=== PATIENT | female | born 1950 | race Caucasian/White ===

== ENCOUNTER 2017-03-10 19:42 | Inpatient (IN) | payer MEDICARE ==
[~2017-03-10] VITALS: Ht 162.5 cm; Wt 97.7 kg
--- NOTE | ~2017-03-10 | PR ---
[place], [place] PROGRESS NOTE [id number] UNIT #: [id number] ROOM: 412 DOCTOR: LUIZA REEVES MD BIRTHDATE: [birth year] DOS: 03/14/2017 SUBJECTIVE: The patient continues to do better. OBJECTIVE: VITAL SIGNS: Blood pressure of 150/52, heart rate 50 beats per minute, breathing 28 times per minute, temperature is 98 degrees Fahrenheit. GENERAL APPEARANCE: The patient is alert and oriented x 3, in no visible distress. Obesity and generalized weakness. HEENT AND NECK: Exam within normal limits. CARDIOVASCULAR SYSTEM: Heart rate is regular in rate and rhythm. S1 and S2 normally audible. LUNGS: Clear to auscultation. ABDOMEN: Soft, nontender. No obvious organomegaly. Bowel sounds are present. EXTREMITIES: Without significant cyanosis or edema. IMPRESSION: 1. The patient with left foot infection and diabetic foot ulcer as well as foreign body found on the MRI, is being taken for surgery for foreign body removal by the foot doctors tomorrow. Case was discussed with Dr. Asif. 2. Acute systolic type congestive heart failure, resolved with diuresis. The patient was followed by the swedish masseuse, Dr. Garcia. 3. Type 2 diabetes mellitus. Blood sugars monitored and treated. 4. Chronic constipation, treated with MiraLax. 5. Mixed hyperlipidemia. The patient is on atorvastatin. 6. The patient with acute over chronic kidney disease and diabetic nephropathy. The patient's BUN and creatinine have improved to 52 and 1.97. LUIZA REEVES MD CM:PNTRANS [id number] LUIZA REEVES MD 03/15/17 0431 interface
--- NOTE | ~2017-03-10 | CON ---
[place], [place] REPORT OF CONSULTATION [id number] UNIT #: [id number] ROOM: 412 DOCTOR: GIOVANNY MASON DPM BIRTHDATE: [birth year] DOS: 03/13/2017 PODIATRY CONSULT SUBJECTIVE: This 67-year-old white female was seen as consulted for evaluation of a red and swollen area on the bottom of her left foot. The patient is diabetic and she states about a week ago, she was walking barefoot in her carpet at dining room and she felt a pain on the bottom of the foot. She has poor vision, so she did not really see anything on the floor, she did feel around to see if there is anything sharp, but she really did not find anything. She had no bleeding from her foot and as far as she knows, there was no open wound at this time. Over the past week, it has been getting slowly but progressively painful and more swollen and red. She was admitted a few days ago for CHF, but also because of the foot, she was started on IV Zosyn yesterday and she states her foot is feeling better, but she is still having pain. PAST MEDICAL PROBLEMS: Includes history of cardiac issues status post bypass, congestive heart failure, coronary artery disease, history of chest pain, chronic renal failure stage 3, hypertension, normocytic anemia, history of shortness of breath, type 2 diabetes with hyperglycemia. ALLERGIES: The patient has no known drug allergies. CURRENT MEDICATIONS: Include vitamin D, Zosyn, Coreg, Levemir, Lipitor, Tylenol, Imdur, Apresoline, Lasix, Celexa, Glucotrol, and baby aspirin. OBJECTIVE: Upon lower extremity physical examination, pedal pulses are barely palpable at DP and PT. Skin temperature is business continuity analyst the foot. CFT is 2 seconds to all digits. Mild dependent edema is seen. Sensation appears minimally decreased, but essentially intact. The plantar surface of the left forefoot near the first metatarsal head has a small wound present, which measures about 0.4 cm in diameter. There is some localized fluctuance of about 1-2 cm around this with some erythema as well. There is tenderness noted to palpation. Radiographs were negative for a foreign body in the soft tissues. ASSESSMENT: Type 2 diabetes with possible puncture wound and possible retained foreign body of left foot and abscess left foot. PLAN: Consult is performed. I prepped the left foot area with Betadine. Using an 11 blade, I incised the area by about 1 cm. I did express about a 0.25 mL of purulence, but no foreign body. There was a small tract noted but it did not go into subcutaneous tissue at this time. Again, no foreign body was found. Cultures were done of the area. I will order an MRI to evaluate for any remaining abscess or retained foreign body. I will order arterial vascular studies to evaluate for underlying PAD because of longstanding diabetes and history of coronary artery disease. I discussed with her that if there is a foreign body or any remaining abscess, she may need the area incised surgically and flushed out in the OR. We will see what the testing shows and I will follow her up tomorrow. Just a dry dressing at this time to the area. [place], [place] REPORT OF CONSULTATION NAME: JANELLE NI UNIT #: [id number] ROOM: 412 DOCTOR: GIOVANNY MASON DPM BIRTHDATE: [birth year] Thank you for the opportunity to take part in care of this patient. GIOVANNY MASON DPM CM:CONSTR:REPORT OF CONSULTATION 8 03/13/17 194 interface
--- NOTE | ~2017-03-10 | PR ---
[place], [place] PROGRESS NOTE NAME: JANELLE NI [facility] #: [id number] UNIT #: [id number] ROOM: 412 DOCTOR: LUIZA REEVES MD BIRTHDATE: [birth year] DOS: 03/12/2017 SUBJECTIVE: The patient complaining of having sustained a foot injury to the left foot, she does not know how, but now is causing pain. OBJECTIVE: VITAL SIGNS: Blood pressure 165/49, heart rate of 56 beats per minute, breathing 18 times per minute, temperature of 98.4 degrees Fahrenheit. GENERAL APPEARANCE: The patient is alert and oriented x 3, in no visible distress. HEENT AND NECK: Exam within normal limits. CARDIOVASCULAR SYSTEM: Heart rate is regular in rate and rhythm. S1 and S2 normally audible. LUNGS: Clear to auscultation. ABDOMEN: Soft, nontender. No obvious organomegaly. Bowel sounds are present. EXTREMITIES: Left foot showing redness and swelling at the base of the great toe and the ball of the foot. IMPRESSION: 1. For the patient's cellulitis and infection of the left foot, I am getting a consult with the foot doctors and starting her on intravenous Zosyn. 2. Type 2 diabetes mellitus with blood sugars reasonably controlled, ranging between 120-160 range. 3. Coronary artery disease of the [place] vessels without chest pains. 4. Chronic atrial fibrillation with controlled heart rates. 5. Systolic-type congestive heart failure, chronic, compensated. 6. Chronic constipation, treated with MiraLax. 7. Mixed hyperlipidemia, treated with atorvastatin. 8. Obesity and generalized weakness. Physical therapy had been consulted. 9. Acute over chronic kidney disease. BUN and creatinine are 35 and 1.9. 10. Hyperkalemia from acute kidney failure, resolved with treatment. Potassium level normal at 4.6 today. LUIZA REEVES MD CM:PNTRANS [phone] LUIZA REEVES MD 03/13/17 1445 interface
--- NOTE | ~2017-03-10 | O ---
[place], [place] OPERATIVE NOTE NAME: JANELLE NI [facility] #: [id number] UNIT #: [id number] ROOM: 412 DOCTOR: TARAS ROLAND DPM BIRTHDATE: [birth year] DOS: 03/15/2017 PREOPERATIVE DIAGNOSIS: Foreign body, plantar first left MPJ with abscess. POSTOPERATIVE DIAGNOSIS: Foreign body, plantar first left MPJ with abscess. PROCEDURE: Incision and drainage of abscess plantar first left MPJ with removal of foreign body 2.5 cm in length segment of wood. SURGEON: Taras Roland DPM HOME HELP AIDE: None. ANESTHESIA: LMAC. BLOOD LOSS: Approximately 2 mL. PACKING: Half-inch plain packing. OPERATION IN DETAIL: The patient was brought to the operating room and placed in operating table in supine position. Anesthesia was administered per Anesthesia Department. Local block was performed of 10 mL of 0.5% Marcaine plain. The left foot was prepped and draped in usual aseptic manner. Attention was directed to plantar first left MPJ, where an abscess site was noted. There was localized erythema and purulent drainage under the skin noted. Incision was made with a 15 blade to and through subcutaneous tissue level. There was purulent drainage noted with an abscess, which tracked distally. The incision was lengthened and ended up approximately 5 cm in length in a curvilinear fashion, extending along the length of the abscess. Probing of the abscess revealed a fragment of wood, which was removed in toto. It measured approximately 2.5 cm in length corresponding with the MRI report. Culture was taken of the drainage. Additionally, at this time, pulse irrigation with sterile saline was utilized for irrigation. Dressing applied included half-inch plain packing, wet-to-dry dressing with 4x4s, Kerlix, ABD, and Adrian bandage. A tourniquet was applied preoperatively to the left ankle, it was inflated 240 mmHg during the procedure, it was on for a total duration of 10 minutes. Upon release of the tourniquet, capillary refill time was less than 1 second to all digits of the left foot. The patient tolerated the procedure and anesthesia well and left the OR with vital signs stable and neurovascular status intact. The patient will be sent back to the nursing unit, resume previous orders. We will write for surgical shoe and a walker with PT training to allow only partial weightbearing in the surgical shoe. Dressing will be reinforced as needed. Antibiotics per Infectious Disease and the patient will be seen tomorrow for packing and dressing change. [place], [place] OPERATIVE NOTE NAME: JANELLE NI [facility] UNIT #: [id number] ROOM: [facility] DOCTOR: TARAS ROLAND DPM BIRTHDATE: [birth year] TARAS ROLAND DPM CM:OPRECORD:OPERATIVE NOTE [id number] TARAS ROLAND DPM 03/15/172021 interface
--- NOTE | ~2017-03-10 | PR ---
[place], [place] PROGRESS NOTE NAME: JANELLE NI [facility] #: [id number] UNIT #: [id number] ROOM: 412 DOCTOR: MARLON PERRYGIOVANNY BIRTHDATE: [birth year] DOS: 03/14/2017 SUBJECTIVE: This patient is seen for followup of a small abscess on the plantar left foot. I saw her yesterday and did a bedside incision and drainage and I was suspicious of foreign body. She had her MRI done this morning and she is having her arterial vascular exam done this afternoon. She states the foot is feeling better since she has been on antibiotics, but is still a little swollen and red. OBJECTIVE: Neurovascular status is unchanged, plantar left foot near the first metatarsal head has a small incision where I incised it yesterday. There is some localized edema and erythema about 1-2 cm around this with some minimal erythema past that area. There is still tenderness noted to palpation. Minimal expressible drainage is seen. I inspected the area and again at bedside and I cannot see a foreign body. Her MRI was positive for a 2 cm foreign body that was plantar to the first metatarsal head. There was no bone involvement, no joint involvement. She did have a 1 cm fluid collection around the foreign body. ASSESSMENT: Diabetes with foreign body and a small abscess, left foot. PLAN: Evaluation and management. I changed the dressing. I discussed with the patient she has a foreign body on the plantar left foot that needs to be removed. We will schedule her for removal of foreign body tomorrow with Dr. Branch. He is in [place] tomorrow. I did explain to her that he will be doing the procedure. I discussed preoperative perioperative and postoperative course as well as possible complications include, but not limited to pain, swelling, infection, possibility of not finding the foreign body, possibility of need for further procedures and further surgeries and possibility of worsening infection. She will have this procedure done tomorrow here at the hospital under LMAC anesthesia. She is asked questions and all questions were answered. We will do the consent. We will make her n.p.o. tonight after midnight and she will have the procedure done tomorrow and hopefully go home within a day or so after the procedure. I will discuss this with Dr. Castle as well. [place], [place] PROGRESS NOTE NAME: JANELLE NI UNIT #: [id number] ROOM: [facility] DOCTOR: GIOVANNY MASON DPM BIRTHDATE: [birth year] GIOVANNY MASON DPM CM:M[place]ISON [phone] GIOVANNY MASON DPM 03/15/174 interface
--- NOTE | ~2017-03-10 | PR ---
[place], [place] PROGRESS NOTE NAME: JANELLE NI [facility] #: [id number] UNIT #: [id number] ROOM: 412 DOCTOR: NNEKA MCNEILL,SILVIO BIRTHDATE: [birth year] DOS: CARDIOLOGY PROGRESS NOTE SUBJECTIVE: The patient was seen at her bedside today for followup of her ischemic cardiomyopathy and acute hyperkalemia. She had recently been placed on spironolactone for a heart failure. Unfortunately, she did go into worsening renal failure and hyperkalemia as a result and an injury to her left foot prompted her admission. We did adjust her cardiac medications and she now feels much better, but she states that her foot is still painful and warm and swollen. PHYSICAL EXAMINATION: VITAL SIGNS: Today, her pulse is 97 and regular, blood pressure is 165/50. She is afebrile. She weighs 97 kilograms with a body mass index of 36.5. HEENT: Normocephalic, atraumatic. NECK: Supple. She has no jugular distention. CHEST: Clear. HEART: Has a regular rhythm with an S4 gallop. I did not hear an S3. ABDOMEN: Benign. EXTREMITIES: Her left ankle and foot are swollen and the first MTP joint area is very swollen and warm. It is tender to touch. From a cardiac standpoint, she has improved. We can adjust her blood pressure medications further as an outpatient if she is otherwise cleared to be discharged. Unfortunately, her foot does look like it may have an infection. I have discussed this with Dr. Castle who will obtain other consultants to assist in the management of this finding. I thank Dr. Castle for asking our advice regarding her care. SILVIO EARLY MD CM:PNTRANS 1601 0 SILVIO EARLY MD 03/13/17820 interface
--- NOTE | ~2017-03-10 | DS ---
[place], [place] DISCHARGE SUMMARY NAME: JANELLE NI [facility] #: [id number] UNIT #: [id number] ROOM: 412 DOCTOR: LUIZA REEVES MD BIRTHDATE: [birth year] DOS: 03/15/2017 DISCHARGE DIAGNOSES: 1. Foreign body, a toothpick, removed from the patient's left foot. 2. Cellulitis involving left foot, improving with treatment. 3. Peripheral arterial disease on venous Dopplers needs. Further workup by Vascular Surgery. 4. Acute systolic type congestive heart failure, treated. 5. Type 2 diabetes mellitus. 6. Chronic constipation, controlled with MiraLax. 7. Mixed hyperlipidemia, being treated with atorvastatin. 8. The patient's chronic kidney disease stage 3A and diabetic nephropathy. HOSPITAL COURSE: The patient presented to the Emergency Department with 1 week complaints of increasing shortness of breath, and she was diagnosed as having acute systolic type congestive heart failure. The patient was diuresed with IV Lasix in her, and she is clinically improved and being discharged to home. The patient with cellulitis from her left foot by Dr. Asif. The patient also was seen by Dr. Godinez, the Infectious Disease specialist, and we are following her antibiotic recommendations, which she wants to continue for next 2 weeks as an outpatient. The patient's wound cultures grew Staphylococcus aureus. Acute systolic type congestive heart failure. The patient diuresed with IV Lasix and was seen by her corrosion control engineer, Dr. Gacria and her treatment adjusted. Acute hyperkalemia, apparently related to congestive heart failure and chronic kidney disease, resolved with hydration. Coronary artery disease of [place] vessels without chest pains. Type 2 diabetes mellitus with reasonably controlled blood sugars. The patient was found to have significant peripheral arterial disease on arterial Dopplers of lower extremities, and she will need further evaluation by Vascular Surgery as an outpatient. The patient's left foot foreign body, apparently a wood splinter or a toothpick was removed from her foot, and she grew Staphylococcus aureus on wound cultures. Outpatient antibiotic therapy is being recommended and ordered by Dr. Charles Godinez. Laboratory data: Wound culture results as mentioned above. Ultrasound of the lower extremity arteries showed occluded right posterior tibial artery. Type 2 diabetes mellitus. Blood sugars were monitored and treated. Chronic constipation, which is controlled with laxatives. [place], [place] DISCHARGE SUMMARY NAME: JANELLE NI UNIT #: [id number] ROOM: 412 DOCTOR: LEANDRO MCNEILL,LUIZA Euceda BIRTHDATE: [birth year] Diabetic nephropathy with chronic kidney disease with some elevation of BUN and creatinine, which was treated with hydration with normal saline. LABORATORY DATA: BUN and creatinine 52 and 1.97. EGFR 25, [place] GFR 30. DISCHARGE MANAGEMENT: The patient was started on Keflex [address] Charles Godinez. Aspirin 81 mg a day, glipizide 10 mg a day, citalopram 20 mg daily, furosemide 40 mg a day, Glucovance q.a.m. 17 grams, furosemide was 40 mg daily, citalopram was 20 mg a day, glipizide was 10 mg daily, Imdur 60 mg a day, MiraLax 17 grams a day, Tylenol p.r.n., atorvastatin 20 mg a day, Levemir insulin, Coreg 12.5 mg b.i.d., hydralazine 100 mg t.i.d., and ergocalciferol weekly 50,000 units. LUIZA REEVES MD CM:DISCHARG [phone] LUIZA REEVES MD 03/15/178 interface
--- NOTE | ~2017-03-10 | WRIGHTHP ---
[place], [place] PATIENT HISTORY AND PHYSICAL EXAM NAME: JANELLE NI [facility] #: [id number] UNIT #: [id number] ROOM: 412 DOCTOR: LUIZA REEVES MD BIRTHDATE: [birth year] DOS: HISTORY OF PRESENT ILLNESS: 1. The patient is a 67-year-old female with a past medical history of chronic systolic type congestive heart failure with 35% left ventricular ejection fraction. 2. Coronary artery disease of the [place] vessels with history of myocardial infarction, 3-vessel coronary artery bypass grafts in the past. 3. History of type 2 diabetes mellitus. 4. Benign essential hypertension. 5. Chronic atrial fibrillation. 6. Diabetic nephropathy with chronic kidney disease stage 3A and diabetic retinopathy. The patient presented to the Emergency Department with 1 week complains of progressive shortness of breath. The patient was evaluated, no chest pain, no dizziness or fainting episodes. The patient says she had been on Aldactone for about a week, which is new for her. The patient has a mild dry cough. REVIEW OF SYSTEMS: LUNGS: Increasing shortness of breath and mild cough. GASTROINTESTINAL: No nausea, vomiting, diarrhea or constipation. She had just one episode of diarrhea yesterday. CARDIOVASCULAR SYSTEM: No chest pains or palpitations. FAMILY HISTORY: Noncontributory. SOCIAL HISTORY: Denies smoking cigarettes, alcohol and drug abuse. HOME MEDICATIONS: Vitamin D, Lipitor, MiraLax, Imdur, furosemide, citalopram, glipizide, Coreg, aspirin, hydralazine. ALLERGIES: No known drug allergies. PHYSICAL EXAMINATION: GENERAL: Alert and oriented x 3, moderately obese and no visible distress. Generalized weakness. HEENT AND NECK: Extraocular movements are intact. Sclerae are anicteric. Oral mucosa is moist and clean. No obvious facial weakness. Neck is supple without any lymphadenopathy. No thyromegaly. No JVD. No carotid arterial bruits. LUNGS: Clear to auscultation. No wheezing. No rhonchi. CARDIOVASCULAR SYSTEM: Heart rate is regular in rate and rhythm. S1 and S2 normally audible. No significant murmur or any other abnormal cardiac sounds. ABDOMEN: Soft, nontender. No obvious organomegaly. Bowel sounds are present. No obvious herniation. EXTREMITIES: Without significant cyanosis or edema. Warm to touch. CENTRAL NERVOUS SYSTEM: Alert and oriented x 3. Cranial nerves II-XII are intact. Speech is normal. The patient is able to move all extremities. Normal muscle strength. Deep tendon reflexes are equal on both sides. Plantars were downgoing. [place], [place] PATIENT HISTORY AND PHYSICAL EXAM [facility]: [id number] #: [id number] ROOM: 412 DOCTOR: LUIZA REEVES MD BIRTHDATE: [birth year] IMPRESSION: 1. The patient presenting with acute systolic type congestive heart failure, being treated with diuresis with IV Lasix and her pharmaceutical representative, Dr. Garcia has been consulted. 2. Acute hyperkalemia secondary to congestive heart failure is being closely monitored and followed and hyperkalemia has improved with treatment. 3. Acute over chronic kidney failure related to congestive heart failure with elevation of BUN and creatinine and kidney functions to be monitored closely. 4. Coronary artery disease of the [place] vessel, status post coronary artery bypass grafts. The patient was treated with aspirin and Imdur. 5. Type 2 diabetes mellitus with blood sugars to be monitored and treated and the patient kept on a no concentrated sweet diet. 6. Obesity and generalized disability. The patient to work with physical therapy. 7. Mixed hyperlipidemia treated with atorvastatin. 8. Chronic constipation treated with MiraLax. LUIZA REEVES MD CM:HISPHYS:PATIENT HISTORY AND PHYSICAL EXAMINATION 1006 1050 LUIZA REEVES MD 03/11/17 1050 interface
--- NOTE | ~2017-03-10 | PR ---
[place], [place] [facility]GR[id number] #: [id number] ROOM: 412 DOCTOR: SILVIO EARLY MD BIRTHDATE: [birth year] DOS: 03/13/2017 CARDIOLOGY PROGRESS NOTE SUBJECTIVE: The patient was seen today 03/13/2017 at her bedside. She is a 67-year-old woman, who has a history of ischemic cardiomyopathy with chronic congestive heart failure who presented to the hospital with acute hyperkalemia most likely brought on by recent initiation of spironolactone therapy. Spironolactone was stopped and her renal failure has improved. Potassium levels have also improved. Her fluid status is stable and her heart failure is now compensated. During this hospitalization, she did note that she had injured her foot and had swelling and pain in her heel. This is being treated as a separate problem by Dr. Castle and the nurse consultant. The patient tells me that her foot was debrided yesterday and further testing with an MRI, etc. are pending. She does, however, feel lot less pain and is clinically improved. PHYSICAL EXAMINATION: VITAL SIGNS: Today, her pulse is 52 and regular, blood pressure 146/60. She is afebrile. She weighs 97 kilograms with a body mass index of 36.5. NECK: Supple. She has no jugular distention. Carotids are full. LUNGS: Respirations are unlabored. Her chest is clear to auscultation and percussion. HEART: Has a regular rhythm with an S4 gallop, but no S3. EXTREMITIES: Showed no edema on the right. Her left ankle and foot were very swollen and the first MTP joint area was swollen and warm yesterday. Today, it is bandaged after debridement. IMPRESSION: 1. Ischemic cardiomyopathy. The patient appears to be well compensated on her current medications. 2. Foot infection. This is being managed by Dr. Castle and the nurse consultant. We will continue to follow the patient intermittently. We thank Dr. Castle for asking our advice regarding her care. [place], [place] PROGRESS NOTE NAME: JANELLE NI UNIT #: [id number] ROOM: 412 DOCTOR: SILVIO EARLY MD BIRTHDATE: [birth year] SILVIO EARLY MD CM:PNJASPER [phone] SILVIO EARLY MD 03/14/17 0245 interface
--- NOTE | ~2017-03-10 | PR ---
[place], [place] PROGRESS NOTE NAME: JANELLE NI [facility] #: [id number] UNIT #: [id number] ROOM: 412 DOCTOR: LEANDRO MCNEILL,LUIZA Euceda BIRTHDATE: [birth year] DOS: 03/13/2017 SUBJECTIVE: The patient is feeling much better, less pain in her left foot. OBJECTIVE: VITAL SIGNS: Blood pressure 146/60, heart rate of 52 beats per minute, breathing 16 times per minute, temperature 98.7 degrees Fahrenheit. IMPRESSION: The patient with left foot cellulitis and small abscess at the base of the big toe, status post drainage and being treated with antibiotics. An MRI of the foot is pending for tomorrow. Case was discussed with Dr. Asif, the supervisor case loading who wants the patient to be further evaluated with the MRI and to look for foreign body prior to discharging to home on oral antibiotics. 1. Acute systolic type congestive heart failure, resolved with diuresis with IV Lasix. Court Manager, Dr. Garcia followed the patient. 2. Type 2 diabetes mellitus. Blood sugars are being monitored and treated. 3. Mixed hyperlipidemia, treated with atorvastatin. 4. Chronic constipation, controlled with MiraLax. 5. Acute over chronic kidney disease with diabetic nephropathy. I will repeat serum electrolytes, BUN and creatinine tomorrow. LUIZA REEVES MD CM:PNTRANS 1258 [id number] LUIZA REEVES MD 03/14/17 0315 interface
--- NOTE | ~2017-03-10 | EKG ---
[place], [place] ELECTROCARDIOGRAM REPORT NAME: JANELLE NI UNIT #: [id number] ROOM: 412 DOCTOR: SILVIO EARLY MD BIRTHDATE: [birth year] DOS: 03/10/2017 TIME: 2034. FINDINGS: Sinus bradycardia at rate of 55 with nonspecific intraventricular conduction defect. QRS duration is [address] and T wave changes. Abnormal electrocardiogram. SILVIO EARLY MD CM:EKGRPT:ELECTROCARDIOGRAM REPORT [id number] SILVIO EARLY MD
[~2017-03-10 19:42] MED LIST: ASPIR 8181 MG PO; ASPIRIN EC325 MG PO; BACTRIM 400 MG-1 TAB PO; BACTRIM DS 8001 TA1 PO; CARVEDILOL6.25 MG PO; CEFTIN500 M1 PO; CELEXA20 MG PO; COREG12.5 M1 PO; COUMADIN4 M1 PO; COUMADIN5 M2 PO; DO NOT PROFILE T1 EA DEN; DOXYCYCLINE100 MG PO; EC NAPROSYN500 MG PO; GLUCOTROL10 MG PO; HUMULIN 70 U/ML10 ML; HUMULIN 70/30 710 M1 SC; HUMULIN R U-100 U/ML IJ; HYDRALAZINE HYD50 MG PO; HYDROCODONE BIT1 T11 PO; IMDUR SA30 MG PO; IMDUR SA60 M1 PO; LANTUS100 U/ML SC; LASIX40 MG PO; LIPITOR20 MG PO; LISINOPRIL; LOPRESSOR25 MG PO; METOPROLOL25 MG PO; NORVASC10 MG PO; PRADAXA150 MG PO; PRINIVIL10 MG PO; SENNA LAX8.6 M1 PO; SEPTRA DS 800 M1 TAB PO; SIMVASTATIN20 MG PO; VICODIN 500 MG-1 TAB PO; VITAMIN B12500 MCG PO; VITAMIN D50000 I3 PO
[2017-03-10 19:59] VITALS: BP 130/75
[2017-03-10] MEDS ORDERED: MIRALAX POWDER255 G1 PO (20:00)
[2017-03-10] MEDS ORDERED: ALDACTONE25 M1 PO (20:02)
[2017-03-10 20:26] LABS: BASO % 0.3 % (0.0-1.0); EOS # 0.2 10*3/uL (0.0-0.4); EOS % 2.3 % (1.0-4.0); HEMATOCRIT 30.3 % (37.0-47.0); HEMOGLOBIN 9.7 g/dl (12.0-16.0); LYMPH # 1.2 10*3/uL (1.3-4.4); LYMPH % 16.9 % (27.0-41.0); MEAN CELL VOLUME 89.9 fl (81.0-99.0); MEAN CORPUSCULAR HGB 28.8 pg (27.0-31.0); MEAN PLATELET VOLUME 10.5 fl (9.6-12.3); MONO # 0.7 10*3/uL (0.1-1.0); MONO % 9.3 % (3.0-9.0); NEUT # 5.2 10*3/uL (2.3-7.9); NEUT % 70.9 % (47.0-73.0); PLATELET COUNT AUTOMATED 179 10*3/uL (130-400); RED BLOOD COUNT 3.37 10*6/uL (4.10-5.10); RED CELL DISTRI WIDTH 13.6 % (0-14.5); WHITE BLOOD COUNT 7.3 10*3/uL (4.8-10.8)
[2017-03-10 20:43] LABS: ALBUMIN 3.3 gm/dl (3.1-4.5); BILIRUBIN, TOTAL 0.5 mg/dl (0.2-1.0); POTASSIUM 5.8 mmol/L (3.5-5.1); TOTAL PROTEIN 7.7 gm/dL (6.4-8.2)
[2017-03-10 20:44] LABS: TROPONIN I 0.025 ng/ml (<0.045)
[2017-03-10 21:03] VITALS: BP 161/62
[2017-03-10 21:33] VITALS: BP 174/63
[2017-03-10 22:07] VITALS: BP 191/77
[2017-03-10 23:00] VITALS: BP 159/70
[2017-03-11 06:18] LABS: POTASSIUM 4.6 mmol/L (3.5-5.1)
[2017-03-11 08:00] VITALS: BP 182/73
[2017-03-11 12:00] VITALS: BP 166/58
[2017-03-11 16:00] VITALS: BP 146/40
[2017-03-11 20:00] VITALS: BP 152/60
[2017-03-12] VITALS: BP 168/58
[2017-03-12 08:00] VITALS: BP 164/52
[2017-03-12 12:00] VITALS: BP 165/49
[2017-03-12 16:00] VITALS: BP 186/65
[2017-03-12 20:40] VITALS: BP 169/52
[2017-03-12 23:46] VITALS: BP 132/54
[2017-03-13 08:00] VITALS: BP 146/60
[2017-03-13 12:00] VITALS: BP 136/62
[2017-03-13 16:00] VITALS: BP 151/53
[2017-03-13 20:00] VITALS: BP 160/57
[2017-03-13 23:54] VITALS: BP 145/59
[2017-03-14 06:42] LABS: POTASSIUM 4.9 mmol/L (3.5-5.1)
[2017-03-14 08:00] VITALS: BP 150/52
[2017-03-14 12:00] VITALS: BP 157/56
[2017-03-14 16:00] VITALS: BP 146/55
[2017-03-14 20:00] VITALS: BP 156/59; BP 165/55
[2017-03-15] VITALS: BP 135/57
[2017-03-15 08:00] VITALS: BP 153/51
[2017-03-15 12:00] VITALS: BP 179/61
[2017-03-15 12:12] VITALS: BP 154/60
[2017-03-15 12:27] VITALS: BP 172/68
[2017-03-15 15:53] VITALS: BP 144/41
[2017-03-15] MEDS ORDERED: KEFLEX500 M1 PO (17:05)
== END 2017-03-15 18:34 | disposition home or self-care (01) | DRG 579 ==
LOC: ED 19:42 → EDHOLD 21:45 → 4E 21:45
PROVIDERS: Internal Medicine; Nurse Practitioner Family
PROC: 0J9R0ZZ Drainage of Left Foot Subcutaneous Tissue and Fascia, Open Approach (ICD-10-PCS; principal; 2017-03-15)
PROC: 0JCR0ZZ Extirpation of Matter from Left Foot Subcutaneous Tissue and Fascia, Open Approach (ICD-10-PCS; principal; 2017-03-15)
DX: L03.116 Cellulitis of left lower limb (principal); I50.23 Acute on chronic systolic (congestive) heart failure; N17.9 Acute kidney failure, unspecified; I13.0 Hypertensive heart and chronic kidney disease with heart failure and stage 1 through stage 4 chronic kidney disease, or unspecified chronic kidney disease; L02.612 Cutaneous abscess of left foot; S90.852A Superficial foreign body, left foot, initial encounter; E11.621 Type 2 diabetes mellitus with foot ulcer; L97.529 Non-pressure chronic ulcer of other part of left foot with unspecified severity; E87.5 Hyperkalemia; B95.61 Methicillin susceptible Staphylococcus aureus infection as the cause of diseases classified elsewhere; I25.10 Atherosclerotic heart disease of native coronary artery without angina pectoris; I48.2 Chronic atrial fibrillation; E11.22 Type 2 diabetes mellitus with diabetic chronic kidney disease; N18.3 Chronic kidney disease, stage 3 (moderate); E11.319 Type 2 diabetes mellitus with unspecified diabetic retinopathy without macular edema; I25.5 Ischemic cardiomyopathy; E11.51 Type 2 diabetes mellitus with diabetic peripheral angiopathy without gangrene; E78.2 Mixed hyperlipidemia; K59.09 Other constipation; E66.9 Obesity, unspecified; Z95.1 Presence of aortocoronary bypass graft; I25.2 Old myocardial infarction; Z68.36 Body mass index [BMI] 36.0-36.9, adult; Z82.49 Family history of ischemic heart disease and other diseases of the circulatory system; Z80.8 Family history of malignant neoplasm of other organs or systems; Z83.3 Family history of diabetes mellitus

== ENCOUNTER → 2017-07-15 | Outpatient (CLI) | payer MEDICARE ==
[~2017-07-15] MED LIST changes: +ALDACTONE25 M1 PO; +KEFLEX500 M1 PO; +MIRALAX POWDER255 G1 PO
[2017-07-15 12:17] LABS: BASO % 0.3 % (0.0-1.0); EOS # 0.2 10*3/uL (0.0-0.4); EOS % 2.4 % (1.0-4.0); HEMATOCRIT 30.2 % (37.0-47.0); HEMOGLOBIN 9.8 g/dl (12.0-16.0); LYMPH # 1.3 10*3/uL (1.3-4.4); LYMPH % 21.1 % (27.0-41.0); MEAN CORPUSCULAR HGB 28.6 pg (27.0-31.0); MEAN CORPUSCULAR HGB CONC 32.5 g/dl (33.0-37.0); MEAN PLATELET VOLUME 10.6 fl (9.6-12.3); MONO # 0.6 10*3/uL (0.1-1.0); MONO % 9.1 % (3.0-9.0); NEUT # 4.2 10*3/uL (2.3-7.9); NEUT % 66.8 % (47.0-73.0); PLATELET COUNT AUTOMATED 183 10*3/uL (130-400); RED BLOOD COUNT 3.43 10*6/uL (4.10-5.10); RED CELL DISTRI WIDTH 13.7 % (0-14.5); WHITE BLOOD COUNT 6.3 10*3/uL (4.8-10.8)
[2017-07-15 12:23] LABS: URINE CREATININE RANDOM 57.7 mg/dL
[2017-07-15 12:45] LABS: ALBUMIN 3.2 gm/dl (3.1-4.5); CREATININE 1.67 mg/dL (0.55-1.02); MAGNESIUM 2.1 mg/dL (1.5-2.1)
[2017-07-15 12:47] LABS: BILIRUBIN NEGATIVE (NEGATIVE); BLOOD 1+ (NEGATIVE); CLARITY CLOUDY (CLEAR); COLOR YELLOW (YELLOW); GLUCOSE NEGATIVE (NEGATIVE); KETONE NEGATIVE (NEGATIVE); LEUKO ESTERASE 3+ (NEGATIVE); NITRITE NEGATIVE (NEGATIVE); SPECIFIC GRAVITY 1.005 (1.005-1.030); UROBILINOGEN 0.2 E.U./dl (0.2-1.0)
[2017-07-15 12:48] LABS: WBC TNTC wbc/hpf (0-5)
[2017-07-15 13:59] LABS: FERRITIN 36.4 ng/mL (10.0-291.0); PTH INTACT 262.7 pg/mL (14.0-72.0); VITAMIN D, 25-HYDROXY 36.7 ng/mL (30-100)
== END | disposition home or self-care (01) ==
LOC: LAB 11:41
PROVIDERS: Internal Medicine Nephrology
DX: N18.4 Chronic kidney disease, stage 4 (severe) (principal); N25.81 Secondary hyperparathyroidism of renal origin; D63.1 Anemia in chronic kidney disease; R82.79 Other abnormal findings on microbiological examination of urine

== ENCOUNTER 2017-09-24 21:20 | Inpatient (IN) | payer MEDICARE ==
[~2017-09-24] VITALS: Ht 162.5 cm; Wt 95.3 kg
--- NOTE | ~2017-09-24 | PR ---
[place], [place] PROGRESS NOTE NAME: [facility] #: [id number] UNIT #: [id number] ROOM: 506 DOCTOR: ULIZA REEVES MD BIRTHDATE: [birth year] DOS: 09/27/2017 The patient's breathing continues to improve. Blood pressure 150/54, heart rate of 52 beats per minute, breathing 20 times per minute, temperature 98.2 degrees Fahrenheit. Type 2 diabetes mellitus. Blood sugars are being monitored and treated. Stage 4 diabetic nephropathy with elevation of BUN and creatinine, improved with diuresis and treatment for congestive heart failure. Acute systolic type congestive heart failure, improved with diuresis. The patient was followed by Cardiology. Coronary artery disease of the [place] vessels with bypass grafts in 2001 without chest pains. Mixed hyperlipidemia, treated and controlled. Benign essential hypertension with controlled blood pressures with treatment. LUIZA REEVES MD CM:MADISON 51 [phone] LUIZA REEVES MD 09/27/172127 interface
--- NOTE | ~2017-09-24 | PR ---
[place], [place] PROGRESS NOTE NAME: JANELLE NI [facility] #: [id number] UNIT #: [id number] ROOM: 506 DOCTOR: LUIZA REEVES MD BIRTHDATE: [birth year] DOS: 09/26/2017 SUBJECTIVE: The patient with acute congestive heart failure, systolic type, with improving shortness of breath. OBJECTIVE: VITAL SIGNS: Blood pressure 165/57, heart rate 51 beats per minute, breathing 18 times per minute, temperature 98.1 degrees Fahrenheit. GENERAL APPEARANCE: The patient is alert and oriented x 3, in no visible distress. HEENT AND NECK: Exam within normal limits. CARDIOVASCULAR SYSTEM: Heart rate is regular in rate and rhythm. S1 and S2 normally audible. LUNGS: Clear to auscultation. ABDOMEN: Soft, nontender. No obvious organomegaly. Bowel sounds are present. EXTREMITIES: Without significant cyanosis or edema. IMPRESSION: 1. Acute systolic type congestive heart failure, improving with diuresis. 2. Acute over chronic kidney disease. BUN and creatinine improved with diuresis. The patient has underlying stage III chronic kidney disease. 3. Hyperkalemia, resolved with diuresis. 4. Urinary tract infection, urine growing heavy gram-negative bacilli, to be treated with Rocephin. 5. The patient overall starting to feel much better with present treatment, which will be continued. LUIZA REEVES MD CM:PNTRANS 13 37 LUIZA REEVES MD 09/26/172237 interface
--- NOTE | ~2017-09-24 | DS ---
[place], [place] DISCHARGE SUMMARY NAME: JANELLE NI [facility] #: [id number] UNIT #: [id number] ROOM: 506 DOCTOR: LUIZA REEVES MD BIRTHDATE: [birth year] DOS: 09/28/2017 DISCHARGE DIAGNOSES: 1. Urinary tract infection with Proteus mirabilis. 2. Chronic kidney disease stage 3a. 3. Mixed hyperlipidemia. 4. Benign essential hypertension. 5. Coronary artery disease of [place] vessels, with bypass grafts in 2001. 6. Acute systolic type congestive heart failure, improved with diuresis. 7. Type 2 diabetes mellitus. HOSPITAL COURSE: The patient was admitted with increased shortness of breath and CHF and vascular congestion seen on the chest x-ray at time of admission, resolved with treatment with diuresis with IV Bumex, with left ejection fraction of only 35%. The patient's repeat chest x-ray shows clearing of the congestive heart failure and her oral Bumex will be continued. Mixed hyperlipidemia, followed and treated. Coronary artery disease of [place] vessels, with bypass grafts in 2001, without any chest pains. No signs of cardiac ischemia. The patient was evaluated by Cardiology. Chronic kidney disease stage 3a, with improvement in BUN and creatinine with diuresis. LABORATORY DATA: BUN and creatinine 15 and 1.5 prior to discharging. The patient's urine cultures grew Proteus mirabilis sensitive to most antibiotics. Lactic acid level was normal. Acute over chronic kidney failure with BUN and creatinine of 45 and 2.14 at admission has improved. Apparently acute kidney failure related to congestive heart failure. Blood cultures were normal. DISCHARGE MANAGEMENT: Imdur 60 mg a day, aspirin 81 mg a day, Coreg 12.5 mg b.i.d., Bumex 2 mg daily, hydralazine 100 mg every 8 hours, Levemir insulin 30 units daily. [place], [place] DISCHARGE SUMMARY NAME: JANELLE NI [facility] #: [id number] UNIT #: [id number] ROOM: 506 DOCTOR: LUIZA REEVES MD BIRTHDATE: [birth year] LUIZA REEVES MD CM:DISCHARG 1055 1230 LUIZA REEVES MD 09/28/17 1921 interface
--- NOTE | ~2017-09-24 | WRIGHTHP ---
[place], [place] PATIENT HISTORY AND PHYSICAL EXAM NAME: JANELLE NI [facility] #: [id number] UNIT #: [id number] ROOM: 506 DOCTOR: LUIZA REEVES MD BIRTHDATE: [birth year] DOS: 09/24/2017 HISTORY OF PRESENT ILLNESS: 1. The patient is a 67-year-old female with a past medical history of peripheral arterial disease. 2. Chronic systolic type CHF with 35% left ventricular ejection fraction. 3. Type 2 diabetes mellitus. 4. Chronic constipation. 5. Mixed hyperlipidemia. 6. Diabetic nephropathy with chronic kidney disease stage 3a. The patient presented to the emergency department with increasing shortness of breath for a few days and she was found to have acute over chronic congestive heart failure in the emergency department. The patient's chest x-ray showed pulmonary venous congestion and mild interstitial edema. Cardiology consult was obtained and the patient is starting to feel better after I started her on IV Bumex. No chest pain, no dizziness or fainting episode. No other GI or urinary symptoms. REVIEW OF SYSTEMS: LUNGS: Increasing shortness of breath, no wheezing. GASTROINTESTINAL: No nausea, vomiting, diarrhea or constipation. CARDIOVASCULAR SYSTEM: No chest pains or palpitations. FAMILY HISTORY: Noncontributory. SOCIAL HISTORY: Denies smoking cigarettes, alcohol and drug abuse. HOME MEDICATIONS: Imdur, aspirin, Coreg, Bumex, hydralazine. ALLERGIES: No known drug allergies. PAST MEDICAL HISTORY: She has history of coronary artery disease and coronary artery bypass grafts, three-vessel. PHYSICAL EXAMINATION: GENERAL: The patient is alert and oriented times 3, in no visible distress, generally weak. GENERAL APPEARANCE: The patient is alert and oriented x 3, in no visible distress. VITAL SIGNS: Blood pressure 149/48, heart rate 50 beats per minute, respiratory rate 18 per minute, temperature 98.0 degrees Fahrenheit. HEENT AND NECK: Extraocular movements are intact. Sclerae are anicteric. Oral mucosa is moist and clean. No obvious facial weakness. Neck is supple without any lymphadenopathy. No thyromegaly. No JVD. No carotid arterial bruits. LUNGS: Clear to auscultation. No wheezing. No rhonchi. CARDIOVASCULAR SYSTEM: Heart rate is regular in rate and rhythm. S1 and S2 normally audible. No significant murmur or any other abnormal cardiac sounds. ABDOMEN: Soft, nontender. No obvious organomegaly. Bowel sounds are present. No obvious herniation. [place], [place] PATIENT HISTORY AND PHYSICAL EXAM [facility] [id number] #: [id number] ROOM: 506 DOCTOR: LEANDRO MCNEILL,LUIZA Eucead BIRTHDATE: [birth year] EXTREMITIES: Without significant cyanosis or edema. Warm to touch. CENTRAL NERVOUS SYSTEM: Alert and oriented x 3. Cranial nerves II-XII are intact. Speech is normal. The patient is able to move all extremities. Normal muscle strength. Deep tendon reflexes are equal on both sides. Plantars were downgoing. LABORATORY DATA: BUN and creatinine 45 and 2. Normal serum electrolytes. Chest x-ray results is also as mentioned above. IMPRESSION: The patient with acute systolic type congestive heart failure. I will repeat echocardiogram and patient being diuresed with IV Bumex. Her hands parter, Dr. Godoy, is also going to follow her. Stage 4 diabetic nephropathy. BUN and creatinine to be monitored while the patient is being diuresed. Benign essential hypertension. I will continue treatment. Monitor blood pressures and treat accordingly. Mixed hyperlipidemia, to be followed and treated. Coronary artery disease of the [place] vessels with bypass grafts in 2001 without chest pains. LUIZA REEVES MD CM:HISPHYS:PATIENT HISTORY AND PHYSICAL EXAMINATION 1429 1548 LUIZA REEVES MD 09/27/17 1033 interface
--- NOTE | ~2017-09-24 | PR ---
[place], [place] PROGRESS NOTE [id number] #: [id number] ROOM: 506 DOCTOR: NATHEN DOSHI MD BIRTHDATE: [birth year] DOS: SUBJECTIVE: The patient has continued to do quite well. Denies any specific cardiac complaint. Again, she is completely flat in bed without any distress. Improved shortness of breath. No chest pain, no chest pressure, no heaviness, no tightness. OBJECTIVE: VITAL SIGNS: Blood pressure 150/54, heart rate 52, respiratory rate of 16, temperature 98.2. NECK: Good upstroke. No bruit. HEART: S1, S2 with no rub. LUNGS: Decreased air movement, but clear to auscultation. ABDOMEN: Obese, soft, nontender, present bowel sounds. EXTREMITIES: Lower extremities, mild edema. LABORATORY DATA: White count 7.2, hemoglobin 9.5, potassium 4.2, creatinine 1.6. GFR is 39, up from 29% before yesterday. ASSESSMENT AND PLAN: 1. Coronary artery disease, status post bypass surgery back in 2001 in [place]. The patient appears to be stable. There is no complaint of chest pain or angina like symptoms. 2. History of severe cardiomyopathy, ejection fraction documented on echocardiogram in August 2016. The patient is diuresing well with improved creatinine. 3. Hypertension, slightly poorly controlled. For that I will increase Imdur to 60 mg once a day. 4. Increase activity. 5. prepare to discharge home. NATHEN DOSHI MD CM:PNTRANS 04 20 NATHEN DOSHI MD 09/27/171921 interface
--- NOTE | ~2017-09-24 | PR ---
[place], [place] PROGRESS NOTE NAME: JANELLE NI [facility] #: [id number] UNIT #: [id number] ROOM: 506 DOCTOR: NATHEN DOSHI MD BIRTHDATE: [birth year] DOS: 09/26/2017 SUBJECTIVE: The patient is completely flat in bed, does not appear in distress. Denies any ongoing cardiac complaint. No chest pain, no chest pressure. She is reporting some cough, but nonproductive. No symptomatic palpitation. OBJECTIVE: VITAL SIGNS: Blood pressure 150/50, heart rate 53, respiration rate of 18, temperature 98.6. NECK: Good upstroke, no bruit. HEART: S1, S2 with no rub. LUNGS: Clear to auscultation. Slight decrease in air movement, no mina wheezing or rales. ABDOMEN: Morbidly obese, soft, nontender, present bowel sound. EXTREMITIES: Lower extremities, mild edema with faint distal pulses. LABORATORY DATA: White count 7.2, hemoglobin 9.5. Potassium 4.2, creatinine ____, BUN 1.79. ASSESSMENT AND PLAN: History of coronary artery disease, status post bypass surgery back in 2001 in [place] in a patient who has well documented severe cardiomyopathy on echocardiogram on 09/22/2016. The patient reported significant improvement in her shortness of breath. She appears to be completely flat in bed, does not appear in any distress. There is improving creatinine. Plan is to continue with current management. The patient can be discharged home from cardiology point of view with followup in outpatient with Dr. Godoy within ____ weeks. Low salt diet was emphasized. Congestive heart failure clinic if available. Consider sleep study as an outpatient. NATHEN DOSHI MD CM:PNTRANS 1010 1155 NATHEN DOSHI MD 09/28/17 1913 interface
[2017-09-24 21:30] VITALS: BP 157/52
[2017-09-24 22:07] LABS: BASO % 0.3 % (0.0-1.0); EOS # 0.2 10*3/uL (0.0-0.4); EOS % 2.2 % (1.0-4.0); HEMATOCRIT 29.6 % (37.0-47.0); HEMOGLOBIN 9.5 g/dl (12.0-16.0); LYMPH # 1.4 10*3/uL (1.3-4.4); LYMPH % 20.1 % (27.0-41.0); MEAN CELL VOLUME 88.4 fl (81.0-99.0); MEAN CORPUSCULAR HGB 28.4 pg (27.0-31.0); MEAN CORPUSCULAR HGB CONC 32.1 g/dl (33.0-37.0); MEAN PLATELET VOLUME 10.9 fl (9.6-12.3); MONO # 0.8 10*3/uL (0.1-1.0); MONO % 11.2 % (3.0-9.0); NEUT # 4.7 10*3/uL (2.3-7.9); NEUT % 66.1 % (47.0-73.0); PLATELET COUNT AUTOMATED 169 10*3/uL (130-400); RED BLOOD COUNT 3.35 10*6/uL (4.10-5.10); RED CELL DISTRI WIDTH 14.6 % (0-14.5); WHITE BLOOD COUNT 7.2 10*3/uL (4.8-10.8)
[2017-09-24 22:24] LABS: ALBUMIN 3.2 gm/dl (3.1-4.5); CREATININE 2.14 mg/dL (0.55-1.02); POTASSIUM 4.1 mmol/L (3.5-5.1); TOTAL PROTEIN 7.6 gm/dL (6.4-8.2)
[2017-09-24 22:25] LABS: TROPONIN I 0.015 ng/ml (<0.045)
[2017-09-24 22:31] VITALS: BP 180/73
[2017-09-24 22:39] LABS: ACT PARTIAL THROMBO TIME 23.4 SECONDS (20.8-31.5); INTERNATIONAL NORM RATIO 1.1 (2.0-3.5)
[2017-09-24 23:01] LABS: BILIRUBIN NEGATIVE (NEGATIVE); CLARITY TURBID (CLEAR); COLOR YELLOW (YELLOW); GLUCOSE NEGATIVE (NEGATIVE)
[2017-09-24 23:02] LABS: BLOOD TRACE-LYSED (NEGATIVE); KETONE NEGATIVE (NEGATIVE); LEUKO ESTERASE 3+ (NEGATIVE); NITRITE NEGATIVE (NEGATIVE); UROBILINOGEN 0.3 E.U./dl (0.2-1.0)
[2017-09-24 23:06] LABS: WBC TNTC wbc/hpf (0-5)
--- NOTE | 2017-09-24 23:18 | NUR ---
REPORT FROM RICHARD BECKFORD AT THIS TIME
[2017-09-24 23:27] VITALS: BP 170/59
--- NOTE | 2017-09-24 23:33 | NUR ---
A 67, admitted to 5E, under the services of Dr. LEANDRO MCNEILL,LUIZA Euceda with a diagnosis of CHF. Chief complaint is SHORTNESS OF BREATH. Patient arrived via stretcher from ER. Monitor applied. Initial assessment completed. Vital signs taken and recorded. DR. LEANDRO MCNEILL,LUIZA Euceda notified of admission to the unit. Orders received. See assessment for past medical history, medications and allergies. Patient and/or family oriented to unit. [facility] visitation policy reviewed. Clothing/patient valuable form completed. DON IQBAL
[2017-09-24] MEDS ORDERED: HYDRALAZINE HC100 MG PO (23:50)
[2017-09-24] MEDS ORDERED: BUMETANIDE2 MG PO (23:52)
[2017-09-24] MEDS ORDERED: FEROSUL325 M1 PO (23:53)
[2017-09-24] MEDS ORDERED: TYLENOL325 M2 PO (23:53)
[2017-09-24] MEDS ORDERED: VITAMIN D50000 UNIT PO (23:56)
--- NOTE | 2017-09-24 23:56 | NUR ---
PATIENT MED REC COMPLETED WITH PATIENT ALERT AND ORIENTED TO PERSON PLACE AND TIME
[2017-09-25] VITALS: BP 164/62
--- NOTE | 2017-09-25 00:10 | NUR ---
ORDERS FROM DR REEVES AT THIS TIME
[2017-09-25 04:00] VITALS: BP 127/36
--- NOTE | 2017-09-25 06:03 | NUR ---
DR EARLY'S ANSWERING SERVICE AWARE OF CONSULT
[2017-09-25 06:53] LABS: CREATININE 2.03 mg/dL (0.55-1.02); POTASSIUM 3.6 mmol/L (3.5-5.1)
[2017-09-25 08:00] VITALS: BP 138/58; BP 146/62
--- NOTE | 2017-09-25 08:00 | NUR ---
RESTING AT SIDE OF BED, EATING & TOLERATING BREAKFAST. PT DENIES C/O CHEST PAIN OR S.O.B. AT PRESENT TIME. EASY RESPIRATIONS WITH SKIN W/D. SEE SHIFT ASSESSMENT.
--- NOTE | 2017-09-25 10:25 | NUR ---
AM COREG HELD DUE TO BRADYCARDIA. HR 51 PER CM
[2017-09-25 12:00] VITALS: BP 149/48
--- NOTE | 2017-09-25 12:49 | NUR ---
DR DELAROSA IN TO SEE PT. INFORMED OF PERSISTANT BRADYCARDIA.
--- NOTE | 2017-09-25 14:09 | NUR ---
DR REEVES IN TO SEE PT.
[2017-09-25 16:00] VITALS: BP 146/48
--- NOTE | 2017-09-25 16:34 | NUR ---
DR REEVES MADE AWARE THAT ANTIHYPERTENSIVES WERE HELD TODAY & INFORMED OF BP RESULTS WELL HR. NO NEW ORDERS. STATES "WE WILL WATCH HER"
[2017-09-25 20:00] VITALS: BP 153/53
--- NOTE | 2017-09-25 20:44 | NUR ---
BG CHECK 216
[2017-09-26] VITALS: BP 134/37
[2017-09-26 06:00] VITALS: BP 150/50
--- NOTE | 2017-09-26 06:55 | NUR ---
PATIENT SITTING ON SIDE OF BED WITH NO NEEDS MADE. BED IN LOWEST POSITION, CALL LIGHT IN REACH
[2017-09-26 07:13] LABS: CREATININE 1.79 mg/dL (0.55-1.02); POTASSIUM 4.2 mmol/L (3.5-5.1)
[2017-09-26 08:00] VITALS: BP 108/60
--- NOTE | 2017-09-26 08:00 | NUR ---
LAB RESULTS AND ORDERS REVIEWED. PT IN BED RESTING, NO S AND S OF ACTUTE DISTRESS NOTED AT THIS TIME. CALL LIGHT IN REACH.
--- NOTE | 2017-09-26 09:33 | NUR ---
Solution Maker in to talk to patient. Patient states lives at HOME with HER SON. There are 0 steps in the home. Physician: DR MANCILLA Pharmacy: [facility] Home health services: NONE Patient's level of ADLs: INDEPENDENT Patient has working utilities: YES DME: [facility] DOES NOT QUALIFY FOR O2 ANYMORE PER PT Follow-up physician's appointment after d/c: PREFERS TO MAKE HER OWN APPT Does patient want to access PORTAL?: Discharge plan HOME. RUTHY VINCENT
[2017-09-26 12:00] VITALS: BP 140/58; BP 172/70
[2017-09-26 16:00] VITALS: BP 165/57
--- NOTE | 2017-09-26 19:56 | NUR ---
PATIENT RESTING IN BED WITH NO NEEDS MADE. WATCHING TV. DENIES ANY PAIN. STATES NON PRODUCTIVE COUGH AND FEELS LIKE SHE IS CATCHING A COLD. BED IN LOWEST POSITION, CALL LIGHT IN REACH
[2017-09-26 20:00] VITALS: BP 173/67
--- NOTE | 2017-09-26 20:23 | NUR ---
CALLED DR EARLY'S ANSWERING SERVICE REGARDING PATIENT'S BLOOD PRESSURE AND HEART RATE. WAITING CALL BACK
--- NOTE | 2017-09-26 20:26 | NUR ---
SPOKE WITH DR RENDON FROM CARDIOLOGY REGARDING PATIENT'S BP BEING 173/67 AND HR BEING 50. STATES TO HOLD COREG TONIGHT, BUT GIVE 50MG HYDRALAZINE INSTEAD OF THE 100.
[2017-09-27] VITALS: BP 105/55; BP 141/41
[2017-09-27 06:32] VITALS: BP 120/58
[2017-09-27 07:20] LABS: CREATININE 1.6 mg/dL (0.55-1.02)
[2017-09-27 08:00] VITALS: BP 138/59
[2017-09-27 12:00] VITALS: BP 154/64
[2017-09-27 16:00] VITALS: BP 150/54
[2017-09-27 20:00] VITALS: BP 144/52
[2017-09-28] VITALS: BP 145/52
[2017-09-28 07:02] LABS: CREATININE 1.53 mg/dL (0.55-1.02); POTASSIUM 4.1 mmol/L (3.5-5.1)
[2017-09-28 08:00] VITALS: BP 150/58
[2017-09-28] MEDS ORDERED: AUGMENTIN 875-875 MG PO (10:55)
--- NOTE | 2017-09-28 11:43 | NUR ---
PT DISCHARGED AND PICKED UP BY HER FRIEND CHAO. WHEELED OFF FLOOR VIA WHEELCHAIR. HEPLOCK AND PRACTICE ADMINISTRATOR DISCONTINUED.
== END 2017-09-28 11:38 | disposition home or self-care (01) | DRG 291 ==
LOC: ED 21:20 → EDHOLD 22:53 → 5E 22:53
PROVIDERS: Nurse Practitioner Family; ADMIT Internal Medicine
DX: I13.0 Hypertensive heart and chronic kidney disease with heart failure and stage 1 through stage 4 chronic kidney disease, or unspecified chronic kidney disease (principal); I50.43 Acute on chronic combined systolic (congestive) and diastolic (congestive) heart failure; N17.9 Acute kidney failure, unspecified; E11.22 Type 2 diabetes mellitus with diabetic chronic kidney disease; E11.51 Type 2 diabetes mellitus with diabetic peripheral angiopathy without gangrene; N39.0 Urinary tract infection, site not specified; N18.4 Chronic kidney disease, stage 4 (severe); K59.00 Constipation, unspecified; I42.9 Cardiomyopathy, unspecified; E87.5 Hyperkalemia; B96.4 Proteus (mirabilis) (morganii) as the cause of diseases classified elsewhere; E78.2 Mixed hyperlipidemia; I25.10 Atherosclerotic heart disease of native coronary artery without angina pectoris; E78.5 Hyperlipidemia, unspecified; Z79.82 Long term (current) use of aspirin; Z79.899 Other long term (current) drug therapy; Z79.84 Long term (current) use of oral hypoglycemic drugs; Z79.4 Long term (current) use of insulin; Z95.1 Presence of aortocoronary bypass graft; Z82.49 Family history of ischemic heart disease and other diseases of the circulatory system; Z83.3 Family history of diabetes mellitus; Z80.9 Family history of malignant neoplasm, unspecified; I25.2 Old myocardial infarction

== ENCOUNTER 2017-10-18 17:18 | Emergency (ER) | payer MEDICARE ==
[~2017-10-18] VITALS: Ht 162.5 cm; Wt 96.2 kg
[~2017-10-18 17:18] MED LIST changes: +AUGMENTIN 875-875 MG PO; +BUMETANIDE2 MG PO; +FEROSUL325 M1 PO; +HYDRALAZINE HC100 MG PO; +TYLENOL325 M2 PO; +VITAMIN D50000 UNIT PO
[2017-10-18 18:14] LABS: BASO % 0.3 % (0.0-1.0); EOS # 0.2 10*3/uL (0.0-0.4); EOS % 2.5 % (1.0-4.0); HEMATOCRIT 32.7 % (37.0-47.0); HEMOGLOBIN 10.6 g/dl (12.0-16.0); LYMPH # 1.4 10*3/uL (1.3-4.4); MEAN CELL VOLUME 87.2 fl (81.0-99.0); MEAN CORPUSCULAR HGB 28.3 pg (27.0-31.0); MEAN CORPUSCULAR HGB CONC 32.4 g/dl (33.0-37.0); MEAN PLATELET VOLUME 10.2 fl (9.6-12.3); MONO # 0.7 10*3/uL (0.1-1.0); MONO % 9.9 % (3.0-9.0); NEUT # 4.4 10*3/uL (2.3-7.9); NEUT % 66.2 % (47.0-73.0); PLATELET COUNT AUTOMATED 180 10*3/uL (130-400); RED BLOOD COUNT 3.75 10*6/uL (4.10-5.10); RED CELL DISTRI WIDTH 14.5 % (0-14.5); WHITE BLOOD COUNT 6.7 10*3/uL (4.8-10.8)
[2017-10-18 18:30] LABS: ALBUMIN 3.7 gm/dl (3.1-4.5); CREATININE 1.81 mg/dL (0.55-1.02); POTASSIUM 4.8 mmol/L (3.5-5.1); TOTAL PROTEIN 7.8 gm/dL (6.4-8.2)
[2017-10-18 18:50] LABS: BILIRUBIN NEGATIVE (NEGATIVE); BLOOD TRACE-INTACT (NEGATIVE); CLARITY SL CLOUDY (CLEAR); COLOR YELLOW (YELLOW); GLUCOSE NEGATIVE (NEGATIVE); KETONE NEGATIVE (NEGATIVE); LEUKO ESTERASE 3+ (NEGATIVE); NITRITE NEGATIVE (NEGATIVE); PH 7.5 (5.0-9.0); UROBILINOGEN 0.2 E.U./dl (0.2-1.0)
[2017-10-18 18:55] LABS: BACTERIA 1+; WBC 51-100 wbc/hpf (0-5)
[2017-10-18] MEDS ORDERED: ZITHROMAX250 MG PO (19:04)
[2017-10-18] MEDS ORDERED: PREDNISONE10 MG PO (19:04)
== END 2017-10-18 19:10 | disposition home or self-care (01) ==
LOC: ED 17:18
PROVIDERS: Nurse Practitioner
DX: J40 Bronchitis, not specified as acute or chronic (principal); Z95.1 Presence of aortocoronary bypass graft; Z79.4 Long term (current) use of insulin; Z79.82 Long term (current) use of aspirin; Z79.899 Other long term (current) drug therapy

== ENCOUNTER 2017-11-01 08:05 | Inpatient (IN) | payer MEDICARE ==
[~2017-11-01] VITALS: Ht 163 cm; Wt 92.2 kg
--- NOTE | ~2017-11-01 | PR ---
[place], [place] PROGRESS NOTE NAME: JANELLE IN [facility] #: [id number] UNIT #: [id number] ROOM: 526 DOCTOR: SILVIO EARLY MD BIRTHDATE: [birth year] DOS: 11/02/2017 SUBJECTIVE: The patient was seen at her bedside today 11/02/2017 for followup of her atherosclerotic heart disease, ischemic cardiomyopathy and mildly elevated troponin level. She was hospitalized on 11/01/2017 with worsening cough and dyspnea. She has a history of coronary artery disease and is status post bypass in 2001. She had a non-ST elevation [place] in January 2016 and was treated with percutaneous intervention at the [facility]. Her ejection fraction is impaired and has been as low as 35%; however, an echocardiogram done 09/26/2017 showed that her ejection fraction was about 40%. We were asked to see her because her troponin was mildly elevated at 0.137. repeat was 0.105 and then 0.139. She has not had any chest pain through this. Subsequently, her blood cultures have become positive for gram-negative bacilli, which have not yet been identified. She is being managed by the infectious disease service for this. Today, she states that she still feels "terrible," but she is feeling somewhat better from previous days. She denied any shaking chills and is starting to eat. PHYSICAL EXAMINATION: VITAL SIGNS: Today, her pulse is 69 and regular, blood pressure is 139/47. She is afebrile. She weighs 89.1 kilograms with a body mass index of 33.5. HEENT: Normocephalic and atraumatic. Extraocular muscles are intact. Sclerae are clear. Pupils are round and react to light. The oral mucosa is moist. NECK: Supple. She has no jugular distention. Carotids are full and I heard no bruits. She had no neck or supraclavicular masses. LUNGS: Respirations are unlabored. She has decreased breath sounds at the bases, but no wheezes or rales. HEART: Has a regular rhythm with a fourth heart sound, but no third heart sound. The PMI is not displaced. ABDOMEN: Soft and normally active. EXTREMITIES: Showed no edema. IMPRESSION: 1. Atherosclerotic heart disease, status post bypass. 2. Type 2 diabetes mellitus. 3. Hypertension. 4. History of non-ST elevation myocardial infarction. 5. Chronic renal insufficiency. 6. Three-vessel bypass around 2001. 7. Hospitalization on this occasion with gram-negative bacteremia. PLAN: We will continue to observe her fluid balance, but right now she does seem to be euvolemic. Her infections are being treated by the infectious disease service and her primary physicians. We will follow her intermittently. I thank Dr. Castle for asking our advice regarding her care. [place], [place] PROGRESS NOTE NAME: NIJANELLE ZEE Matti UNIT #: [id number] ROOM: 526 DOCTOR: SILVIO EARLY MD BIRTHDATE: [birth year] SILVIO EARLY MD CM:PNTRANS 1750 9 SILVIO EARLY MD 11/03/17129 interface
--- NOTE | ~2017-11-01 | PR ---
[place], [place] PROGRESS NOTE NAME: JANELLE NI UNIT #: [id number] ROOM: 526 DOCTOR: LUIZA REEVES MD BIRTHDATE: [birth year] DOS: 11/03/2017 SUBJECTIVE: The patient is starting to breathe better. OBJECTIVE: GENERAL APPEARANCE: Generalized weakness and some decreased breath sounds all over. VITAL SIGNS: Blood pressure 150/53, heart rate 52 beats and breathing 16 times a minute, temperature 98 degrees Fahrenheit. HEENT AND NECK: Exam within normal limits. CARDIOVASCULAR SYSTEM: Heart rate is regular in rate and rhythm. S1 and S2 normally audible. LUNGS: Clear to auscultation. ABDOMEN: Soft, nontender. No obvious organomegaly. Bowel sounds are present. EXTREMITIES: Without significant cyanosis or edema. IMPRESSION: 1. The patient with elevated troponin levels being followed by Cardiology. 2. Left lower lobe pneumonia and atelectasis, being treated with antibiotics and incentive spirometry followed by copy room technician, Dr. Odom. 3. Positive blood cultures growing gram-negative bacilli only in 1 bottle with improved leukocytosis with present treatment. We will wait for final culture results. Blood culture results are growing gram-negative bacilli and will be evaluated by Infectious Disease specialist. 4. Generalized weakness and adult failure to thrive. The patient is getting physical therapy. 5. Chronic kidney disease stage 3A with apparently acute over chronic kidney disease apparently related to present infection and thickness, improving with hydration. 6. Major depression, recurrent, mild, being treated with citalopram and controlled. 7. Chronic constipation, treated and controlled with MiraLax. 8. Chronic systolic type congestive heart failure. The patient remains on Bumex. 9. Benign essential hypertension with controlled blood pressures with treatment. 10. Mixed hyperlipidemia, being treated with Lipitor. [place], [place] PROGRESS NOTE NAME: JANELLE NI UNIT #: [id number] ROOM: 526 DOCTOR: LUIZA REEVES MD BIRTHDATE: [birth year] LUIZA REEVES MD CM:PNTRANS 1714 0010 LUIZA REEVES MD 11/04/17 0010 interface
--- NOTE | ~2017-11-01 | PR ---
[place], [place] PROGRESS NOTE NAME: JANELLE NI UNIT #: [id number] ROOM: 526 DOCTOR: PATRICIA MCNEILL,SEVEN Walton BIRTHDATE: [birth year] DOS: 11/06/2017 ADDENDUM I agree with the above plans as described. We will follow the patient up clinically and adjust accordingly. SEVEN GOMEZ MD CM:PNTRANS 0727 0859 SEVEN GOMEZ MD 11/07/17 1426 interface
--- NOTE | ~2017-11-01 | PR ---
[place], [place] PROGRESS NOTE [id number] #: [id number] ROOM: 526 DOCTOR: VITALY HUFF MD,NYLA BIRTHDATE: [birth year] DOS: 11/05/2017 SUBJECTIVE: She has been still noted with coughing, although the frequent intensity has been ____. OBJECTIVE: VITAL SIGNS: The temperature patient was noted as normal, respiratory rate 18, heart rate 62, blood pressure 151/58 this morning. The pulse oxygen saturation of the patient recorded on room air 95% saturation. HEENT: No acute change. NECK: Supple. CARDIOVASCULAR: S1, S2 is audible. LUNGS: The patient was noted without any wheezing or crackles at the present time. ABDOMEN: Soft, nontender. LABORATORY DATA: Urinalysis of the patient that was done yesterday was noted with 3+ leukocyte esterase. The culture was pending. The blood culture from the 3rd of this month showed no bacterial growths. IMPRESSION: 1. Bacteremia with Proteus mirabilis. 2. Urinary tract infection with acute superimposed bronchitis that had been gradually improving. PLAN OF TREATMENT: No changes in the plan of management at this time. Continue the patient's current other therapy, plan of care as previously. Usual care, other supportive plan of management and care. NYLA HAIDER MD CM:PNTRANS 1407 4 NYLA HUFF MD 11/06/17 011 interface
--- NOTE | ~2017-11-01 | WRIGHTHP ---
[place], [place] PATIENT HISTORY AND PHYSICAL EXAM NAME: JANELLE NI [facility] #: [id number] UNIT #: [id number] ROOM: 526 DOCTOR: LUIZA REEVES MD BIRTHDATE: [birth year] DOS: 11/01/2017 HISTORY OF PRESENT ILLNESS: The patient is a 67-year-old female with a past medical history of: 1. Chronic kidney disease stage 3a. 2. Mixed hyperlipidemia. 3. Benign essential hypertension. 4. Coronary artery disease of [place] vessels with bypass grafts in 2001. 5. Chronic, systolic type congestive heart failure. 6. Type 2 diabetes mellitus. 7. Moderate obesity. The patient presented to the Emergency Department with increasing shortness of breath, progressively getting worse for about 2 weeks along with cough and chest congestion. The patient was found to have left lower lobe pneumonia and atelectasis on the chest x-ray in the Emergency Department and she was recommended for admission and further management. After admission, the patient still has some cough and chest congestion. No chest pain, no dizziness or fainting episodes. REVIEW OF SYSTEMS: LUNGS: Increasing shortness of breath and cough. GASTROINTESTINAL: No nausea, vomiting, diarrhea, constipation. CARDIOVASCULAR: No chest pains or palpitations. FAMILY HISTORY: Noncontributory. HOME MEDICATIONS: MiraLax, citalopram, Bumex, aspirin, glipizide, hydralazine, Coreg, Lipitor, iron. ALLERGIES: No known drug allergies. PHYSICAL EXAMINATION: GENERAL: Alert and oriented x 3. Generalized weakness. HEENT AND NECK: Extraocular movements are intact. Sclerae are anicteric. Oral mucosa is moist and clean. No obvious facial weakness. Neck is supple without any lymphadenopathy. No thyromegaly. No JVD. No carotid arterial bruits. LUNGS: No wheezing. No rhonchi. Somewhat decreased breath sounds on lung auscultation. CARDIOVASCULAR SYSTEM: Heart rate is regular in rate and rhythm. S1 and S2 normally audible. No significant murmur or any other abnormal cardiac sounds. ABDOMEN: Soft, nontender. No obvious organomegaly. Bowel sounds are present. No obvious herniation. Moderate obesity. EXTREMITIES: Without significant cyanosis or edema. Warm to touch. CENTRAL NERVOUS SYSTEM: Alert and oriented x 3. Cranial nerves II-XII are intact. Speech is normal. The patient is able to move all extremities. Normal muscle strength. Deep tendon reflexes are equal on both sides. Plantars were downgoing. LABORATORY DATA: BUN and creatinine are 65 and 2.5. Otherwise, normal electrolytes. Blood sugar is 223. Blood cultures are starting to grow [place], [place] PATIENT HISTORY AND PHYSICAL EXAM NAME: JANELLE NI UNIT #: [id number] ROOM: 526 DOCTOR: LUIZA REEVES MD BIRTHDATE: [birth year] gram-negative bacilli. White cell count elevated to 17,000, improved to 11.7 thousand with treatment and cardiac enzymes elevated to 0.13. IMPRESSION: 1. The patient's elevation of troponin level for which Cardiology have been consulted for management. 2. The patient's left lower lobe pneumonia and atelectasis to be treated with antibiotics, incentive spirometry and I am getting a pulmonary consult. The patient on DuoNebs and oxygen as needed. 3. Positive blood cultures growing gram-negative bacilli from blood cultures to be followed by Infectious Disease specialists. 4. Diabetes mellitus. Blood sugars were monitored and treated ranging between 89 to 219. 5. Generalized weakness. The patient worked with physical therapy. 6. Chronic kidney disease stage 3a. Apparently, there is some worsening of patient's creatinine and renal function, so I will reduce her dose of Bumex. 7. Major depression, recurrent, mild, treated and controlled with citalopram, which has been continued. 8. Chronic constipation, treated with MiraLax. 9. Chronic systolic type congestive heart failure, treated and controlled with Bumex, dose has been decreased. The patient is also on hydralazine. 10. Benign essential hypertension with controlled blood pressures with treatment. 11. Mixed hyperlipidemia. The patient is on Lipitor, being treated. LUIZA REEVES MD CM:HISPHYS:PATIENT HISTORY AND PHYSICAL EXAMINATION [id number] LUIZA REEVES MD 11/02/17 1231 interface
--- NOTE | ~2017-11-01 | PR ---
[place], [place] PROGRESS NOTE NAME: JANELLE NI UNIT #: [id number] ROOM: 526 DOCTOR: PATRICIA MCNEILL,SEVEN Walton BIRTHDATE: [birth year] DOS: 11/05/2017 ADDENDUM After reviewing the chart, labs I agree with the above plans. We will continue to follow the patient and adjust accordingly. Thank you for allowing me to see the patient. SEVEN GOMEZ MD CM:PNTRANS [id number] SEVEN GOMEZ MD 11/07/17 0736 interface
--- NOTE | ~2017-11-01 | PR ---
[place], [place] PROGRESS NOTE NAME: JANELLE NI [facility] #: [id number] UNIT #: [id number] ROOM: 526 DOCTOR: ISAURA MATAJANUARY BIRTHDATE: [birth year] DOS: 11/05/2017 SUBJECTIVE: The patient is being followed for likely complicated UTI. She received antibiotics prior to her urine culture finally being obtained on the . Her admitting blood cultures grew Proteus. She has a history of recurrent UTIs, likely due to a prolapsed bladder. No history of renal calculi. Her antibiotics were narrowed to Cipro yesterday per Dr. Diehl. The patient is alert and oriented, feeling much better. Denies any fevers or chills. No nausea, vomiting or diarrhea. She did have some nausea yesterday that improved. No rash or itch. No cough or shortness of breath. No back pain. She did have back pain on admission that has since resolved. OBJECTIVE: VITAL SIGNS: Temp 97.8, pulse 50, respirations 20, BP 150/50 and blood cultures as above. LABORATORY DATA: No other new labs today. CURRENT MEDICATIONS: Include Tums, Cipro, Bumex, Mucinex, MiraLax, Celexa, Rocaltrol, aspirin, Glucotrol, Levemir, Apresoline, Coreg, Lipitor, Feosol and Tylenol. PHYSICAL EXAMINATION: Alert and oriented 67-year-old female, in no acute distress. HEAD, EYES, EARS, NOSE AND THROAT: Normocephalic, no thrush. LUNGS: Clear to auscultation bilaterally. Respirations even and unlabored. HEART: Regular rhythm. No murmur appreciated. ABDOMEN: Soft, nontender. EXTREMITIES: Trace edema bilateral lower extremities. She has no CVA tenderness. SKIN: Warm, dry and pale. Free of rashes. ASSESSMENT AND PLAN: Likely complicated urinary tract infection with Proteus bacteremia. He is currently on Cipro. I discussed the case with Dr. Castle. She could be discharged from an Infectious Diseases standpoint with Cipro for a total of 14 days from antibiotic inception. JANUARY ADOLFO DELAROSA [place], [place] PROGRESS NOTE NAME: JANELLE NI [facility] UNIT #: [id number] ROOM: 526 DOCTOR: ISAURA MATA,JANUARY BIRTHDATE: [birth year] SEVEN GOMEZ MD CM:MADISON [id number] FEBRUARY ISAURA MATA 11/05/17 2151 interface
--- NOTE | ~2017-11-01 | DS ---
[place], [place] DISCHARGE SUMMARY NAME: JANELLE NI UNIT #: [id number] ROOM: 526 DOCTOR: LUIZA REEVES MD BIRTHDATE: [birth year] DOS: 11/06/2017 DISCHARGE DIAGNOSES: 1. Probable urinary tract infection with Proteus mirabilis and bacteremia, treated appropriately with antibiotics. 2. Type 2 diabetes mellitus. 3. Adult failure to thrive. 4. Chronic kidney disease stage 3A with acute over chronic kidney failure, improved with hydration. 5. Major depression, recurrent, mild. 6. Benign essential hypertension. 7. Chronic systolic type congestive heart failure, compensated. 8. Mixed hyperlipidemia. 9. Mildly elevated troponin I levels evaluated by Cardiology and recommended conservative treatment. 10. Coronary artery disease of [place] vessel with bypass grafts in 2001. HOSPITAL COURSE: The patient was admitted when she presented with increased shortness of breath and she was found to have left lower lobe atelectasis and pneumonia. The patient was treated with antibiotics and was seen by Dr. Odom and cleared for discharge after achieving maximal benefit from this admission. The patient was treated with DuoNebs, oxygen, antibiotics and she is breathing normally now. Positive blood cultures for Proteus mirabilis bacteremia, apparently probably related to urinary tract infection, treated appropriately, also evaluated by Infectious Disease specialist who followed her. Type 2 diabetes mellitus with well controlled blood sugars. Obesity, adult failure to thrive and generalized weakness. The patient worked with physical therapy and is ambulating well. Chronic kidney disease stage 3 with acute over chronic kidney failure. I reduced her dose of Bumex and kidneys have recovered with improvement of her creatinine to 1.8 as compared to 2.43 at admission. Benign essential hypertension with controlled blood pressure. Mixed hyperlipidemia, controlled with Lipitor. Mildly elevated troponin I levels evaluated by Cardiology and recommended conservative treatment. Adult generalized failure to thrive. The patient worked with physical therapy and she is ambulating well. LABORATORY DATA: As mentioned above. DISCHARGE MANAGEMENT: Bumex 1 mg daily, dose reduced; MiraLax 17 grams daily; [place], [place] DISCHARGE SUMMARY NAME: JANELLE NI UNIT #: [id number] ROOM: 526 DOCTOR: LUIZA REEVES MD BIRTHDATE: [birth year] citalopram 20 mg daily; calcitriol 0.25 mcg daily; aspirin 81 mg a day; glipizide 10 mg daily; Levemir insulin 45 units daily; hydralazine 100 mg every 8 hours; Coreg 6.25 mg every 12 hours; Lipitor 20 mg a day; ferrous sulfate 325 mg b.i.d.; ciprofloxacin 500 mg b.i.d. for 5 more days. LUIZA REEVES MD CM:JERMAY [phone] LUIZA REEVES MD 11/06/172208 interface
--- NOTE | ~2017-11-01 | PR ---
[place], [place] PROGRESS NOTE NAME: JANELLE NI UNIT #: [id number] ROOM: 526 DOCTOR: NYLA PLEITEZ MD BIRTHDATE: [birth year] DOS: 11/04/2017 SUBJECTIVE: She has reported reduction of the shortness of breath and other symptoms. The cough has been noted at times with sputum expectoration. Denies symptoms of chest pain or abdominal pain. The blood culture has been done and was noted positive, blood culture taken on 11/01/2017, as Proteus mirabilis isolation. It was noted as pansensitive organism. OBJECTIVE: VITAL SIGNS: Vital signs, which has been recorded for the patient, shows a normal temperature of 99.4 degree Fahrenheit, respiration 17-18, heart rate 51-52, blood pressure 152/46-139/41. Pulse oxygen saturation on room air 97% saturation. HEENT: No acute change. NECK: Supple. CARDIOVASCULAR: S1, S2 audible. LUNGS: Without any wheeze or crackles. ABDOMEN: Soft, nontender, moderate obesity, bowel sounds present. LABORATORY DATA: CBC: Mild anemia, normal WBC count and platelet count. BMP of the patient: BUN 55, creatinine 1.84. Remaining electrolytes were normal. IMPRESSION: The patient noted with reduced symptoms of shortness of breath. The patient with cough and acute bronchitis and acute gram-negative bacilli bacteremia with possible from urinary tract infection as the previous urine culture was noted positive on 10/18/2017 for Proteus mirabilis as well. Similar organism which was noted in current blood cultures would be the source. PLAN OF TREATMENT: Continue symptomatic management of cough and bronchitis as well. Monitor kidney function of the patient closely as well. Consider obtaining a CT scan of the abdomen and pelvis for this patient to exclude any GI focus for this patient or the urogenital focus for this patient for the bacteremia. [place], [place] PROGRESS NOTE NAME: JANELLE NI UNIT #: [id number] ROOM: 526 DOCTOR: NYLA PLEITEZ MD BIRTHDATE: [birth year] NYLA HAIDER MD CM:PNTRANS [phone] NYLA HUFF MD 11/05/17 0236 interface
--- NOTE | ~2017-11-01 | CON ---
[place], [place] REPORT OF CONSULTATION NAME: JANELLE NI [facility] #: [id number] UNIT #: [id number] ROOM: 526 DOCTOR: NYLA PLEITEZ MD BIRTHDATE: [birth year] DOS: 11/03/2017 CONSULTATION REQUESTED BY: Dr. Castle. REASON FOR CONSULTATION: Assess the patient for acute pneumonia. HISTORY OF PRESENT ILLNESS: This is a 67-year-old white female patient who has been admitted under the care of Dr. Castle on 11/01/2017. The patient reported having symptoms of progressive increased shortness of breath, which has been ongoing for about a month or so. She was also noted with excessive chest congestion and coughing without any sputum expectoration. The patient denies symptoms of wheezing or chest pain. The cough is described to be nonproductive, moderate in severity. Denies symptoms of hemoptysis or chest tightness. The patient has been currently admitted to the hospital for possibility of acute pneumonia management. She stated no change in respiratory symptoms since hospitalization on 11/01/2017. The cough remains nonproductive, moderate shortness of breath occurs with exertion. REVIEW OF SYSTEMS: CONSTITUTIONAL: Fatigue and tiredness noted. Absence of fever or chills. Denies abnormal weight loss history. EYES: Denies burning, redness, dryness or redness. EAR, NOSE, AND THROAT: Denies sore throat, hoarseness, otalgia, postnasal drainage or epistaxis. CARDIOVASCULAR: Denies angina pain, palpitation, edema or pain of lower extremity. GASTROINTESTINAL: Denies dysphagia, nausea, vomiting, diarrhea, abdominal pain, hematemesis, melena, or hematochezia. GENITOURINARY: No dysuria, suprapubic pain, or hematuria. MUSCULOSKELETAL: No acute joint pain, redness, or tenderness. SKIN: Denies lesions, rashes or bruising. CENTRAL NERVOUS SYSTEM: Denies dizziness, headache, diplopia, syncopal episodes, or tingling sensations. Remaining systems were reviewed with the patient, they were noted all negative. PAST MEDICAL HISTORY: Known with history of: 1. Coronary artery disease. 2. Benign essential hypertension. 3. Mixed hyperlipidemia. 4. Chronic kidney disease stage 3 was reported. 5. History of congestive heart failure with systolic dysfunction. 6. Type 2 diabetes mellitus. 7. Moderate obesity reported as well. SOCIAL HISTORY: The patient stated that she lives at home, , nonsmoker lifetime. They were no history of occupation related to pulmonary exposure. Denies history of alcohol use or any illicit drug use. She has 3 children. FAMILY MEDICAL HISTORY: Noncontributory to her illness. [place], [place] REPORT OF CONSULTATION NAME: JANELLE NI UNIT #: [id number] ROOM: 526 DOCTOR: NYLA PLEITEZ MD BIRTHDATE: [birth year] HOME MEDICATIONS: Noted use of MiraLax, citalopram, Bumex, glipizide, hydralazine, Coreg, Lipitor, and iron. DRUG ALLERGIES: Reported as no known drug allergies. PHYSICAL EXAMINATION: GENERAL: A 67-year-old female who is currently noted awake and alert without any acute distress at the present time of assessment. The patient's height recorded by the nursing staff on admission was 5 feet 4 inches, weight of 196 pounds, BMI of 33.5. VITAL SIGNS: Temperature 100.4 degree Fahrenheit noted for the patient on admission, noted afebrile, respiratory rate 18-19, heart rate 52-69, and blood pressure 139/47-168/60. Her pulse oxygen saturation on room air was 95-97% saturation recorded at rest. HEENT: Moderate obesity. Head was atraumatic. Eye nonicterus. Oral mucosa was dry. NECK: Supple. CARDIOVASCULAR: S1, S2 is audible. LUNGS: The patient was noted with moderate reduction of breath sounds bilaterally. There was no wheezing or crackles heard. ABDOMEN: Soft. Moderate obesity. Bowel sounds are present. EXTREMITIES: Noted without edema, clubbing or cyanosis. CENTRAL NERVOUS SYSTEM: The patient was noted without any focal neurologic deficit. Cranial nerves 2-12 intact. No focal deficit. SKIN: No lesions or rashes. MUSCULOSKELETAL: Does not show any acute deformities. LABORATORY DATA: CBC of the patient on 11/01/2017, WBC count 16.9, remaining CBC was normal. Differential 85% neutrophils. CMP for the patient on 11/01/2017, BUN 63, creatinine 2.43, glucose 365. Sodium 130. Troponin minimally elevated at 0.137. Lactic acid 1.2 on admission on 11/01/2017. The troponin second 0.105, minimally still elevated. The third set was 0.135 troponin noted on 11/02/2017. CBC on 11/02/2017 WBC count 11.7, hemoglobin 11.8, hematocrit 35.0, normal platelet count. BMP of patient of 11/02/2017, BUN 65, creatinine 2.51, glucose 223, sodium 131. Blood cultures for the patient noted gram-negative bacilli for this patient on 11/01/2017 in the one set which was taken in the Emergency Room. CBC this morning; WBC count 10.9, hemoglobin 11.6, hematocrit 34.9, platelet count 157,000. The BMP of the patient; BUN 62, creatinine 2.30, glucose 116. Sodium 135, potassium 3.4. The second set of blood culture taken on 11/01/2017, the patient was noted without any bacterial growth. Two additional culture of the blood was taken for this patient that was so far not reported. The urine culture previously for the patient on 10/18/2017 was noted with isolation of Proteus mirabilis. The review of the radiology data for this patient was personally performed for this admission. The chest x-ray shows increased pulmonary venous congestion marking noted without any gross area of pulmonary infiltration. CT scan of the chest for the patient was done without contrast yesterday that was personally reviewed shows small linear atelectasis in the left lingula. The remaining lung was noted clear of any abnormal pulmonary infiltration or any evidence of pleural fluid. The [place], [place] REPORT OF CONSULTATION NAME: JANELLE NI UNIT #: [id number] ROOM: 526 DOCTOR: VITALY HUFF MD,NYLA BIRTHDATE: [birth year] lymphadenopathy certainly cannot be clearly delineated for this patient because of lack of IV contrast. However, no gross visible lymphadenopathy was visible. IMPRESSION: 1. The patient who has been currently admitted to the hospital noted with symptoms of ongoing shortness of breath as well as cough with suspected diagnosis of acute bronchitis. Linear atelectasis noted in the left lingula with questionable pneumonia. 2. Source of the gram-negative bacilli bacteremia was unclear, may be related to urinary tract could be very likely, as the previous culture was noted abnormal at that time in 09/2017 assessment. 3. The patient with acute kidney injury with chronic kidney disease mostly related to current infection would be considered as well. The patient does not have any passive tobacco user nor respiratory problems as well. She does have a past history of congestive heart failure, systolic dysfunction, but does not show any active congestive heart failure at the present time. PLAN OF MANAGEMENT: Symptomatic management of current respiratory symptom will be continued. Continue antibiotic coverage for gram-negative infection. Monitor all the culture results. The patient is currently receiving the IV Zosyn. The patient adjusted to kidney functions as well. I have ordered the urine culture to be repeated as well to assess the source of infection. If the urine culture is noted negative, recommend the patient GI and the Urogenital assessment with CT scan of the abdomen and pelvis as well to rule out any abscess or other abnormality explaining the gram-negative bacteremia. Other supportive therapy, plan of management and care. Additional treatment changes will be made for the patient based on the progression of the illness. Thanks for allowing me to participate in the care of this patient. NYLA HAIDER MD CM:CONSTR:REPORT OF CONSULTATION 1521 11/03/17 1505 interface
--- NOTE | ~2017-11-01 | PR ---
[place], [place] PROGRESS NOTE NAME: JANELLE NI UNIT #: [id number] ROOM: 526 DOCTOR: ISAURA MATA BIRTHDATE: [birth year] DOS: SUBJECTIVE: The patient is a 67-year-old female being followed for Proteus bacteremia, likely due to a complicated UTI. Her urine culture was not done at the time of her admission, it was not done for 2 days. Therefore, the urine culture was negative. Her repeat blood cultures are negative. She is alert and oriented, feeling much better. Denies any fevers, chills, nausea, vomiting or diarrhea. No rash or itch. No cough or shortness of breath. No fevers or shaking chills. LABORATORY DATA: No labs done today. CURRENT MEDICATIONS: Include Tums, Cipro, Bumex, Mucinex, MiraLax, Celexa, Rocaltrol, aspirin, Glucotrol, Levemir, Apresoline, Coreg, Lipitor, Feosol, and Tylenol. PHYSICAL EXAMINATION: VITAL SIGNS: Show temperature 98.1, pulse 75, respirations 18, BP 145/50. GENERAL: She is alert and oriented 67-year-old female in no acute distress. HEENT: Normocephalic, no thrush. LUNGS: Clear to auscultation bilaterally. Respirations even and unlabored. HEART: Regular rhythm. No murmur appreciated. ABDOMEN: Soft, nontender. EXTREMITIES: No edema. SKIN: Warm, dry, free of rashes. ASSESSMENT: Proteus bacteremia, likely due to complicated urinary tract infection. She does get recurrent urinary tract infections due to prolapsed bladder. PLAN: At this time, she should continue the Cipro, she can be discharged with a total of 14 days of antibiotics. Case discussed with Dr. Seven Gomez. JANUARY ADOLFO DELAROSA [place], [place] PROGRESS NOTE NAME: JANELLE NI UNIT #: [id number] ROOM: 526 DOCTOR: ISAURA MATAJANUARY BIRTHDATE: [birth year] SEVEN GOMEZ MD CM:MADISON [phone] ISAURA MD SENIOR RESEARCH SCIENTIST 11/06/171833 interface
--- NOTE | ~2017-11-01 | PR ---
[place], [place] PROGRESS NOTE [id number] UN[facility] #: [id number] ROOM: 526 DOCTOR: VITALY HUFF MD,NYLA BIRTHDATE: [birth year] DOS: 11/06/2017 SUBJECTIVE: She has been noted with significant improvement. The cough, which has been noted minimal at this time. There were no sputum expectoration. Denies chest pain. No general weakness. OBJECTIVE: VITAL SIGNS: For the patient which are recorded, shows normal temperature, respiratory rate 16, heart rate 50, blood pressure 146/80. Pulse oxygen saturation recorded on room air 96% to 97% saturation. HEENT: No acute change. NECK: Supple. CARDIOVASCULAR: S1, S2 audible. LUNGS: Clear to auscultation bilaterally. ABDOMEN: Soft, nontender. EXTREMITIES: Without any acute edema. IMPRESSION: The patient who has been currently noted with findings of acute bronchitis. The patient has the urinary tract infection, resolving. Follow up urine culture that was done. The patient this admission initially no bacterial growth and resolution of bacteremia with Proteus. Plan of management from the pulmonary standpoint, the patient certainly could be discharged if noted medically stable for other medical illnesses. NYLA HAIDER MD CM:PNTRANS 1814 NYLA HUFF MD 11/07/172 interface
--- NOTE | ~2017-11-01 | PR ---
[place], [place] PROGRESS NOTE [id number] UNIT #: [id number] ROOM: 526 DOCTOR: LUIZA REEVES MD BIRTHDATE: [birth year] DOS: 11/05/2017 SUBJECTIVE: The patient continues to breathe better. OBJECTIVE: GENERAL APPEARANCE: The patient is alert and oriented x 3, in no visible distress except for generalized weakness. VITAL SIGNS: Blood pressure 150/50, heart rate of 50 beats per minute, breathing 20 times a minute, temperature 98 degrees Fahrenheit. HEENT AND NECK: Exam within normal limits. CARDIOVASCULAR SYSTEM: Heart rate is regular in rate and rhythm. S1 and S2 normally audible. LUNGS: Clear to auscultation. ABDOMEN: Soft, nontender. No obvious organomegaly. Bowel sounds are present. Moderate obesity. EXTREMITIES: Without significant cyanosis or edema. IMPRESSION: 1. Type 2 diabetes mellitus. Blood sugars being monitored and treated. 2. One positive and three negative blood cultures. One positive for Proteus mirabilis, apparently bacteremia. 3. Adult generalized failure to thrive. The patient worked with physical therapy. 4. Chronic kidney disease stage 3A with acute over chronic kidney failure, treated with hydration with intravenous fluids. 5. Major depression, recurrent, mild, treated with citalopram, controlled. 6. Chronic systolic type congestive heart failure, compensated. 7. Benign essential hypertension. Blood pressure being monitored and controlled. 8. Mixed hyperlipidemia, treated with Lipitor. 9. Mildly elevated troponin I levels. Recommended conservative treatment by Cardiology. LUIZA REEVES MD CM:PNTRANS [phone] LUIZA REEVES MD 11/06/17 0358 interface
--- NOTE | ~2017-11-01 | PR ---
[place], [place] PROGRESS NOTE NAME: JANELLE NI UNIT #: [id number] ROOM: 526 DOCTOR: LUIZA REEVES MD BIRTHDATE: [birth year] DOS: 11/04/2017 SUBJECTIVE: Patient overall improving, but right now feeling a little sick because her blood sugar was found to be low. OBJECTIVE: VITAL SIGNS: Blood pressure 139/41, heart rate of 52 beats, breathing 17 times per minute, temperature of 98 degrees Fahrenheit. GENERAL APPEARANCE: The patient is alert and oriented x 3, in no visible distress. Moderate obesity. HEENT AND NECK: Exam within normal limits. CARDIOVASCULAR SYSTEM: Heart rate is regular in rate and rhythm. S1 and S2 normally audible. LUNGS: Somewhat decreased breath sounds. ABDOMEN: Soft, nontender. No obvious organomegaly. Bowel sounds are present. EXTREMITIES: Without significant cyanosis or edema. IMPRESSION: 1. Type 2 diabetes mellitus with some hypoglycemia, one episode, blood sugars to be monitored and treated accordingly. Patient says she has been eating less at the hospital. Otherwise, blood sugars are going as high as 280. She is a brittle diabetic. 2. Mildly elevated troponin I levels, evaluated by Dr. Garcia, the metallurgical or materials technician, only medical management was recommended. 3. Mixed hyperlipidemia, already being treated with Lipitor. 4. Benign essential hypertension. Blood pressure is being monitored and treated and controlled. 5. Chronic systolic type congestive heart failure, compensated. 6. Major depression, recurrent, mild, being treated with citalopram. 7. Chronic kidney disease stage 3A with acute over chronic kidney failure, improved with hydration. 8. Adult failure to thrive, generalized weakness and failure to thrive. Patient working with Physical Therapy. 9. Positive blood cultures with Proteus mirabilis sensitive to all antibiotics. Patient being treated and also followed by Infectious Disease specialist. Patient was considered to have bacteremia by Infectious Disease specialist and is being treated with IV Zosyn. [place], [place] PROGRESS NOTE NAME: JANELLE NI UNIT #: [id number] ROOM: 526 DOCTOR: LUIZA REEVES MD BIRTHDATE: [birth year] LUIZA REEVES MD CM:MADISON [id number] LUIZA REEVES MD 11/05/17 0029 interface
[~2017-11-01 08:05] MED LIST changes: +LANTUS SOL100 UNIT/1 SC; -LANTUS100 U/ML SC; +PREDNISONE10 MG PO; +ZITHROMAX250 MG PO
[2017-11-01 08:06] VITALS: BP 141/69
[2017-11-01 08:28] LABS: BASO % 0.1 % (0.0-1.0); EOS % 0.2 % (1.0-4.0); HEMOGLOBIN 13.1 g/dl (12.0-16.0); LYMPH # 1.1 10*3/uL (1.3-4.4); LYMPH % 6.4 % (27.0-41.0); MEAN CELL VOLUME 84.6 fl (81.0-99.0); MEAN CORPUSCULAR HGB 28.4 pg (27.0-31.0); MEAN CORPUSCULAR HGB CONC 33.6 g/dl (33.0-37.0); MEAN PLATELET VOLUME 11.6 fl (9.6-12.3); MONO # 1.2 10*3/uL (0.1-1.0); NEUT # 14.5 10*3/uL (2.3-7.9); NEUT % 85.8 % (47.0-73.0); PLATELET COUNT AUTOMATED 205 10*3/uL (130-400); RED BLOOD COUNT 4.61 10*6/uL (4.10-5.10); WHITE BLOOD COUNT 16.9 10*3/uL (4.8-10.8)
[2017-11-01 08:45] LABS: ALBUMIN 3.2 gm/dl (3.1-4.5); CREATININE 2.43 mg/dL (0.55-1.02); POTASSIUM 3.8 mmol/L (3.5-5.1); TOTAL PROTEIN 7.4 gm/dL (6.4-8.2)
[2017-11-01 08:58] LABS: TROPONIN I 0.137 ng/ml (<0.045)
[2017-11-01 11:40] VITALS: BP 149/58
[2017-11-01] MEDS ORDERED: COREG6.25 MG PO (12:38)
[2017-11-01] MEDS ORDERED: Rocaltrol0.25 MCG PO (12:38)
[2017-11-01 16:00] VITALS: BP 113/42
[2017-11-01 20:00] VITALS: BP 100/55
[2017-11-02] VITALS: BP 110/50
[2017-11-02 04:00] VITALS: BP 96/50
[2017-11-02 06:42] LABS: BASO % 0.1 % (0.0-1.0); EOS # 0.1 10*3/uL (0.0-0.4); EOS % 0.5 % (1.0-4.0); HEMOGLOBIN 11.8 g/dl (12.0-16.0); LYMPH % 8.4 % (27.0-41.0); MEAN CELL VOLUME 85.4 fl (81.0-99.0); MEAN CORPUSCULAR HGB 28.8 pg (27.0-31.0); MEAN CORPUSCULAR HGB CONC 33.7 g/dl (33.0-37.0); MEAN PLATELET VOLUME 11.7 fl (9.6-12.3); MONO # 0.8 10*3/uL (0.1-1.0); MONO % 6.9 % (3.0-9.0); NEUT # 9.8 10*3/uL (2.3-7.9); NEUT % 83.7 % (47.0-73.0); PLATELET COUNT AUTOMATED 164 10*3/uL (130-400); RED CELL DISTRI WIDTH 14.2 % (0-14.5); WHITE BLOOD COUNT 11.7 10*3/uL (4.8-10.8)
[2017-11-02 07:08] LABS: CREATININE 2.51 mg/dL (0.55-1.02)
[2017-11-02 08:00] VITALS: BP 139/47
[2017-11-02 16:00] VITALS: BP 160/78
[2017-11-02 20:00] VITALS: BP 119/60
[2017-11-03] VITALS: BP 134/59
[2017-11-03 06:35] LABS: BASO % 0.1 % (0.0-1.0); EOS # 0.3 10*3/uL (0.0-0.4); EOS % 2.7 % (1.0-4.0); HEMATOCRIT 34.9 % (37.0-47.0); HEMOGLOBIN 11.6 g/dl (12.0-16.0); LYMPH # 1.1 10*3/uL (1.3-4.4); LYMPH % 9.8 % (27.0-41.0); MEAN CELL VOLUME 86.2 fl (81.0-99.0); MEAN CORPUSCULAR HGB 28.6 pg (27.0-31.0); MEAN CORPUSCULAR HGB CONC 33.2 g/dl (33.0-37.0); MEAN PLATELET VOLUME 11.6 fl (9.6-12.3); MONO % 9.4 % (3.0-9.0); NEUT # 8.4 10*3/uL (2.3-7.9); NEUT % 77.5 % (47.0-73.0); PLATELET COUNT AUTOMATED 157 10*3/uL (130-400); RED BLOOD COUNT 4.05 10*6/uL (4.10-5.10); RED CELL DISTRI WIDTH 14.2 % (0-14.5); WHITE BLOOD COUNT 10.9 10*3/uL (4.8-10.8)
[2017-11-03 07:06] LABS: CREATININE 2.3 mg/dL (0.55-1.02); POTASSIUM 3.4 mmol/L (3.5-5.1)
[2017-11-03 08:00] VITALS: BP 168/60
[2017-11-03 12:00] VITALS: BP 150/53
[2017-11-03 16:00] VITALS: BP 150/54
[2017-11-03 20:00] VITALS: BP 152/50
[2017-11-04] VITALS: BP 143/78
[2017-11-04 06:49] LABS: BASO % 0.1 % (0.0-1.0); EOS # 0.3 10*3/uL (0.0-0.4); EOS % 3.3 % (1.0-4.0); HEMATOCRIT 31.3 % (37.0-47.0); HEMOGLOBIN 10.6 g/dl (12.0-16.0); LYMPH # 1.5 10*3/uL (1.3-4.4); LYMPH % 18.3 % (27.0-41.0); MEAN CELL VOLUME 86.2 fl (81.0-99.0); MEAN CORPUSCULAR HGB 29.2 pg (27.0-31.0); MEAN CORPUSCULAR HGB CONC 33.9 g/dl (33.0-37.0); MEAN PLATELET VOLUME 11.4 fl (9.6-12.3); MONO # 0.9 10*3/uL (0.1-1.0); MONO % 11.4 % (3.0-9.0); NEUT # 5.4 10*3/uL (2.3-7.9); NEUT % 66.4 % (47.0-73.0); PLATELET COUNT AUTOMATED 173 10*3/uL (130-400); RED BLOOD COUNT 3.63 10*6/uL (4.10-5.10); RED CELL DISTRI WIDTH 14.3 % (0-14.5); WHITE BLOOD COUNT 8.1 10*3/uL (4.8-10.8)
[2017-11-04 06:57] LABS: CREATININE 1.84 mg/dL (0.55-1.02)
[2017-11-04 08:00] VITALS: BP 139/41
[2017-11-04 12:00] VITALS: BP 152/46
[2017-11-04 20:00] VITALS: BP 158/51
[2017-11-04 21:40] LABS: BILIRUBIN NEGATIVE (NEGATIVE); BLOOD TRACE-LYSED (NEGATIVE); CLARITY SL CLOUDY (CLEAR); COLOR YELLOW (YELLOW); GLUCOSE 2+ (NEGATIVE); KETONE NEGATIVE (NEGATIVE); LEUKO ESTERASE 3+ (NEGATIVE); NITRITE NEGATIVE (NEGATIVE); SPECIFIC GRAVITY <= 1.005 (1.005-1.030); UROBILINOGEN 0.2 E.U./dl (0.2-1.0)
[2017-11-04 21:57] LABS: BACTERIA TRACE
[2017-11-04 21:58] LABS: WBC 51-100 wbc/hpf (0-5)
[2017-11-05] VITALS: BP 152/61
[2017-11-05 08:00] VITALS: BP 151/58
[2017-11-05 16:00] VITALS: BP 150/50
[2017-11-05 20:00] VITALS: BP 130/56
[2017-11-06] VITALS: BP 137/49
[2017-11-06 05:43] VITALS: BP 120/62
[2017-11-06 08:00] VITALS: BP 146/48
[2017-11-06 16:00] VITALS: BP 145/50
[2017-11-06] MEDS ORDERED: CIPRO500 MG PO (17:13)
[2017-11-06] MEDS ORDERED: BUMETANIDE1 MG PO (17:15)
== END 2017-11-06 17:45 | disposition home or self-care (01) | DRG 871 ==
LOC: ED 08:05 → EDHOLD 11:01 → 5E 11:01
PROVIDERS: Emergency Medicine; Internal Medicine; Student in an Organized Health Care Education/Training Program
DX: A41.9 Sepsis, unspecified organism (principal); J18.1 Lobar pneumonia, unspecified organism; N17.9 Acute kidney failure, unspecified; E11.22 Type 2 diabetes mellitus with diabetic chronic kidney disease; I50.22 Chronic systolic (congestive) heart failure; N18.3 Chronic kidney disease, stage 3 (moderate); N39.0 Urinary tract infection, site not specified; F33.0 Major depressive disorder, recurrent, mild; J98.11 Atelectasis; E86.0 Dehydration; E11.65 Type 2 diabetes mellitus with hyperglycemia; I25.10 Atherosclerotic heart disease of native coronary artery without angina pectoris; B96.4 Proteus (mirabilis) (morganii) as the cause of diseases classified elsewhere; R62.7 Adult failure to thrive; E78.2 Mixed hyperlipidemia; E66.9 Obesity, unspecified; D72.829 Elevated white blood cell count, unspecified; K59.09 Other constipation; J20.9 Acute bronchitis, unspecified; Z79.899 Other long term (current) drug therapy; Z95.1 Presence of aortocoronary bypass graft; Z82.49 Family history of ischemic heart disease and other diseases of the circulatory system; Z80.8 Family history of malignant neoplasm of other organs or systems; Z83.3 Family history of diabetes mellitus; I25.2 Old myocardial infarction; Z79.4 Long term (current) use of insulin; Z68.33 Body mass index [BMI] 33.0-33.9, adult

== ENCOUNTER 2018-01-19 13:34 | Inpatient (IN) | payer MEDICARE ==
[~2018-01-19] VITALS: Ht 162.5 cm; Wt 99.9 kg
--- NOTE | ~2018-01-19 | DS ---
[place], [place] DISCHARGE SUMMARY NAME: JANELLE NI [facility] #: [id number] UNIT #: [id number] ROOM: 505 DOCTOR: LUIZA REEVES MD BIRTHDATE: [birth year] DOS: 01/22/2018 DISCHARGE DIAGNOSES: 1. The patient with dehydration. 2. Chronic diabetic nephropathy and stage 3b kidney failure. 3. Benign essential hypertension. 4. Coronary artery disease of the [place] vessels. 5. Obesity. 6. Major depression, recurrent, mild. 7. Benign essential hypertension. 8. Chronic systolic type congestive heart failure, compensated. 9. Mixed hyperlipidemia. 10. Coronary artery disease of the [place] vessels and coronary artery bypass grafts in 2001. 11. Type 2 diabetes mellitus. HOSPITAL COURSE: The patient presented with increasing shortness of breath and ankle swelling with leg edema and she was found to be in acute over chronic kidney failure. The patient's creatinine was elevated to 2.6 and she was started on hydration with normal saline and the creatinine has improved to 1.8. The patient has chronic stage 3b kidney disease and diabetic nephropathy. The patient is breathing much better. She is also feeling much better and her ankle swelling has resolved. The patient will be discharged to home to follow up with her PCP, Dr. Maximo Leal and her Bumex has stopped, which was apparently contributing to her worsening of kidney failure and dehydration. Type 2 diabetes mellitus, with reasonably controlled blood sugars. The patient remains on glipizide and insulin. Benign essential hypertension, treated with hydralazine, Coreg. Blood pressures are controlled. Mixed hyperlipidemia. The patient on Lipitor, which was continued. Chronic constipation, treated with MiraLax. Major depression, recurrent, mild, treated with citalopram, controlled. LABORATORY DATA: BUN and creatinine of 48 and 1.8 prior to discharge, blood sugar 151. Normal serum electrolytes. Hemoglobin 8.8, white cell count of 5600, normal platelets. DISCHARGE MANAGEMENT: Bumex was stopped, Lipitor 20 mg a day, Coreg 6.25 mg b.i.d., hydralazine 100 mg every 8 hours, Levemir insulin 45 units subcutaneous daily, glipizide 10 mg daily, aspirin 81 mg a day, calcitriol 0.25 mcg daily, citalopram 20 mg a day, MiraLax 17 grams daily. FOLLOWUP: With Dr. Maximo Leal within a week. [place], [place] DISCHARGE SUMMARY NAME: JANELLE NI UNIT #: [id number] ROOM: 505 DOCTOR: LUIZA REEVES MD BIRTHDATE: [birth year] LUIZA REEVES MD CM:DISCHARG [phone] LUIZA REEVES MD 01/22/182028 interface
--- NOTE | ~2018-01-19 | WRIGHTHP ---
[place], [place] PATIENT HISTORY AND PHYSICAL EXAM NAME: JANELLE NI [facility] #: [id number] UNIT #: [id number] ROOM: 505 DOCTOR: LUIZA REEVES MD BIRTHDATE: [birth year] DOS: 01/19/2018 HISTORY OF PRESENT ILLNESS: The patient is a 67-year-old female with a past medical history of: 1. Type 2 diabetes mellitus. 2. Adult failure to thrive. 3. Diabetic nephropathy and chronic kidney disease stage 3a. 4. Major depression, recurrent, mild. 5. Benign essential hypertension. 6. Chronic systolic type congestive heart failure. 7. Mixed hyperlipidemia. 8. Coronary artery disease of the [place] vessels and bypass grafts in 2001. The patient presented to [facility] with increasing complaints of shortness of breath and ankle and leg edema for last few days. The patient was found to be in acute congestive heart failure in the Emergency Department with some minimal left pleural effusion. The patient was also found to have worsening of kidney failure and she was recommended for admission and further management. REVIEW OF SYSTEMS: LUNGS: Increased shortness of breath. GASTROINTESTINAL: No nausea, vomiting, diarrhea or constipation. CARDIOVASCULAR: No chest pains or palpitations. FAMILY HISTORY: Noncontributory. HOME MEDICATIONS: The patient takes MiraLax, glipizide, citalopram, aspirin, Bumex, hydralazine, Coreg, Cipro at home. ALLERGIES: No known drug allergies. PHYSICAL EXAMINATION: GENERAL: Alert and oriented x 3, in no visible distress, except for some obesity. VITAL SIGNS: Blood pressure 168/64, heart rate 57 beats per minute, breathing normally, afebrile. HEENT AND NECK: Extraocular movements are intact. Sclerae are anicteric. Oral mucosa is moist and clean. No obvious facial weakness. Neck is supple without any lymphadenopathy. No thyromegaly. No JVD. No carotid arterial bruits. LUNGS: Decreased breath sounds, especially at the bases on both sides. CARDIOVASCULAR SYSTEM: Heart rate is regular in rate and rhythm. S1 and S2 normally audible. No significant murmur or any other abnormal cardiac sounds. ABDOMEN: Soft, nontender. No obvious organomegaly. Bowel sounds are present. No obvious herniation. EXTREMITIES: Without significant cyanosis or edema. Warm to touch. CENTRAL NERVOUS SYSTEM: Alert and oriented x 3. Cranial nerves II-XII are intact. Speech is normal. The patient is able to move all extremities. Normal muscle strength. Deep tendon reflexes are equal on both sides. Plantars were downgoing. [place], [place] PATIENT HISTORY AND PHYSICAL EXAM NAME: JANELLE NI UNIT #: [id number] ROOM: [facility] DOCTOR: LUIZA REEVES MD BIRTHDATE: [birth year] LABORATORY DATA: Hemoglobin 9.1, normal platelets. No leukocytosis. Urine cultures grew heavy Streptococcus agalactiae from the with no leucocytosis. IMPRESSION: 1. The patient presenting with suspected acute congestive heart failure, systolic type. The patient started on diuresis. The patient clinically also looks dehydrated. I will stop her diuresis and start on slow hydration. 2. Acute over chronic kidney failure with diabetic nephropathy stage 3. I will follow serum electrolytes daily. 3. Type 2 diabetes mellitus. Monitor blood sugars and treat accordingly, continue her home medications. 4. Coronary artery disease of the [place] vessels with bypass grafts in 2001, without chest pains. 5. Major depression, recurrent, mild. I will continue all her treatments. 6. Generalized weakness and adult failure to thrive. The patient is to be kept on physical therapy. 7. Acute over chronic kidney failure. The patient is to be hydrated with normal saline and serum electrolytes and BUN and creatinine to be monitored. 8. Adult failure to thrive. The patient will be kept on physical therapy. LUIZA REEVES MD CM:HISPHYS:PATIENT HISTORY AND PHYSICAL EXAMINATION 42 [phone] LUIZA REEVES MD 01/19/181927 interface
--- NOTE | ~2018-01-19 | PR ---
[place], [place] PROGRESS NOTE [id number] UNIT #: [id number] ROOM: 505 DOCTOR: LUIZA REEVES MD BIRTHDATE: [birth year] DOS: 01/20/2018 SUBJECTIVE: The patient is doing better than yesterday. She is starting to ambulate and breathe better. OBJECTIVE: VITAL SIGNS: Blood pressure 147/54 heart rate of 64 beats per minute, afebrile, breathing normally. GENERAL APPEARANCE: The patient is alert and oriented x 3, in no visible distress, except for obesity. HEENT AND NECK: Exam within normal limits. CARDIOVASCULAR SYSTEM: Heart rate is regular in rate and rhythm. S1 and S2 normally audible. LUNGS: Clear to auscultation. ABDOMEN: Soft, nontender. No obvious organomegaly. Bowel sounds are present. EXTREMITIES: Without significant cyanosis or edema. 1. Acute over chronic kidney failure, improving with hydration with normal saline. BUN and creatinine have improved to 53 and 1.9 as compared to 50 and 2.6 at admission. 2. Type 2 diabetes mellitus. Blood sugars are being monitored and treated. 3. Advance adult failure to thrive. The patient is working with Physical Therapy. 4. Diabetic nephropathy and chronic kidney disease stage 3a. 5. Benign essential hypertension, with controlled blood pressures with treatment. 6. Coronary artery disease of the [place] vessels, without chest pains. LUIZA REEVES MD CM:PNTRANS 99 [phone] LUIZA REEVES MD 01/21/182032 interface
--- NOTE | ~2018-01-19 | PR ---
[place], [place] PROGRESS NOTE NAME: JANELLE NI UNIT #: [id number] ROOM: 505 DOCTOR: LUIZA REEVES MD BIRTHDATE: [birth year] DOS: 01/20/2018 4. Please do yesterday. I could not log from yesterday. The patient was seen yesterday was 01/20/2018 and this is again Janelle 12/02/2017 11/01/2017 01/04/2018 12/03/2017 01/20/2018. The patient is doing better than yesterday. She is starting to ambulate and breathing better. VITAL SIGNS: Blood pressure 141/47/54 heart rate of 84 beats per minute, afebrile, breathing normally. IMPRESSION: Acute over chronic kidney failure, LUIZA REEVES MD CM:PNTRANS 99 [phone] LUIZA REEVES MD 01/21/182028 interface
[~2018-01-19 13:34] MED LIST changes: +BUMETANIDE1 MG PO; +CIPRO500 MG PO; +COREG6.25 MG PO; +Rocaltrol0.25 MCG PO
[2018-01-19 13:44] VITALS: BP 142/54
[2018-01-19 14:07] LABS: BASO % 0.5 % (0.0-1.0); EOS # 0.1 10*3/uL (0.0-0.4); EOS % 1.9 % (1.0-4.0); HEMATOCRIT 28.3 % (37.0-47.0); HEMOGLOBIN 9.1 g/dl (12.0-16.0); LYMPH % 15.2 % (27.0-41.0); MEAN CELL VOLUME 91.6 fl (81.0-99.0); MEAN CORPUSCULAR HGB 29.4 pg (27.0-31.0); MEAN CORPUSCULAR HGB CONC 32.2 g/dl (33.0-37.0); MONO # 0.6 10*3/uL (0.1-1.0); MONO % 8.7 % (3.0-9.0); NEUT # 4.7 10*3/uL (2.3-7.9); NEUT % 73.2 % (47.0-73.0); PLATELET COUNT AUTOMATED 166 10*3/uL (130-400); RED BLOOD COUNT 3.09 10*6/uL (4.10-5.10); RED CELL DISTRI WIDTH 14.3 % (0-14.5); WHITE BLOOD COUNT 6.5 10*3/uL (4.8-10.8)
[2018-01-19 14:18] LABS: ACT PARTIAL THROMBO TIME 23.7 SECONDS (20.8-31.5); INTERNATIONAL NORM RATIO 1.1 (2.0-3.5)
[2018-01-19 14:26] LABS: ALBUMIN 3.4 gm/dl (3.1-4.5); CREATININE 2.61 mg/dL (0.55-1.02); POTASSIUM 5.4 mmol/L (3.5-5.1); TOTAL PROTEIN 7.3 gm/dL (6.4-8.2)
[2018-01-19 14:27] LABS: TROPONIN I 0.015 ng/ml (<0.045)
[2018-01-19 14:44] VITALS: BP 142/76
[2018-01-19 14:55] VITALS: BP 160/70
[2018-01-19 16:00] VITALS: BP 168/64
[2018-01-19 20:00] VITALS: BP 118/64
[2018-01-19 21:13] VITALS: BP 125/35; BP 140/68
[2018-01-20 01:27] VITALS: BP 100/50; BP 118/58
[2018-01-20 04:00] VITALS: BP 142/64
[2018-01-20 06:19] LABS: BASO % 0.4 % (0.0-1.0); EOS # 0.1 10*3/uL (0.0-0.4); EOS % 2.3 % (1.0-4.0); HEMATOCRIT 27.2 % (37.0-47.0); HEMOGLOBIN 8.8 g/dl (12.0-16.0); LYMPH % 17.3 % (27.0-41.0); MEAN CELL VOLUME 91.3 fl (81.0-99.0); MEAN CORPUSCULAR HGB 29.5 pg (27.0-31.0); MEAN CORPUSCULAR HGB CONC 32.4 g/dl (33.0-37.0); MEAN PLATELET VOLUME 10.8 fl (9.6-12.3); MONO # 0.5 10*3/uL (0.1-1.0); MONO % 8.6 % (3.0-9.0); PLATELET COUNT AUTOMATED 155 10*3/uL (130-400); RED BLOOD COUNT 2.98 10*6/uL (4.10-5.10); RED CELL DISTRI WIDTH 14.3 % (0-14.5); WHITE BLOOD COUNT 5.6 10*3/uL (4.8-10.8)
[2018-01-20 06:49] LABS: CREATININE 2.13 mg/dL (0.55-1.02); POTASSIUM 4.7 mmol/L (3.5-5.1)
[2018-01-20 08:00] VITALS: BP 136/87
[2018-01-20 16:00] VITALS: BP 134/76
[2018-01-20 20:00] VITALS: BP 134/43
[2018-01-21] VITALS: BP 158/66
[2018-01-21 07:11] LABS: CREATININE 1.97 mg/dL (0.55-1.02)
[2018-01-21 08:00] VITALS: BP 154/62
[2018-01-21 12:00] VITALS: BP 158/68
[2018-01-21 16:00] VITALS: BP 147/54
[2018-01-21 20:00] VITALS: BP 136/59
[2018-01-22] VITALS: BP 160/64
[2018-01-22 05:31] VITALS: BP 140/60
[2018-01-22 07:04] LABS: CREATININE 1.8 mg/dL (0.55-1.02); POTASSIUM 4.6 mmol/L (3.5-5.1)
[2018-01-22 08:00] VITALS: BP 150/59
[2018-01-22 12:00] VITALS: BP 168/60
[2018-01-22 16:04] VITALS: BP 161/57
== END 2018-01-22 18:20 | disposition home or self-care (01) | DRG 682 ==
LOC: ED 13:34 → 5E 14:42 → EDHOLD 14:42 → 5E 14:50
PROVIDERS: Internal Medicine; Student in an Organized Health Care Education/Training Program
DX: N17.9 Acute kidney failure, unspecified (principal); I50.23 Acute on chronic systolic (congestive) heart failure; E11.22 Type 2 diabetes mellitus with diabetic chronic kidney disease; F33.0 Major depressive disorder, recurrent, mild; I13.0 Hypertensive heart and chronic kidney disease with heart failure and stage 1 through stage 4 chronic kidney disease, or unspecified chronic kidney disease; I25.810 Atherosclerosis of coronary artery bypass graft(s) without angina pectoris; E86.0 Dehydration; N18.3 Chronic kidney disease, stage 3 (moderate); R62.7 Adult failure to thrive; E78.2 Mixed hyperlipidemia; E66.9 Obesity, unspecified; K59.09 Other constipation; Z68.37 Body mass index [BMI] 37.0-37.9, adult; Z95.1 Presence of aortocoronary bypass graft; Z87.820 Personal history of traumatic brain injury; I25.2 Old myocardial infarction; Z82.49 Family history of ischemic heart disease and other diseases of the circulatory system; Z80.8 Family history of malignant neoplasm of other organs or systems; Z83.3 Family history of diabetes mellitus; Z79.899 Other long term (current) drug therapy; Z79.4 Long term (current) use of insulin

== ENCOUNTER 2018-01-26 16:27 | Inpatient (IN) | payer MEDICARE ==
[~2018-01-26] VITALS: Ht 162.5 cm; Wt 99.4 kg
--- NOTE | ~2018-01-26 | DS ---
[place], [place] DISCHARGE SUMMARY NAME: JANELLE NI [facility] #: [id number] UNIT #: [id number] ROOM: 507 DOCTOR: VIOLETA PERRY MD BIRTHDATE: [birth year] DOS: HOSPITAL COURSE: The patient is 67-year-old, not known to me, comes in with complaints of difficulty breathing. Please refer to H and P dictated by Dr. Castle for further details. She was admitted with acute diastolic CHF. After admission, she was seen by Dr. Garcia, torsemide was started, Isordil was also added. The patient feels much better. Her shortness of breath and fluid overload has resolved. The patient has been slightly on the hypoglycemic side and the glipizide has been discontinued. The patient this morning is stable and improved. The plan is therefore to discharge her to home, follow up with Dr. Leal. DISCHARGE DIAGNOSES: 1. Acute systolic congestive heart failure. 2. Chronic renal insufficiency stage 4. 3. Coronary artery disease. 4. Benign hypertension. 5. Ischemic cardiomyopathy. 6. Major depression, mild, recurrent. 7. Type 2 diabetes mellitus, insulin-dependent. DISCHARGE MEDICATIONS: Will be torsemide 20 daily, Isordil 10 t.i.d., citalopram 20 daily, Lantus 30 units at bedtime, atorvastatin 20 daily, aspirin 81 daily, polyethylene glycol 17 grams daily, hydralazine 100 q. 8 hours, iron 325 twice a day, Tylenol 650 q. 8 hours, Coreg 6.25 b.i.d., Rocaltrol 0.25 mcg daily, vitamin D 50,000 units once a week. VIOLETA PERRY MD CM:DISCHARG [id number] VIOLETA PERRY MD 01/29/18 1027 interface
--- NOTE | ~2018-01-26 | PR ---
[place], [place] PROGRESS NOTE NAME: JANELLE NI UNIT #: [id number] ROOM: 507 DOCTOR: JAZIEL MCNEILL,DANIEL BIRTHDATE: [birth year] DOS: 01/28/2018 REASON FOR VISIT: The patient with congestive heart failure, coronary artery disease. HISTORY OF PRESENT ILLNESS: The patient is feeling better. Denies any chest pain or shortness of breath. She is ambulating without much difficulty. No PND. No orthopnea. No fever and chills. No nausea, vomiting, diarrhea. REVIEW OF SYSTEMS: Review of the 10 systems negative except as mentioned above. RHYTHM STRIPS: The patient was in sinus rhythm on the monitor. PHYSICAL EXAMINATION: VITAL SIGNS: Blood pressure 120/58, pulse 57, respiratory rate was 16, weight 99.3 kilos with BMI 33.6. GENERAL: Alert, comfortable, in no acute distress. The patient is sitting on the bedside. HEENT: Pupils round and equal. No jaundice. Tongue was moist and pharynx was clear. NECK: Supple. No distended neck veins. No carotid bruit. CHEST: Symmetrical, nontender. LUNGS: Few scattered rhonchi, diminished at bases. HEART: Regular rhythm. No S3. No palpable thrills. Grade 1/6 systolic murmur. ABDOMEN: Obese, nontender. Bowel sounds normal. EXTREMITIES: Showed 1-2+ edema on the left leg and trace edema on right leg. RECTAL: Deferred. GENITOURINARY: Deferred. SKIN: Warm and dry. No cyanosis. No clubbing. NEUROLOGIC: Deferred. MEDICATIONS: Reviewed. ALLERGIES: Reviewed. IMPRESSION: 1. Acute on chronic systolic heart failure, ejection fraction 40% by echo. 2. Coronary artery disease, status post bypass 5 to 6 years ago, cardiac catheterization in 2016, medical therapy recommended. 3. Chronic kidney disease. 4. Anemia. 5. Hypertension. 6. Morbid obesity. 7. Sinus bradycardia, asymptomatic. RECOMMENDATIONS: 1. Continue current medications. 2. Continue her beta blockers, hydralazine and nitrates. 3. No OMER inhibitor, ARB, Entresto due to chronic kidney disease. [place], [place] PROGRESS NOTE NAME: JANELLE NI UNIT #: [id number] ROOM: 507 DOCTOR: JAZIEL MCNEILL,DANIEL BIRTHDATE: [birth year] 4. Possible discharge in the next 24 hours. 5. The patient will be referred to Dr. Simmons, advanced heart failure clinic. 6. Continue to monitor heart rates, blood pressures and renal function as well as hemoglobin. 7. Risk factor modification discussed. 8. There is no family at bedside at the time of examination. DANIEL SHERIFF MD CM:PNTRANS [phone] DANIEL SHERIFF MD 01/28/18 1841 interface
--- NOTE | ~2018-01-26 | PR ---
[place], [place] PROGRESS NOTE NAME: JANELLE NI [facility] #: [id number] UNIT #: [id number] ROOM: 507 DOCTOR: VIOLETA PERRY MD BIRTHDATE: [birth year] DOS: 01/29/2018 SUBJECTIVE: The patient is feeling good and is not having any complaints today. OBJECTIVE: VITAL SIGNS: Blood pressure is 139/40, pulse of 50, respirations 18, temperature 97.8. LUNGS: Clear. HEART: Regular. ABDOMEN: Obese. EXTREMITIES: Without any edema. LABORATORY DATA: BMP: Glucose 194, BUN 45, creatinine 1.78, sodium 139, potassium 4.5. ASSESSMENT AND PLAN: 1. The patient who presents with acute congestive heart failure, systolic, on diuretics, diuresed and doing well. 2. Ischemic cardiomyopathy, on hydralazine and nitrates. 3. Chronic renal failure, stable, stage IV. 4. Type 2 diabetes mellitus, insulin-dependent. The patient is stable. The plan is to discharge her to home today. VIOLETA PERRY MD CM:PNTRANS [phone] VIOLETA PERRY MD 01/29/18 1326 interface
--- NOTE | ~2018-01-26 | WRIGHTHP ---
[place], [place] PATIENT HISTORY AND PHYSICAL EXAM NAME: JANELLE NI [facility] #: [id number] UNIT #: [id number] ROOM: 507 DOCTOR: LUIZA REEVES MD BIRTHDATE: [birth year] DOS: 01/26/2018 HISTORY OF PRESENT ILLNESS: The patient is a 67-year-old female with a past medical history of: 1. 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 2. Coronary artery disease of the [place] vessels. 3. Chronic diabetic nephropathy, stage 3B, chronic kidney failure. 4. Benign essential hypertension. 5. Obesity. 6. Major depression, recurrent, mild. 7. Coronary artery disease of [place] vessels and coronary artery bypass grafts in 2001. 8. Type 2 diabetes mellitus. The patient recently discharged from [facility] on , 4 days earlier after treatment for acute over chronic kidney failure and dehydration. The patient's kidney function, breathing and ankle edema had improved with treatment. After going home, the patient started getting increasingly short of breath and came to the emergency department and she was again suspected to have acute over chronic congestive heart failure. An echocardiogram has been ordered and the patient's left ventricular ejection fraction appears to be around 40% with anterior wall dyskinesia compatible with previous OR. The patient was admitted after one dose of Bumex in the emergency department. I have obtained cardiology consult to follow her to decide on her treatment because extra fluids means better kidney function and less fluid and more diuresis with this patient means congestive heart failure. REVIEW OF SYSTEMS: LUNGS: Increased shortness of breath. GASTROINTESTINAL: No nausea, vomiting, diarrhea or constipation. CARDIOVASCULAR: No chest pains or palpitations. FAMILY HISTORY: Noncontributory. HOME MEDICATIONS: DuoNeb, Coreg, hydralazine, glipizide, citalopram. ALLERGIES: No known drug allergies. PHYSICAL EXAMINATION: GENERAL: Alert, oriented times 3. VITAL SIGNS: Blood pressure 147/52, heart rate of 52 beats, breathing 21 times per minute, temperature 98.1 degrees Fahrenheit. HEENT AND NECK: Extraocular movements are intact. Sclerae are anicteric. Oral mucosa is moist and clean. No obvious facial weakness. Neck is supple without any lymphadenopathy. No thyromegaly. No JVD. No carotid arterial bruits. LUNGS: Crackles at the bases of the lungs, which are chronic. CARDIOVASCULAR SYSTEM: Heart rate is regular in rate and rhythm. S1 and S2 normally audible. No significant murmur or any other abnormal cardiac sounds. ABDOMEN: Soft, nontender. No obvious organomegaly. Bowel sounds are present. No obvious herniation. Obesity. [place], [place] PATIENT HISTORY AND PHYSICAL EXAM NAME: JANELLE NI [facility] #: [id number] UNIT #: [id number] ROOM: 507 DOCTOR: LUIZA REEVES MD BIRTHDATE: [birth year] EXTREMITIES: Without significant cyanosis or edema. Warm to touch. CENTRAL NERVOUS SYSTEM: Alert and oriented times 3. Cranial nerves II-XII are intact. Speech is normal. The patient is able to move all extremities. Normal muscle strength. Deep tendon reflexes are equal on both sides. Plantars were downgoing. IMPRESSION: 1. The patient with combined systolic and diastolic type congestive heart failure with acute over chronic congestive heart failure, treated with diuresis initially. I will be very cautious in diuresing the patient because her kidney function gets worse with this. I have consulted plumbing service technician, Dr. Garcia, to help with evaluation and management. Echocardiogram has been repeated which shows reduced left ventricular ejection fraction to almost 40% and some anterior wall hypokinesis compatible with previous OR in this area. 2. History of coronary artery disease of [place] vessels without chest pains. 3. Benign essential hypertension with controlled blood pressures. 4. Coronary artery disease of the [place] vessels without chest pains. 5. Chronic diabetic nephropathy with creatinine now higher than it was at last discharge 4 days ago, BUN is 48 and creatinine 2.13. 6. The patient's chest x-ray shows questionable pulmonary edema. 7. Benign essential hypertension with controlled blood pressures with treatment. 8. Coronary artery disease of [place] vessels without chest pains. 9. Type 2 diabetes mellitus. Blood sugars have been monitored and treated and controlled. The patient to be kept on a no concentrated sweet diet. 10. Old age and disability. The patient to work with physical therapy. 11. Mixed hyperlipidemia treated with Lipitor. 12. Despite of chronic lung disease and suspected congestive heart failure, her pulse ox has been good at room air saturating between 95-100% even without oxygen. LUIZA REEVES MD CM:HISPHYS:PATIENT HISTORY AND PHYSICAL EXAMINATION 1513 [id number] LUIZA REEVES MD 01/27/18 1800 interface
--- NOTE | ~2018-01-26 | PR ---
[place], [place] PROGRESS NOTE NAME: JANELLE NI [facility] #: [id number] UNIT #: [id number] ROOM: 507 DOCTOR: VIOLETA PERRY MD BIRTHDATE: [birth year] DOS: 01/28/2018 SUBJECTIVE: The patient is sitting up in chair, states that she is feeling better. She does get short of breath when she walks to the bathroom. The patient also states that her blood sugars have been running low. OBJECTIVE: VITAL SIGNS: Blood pressure is 129/50, pulse of 50, respirations 20, temperature 98.1. LUNGS: Diminished breath sounds. HEART: Regular. ABDOMEN: Obese. EXTREMITIES: Trace edema bilaterally. LABORATORY DATA: Intake-output for the last 24 hours negative balance of 780 mL. WBC count is 5.9, hemoglobin 8.2, hematocrit 26.0, platelets 158. BMP: Glucose 76, BUN 44, creatinine 1.82, sodium 143, potassium 4.3, chloride 108. ASSESSMENT AND PLAN: 1. The patient with acute systolic CHF with cardiomyopathy, ischemic. The patient is on p.o. diuretics. We will discuss with Cardiology whether Entresto would be a good medication for this patient. 2. Diabetic nephropathy with chronic renal failure. Kidney functions are fairly stable for the patient as she is at her baseline of a GFR of 28, which is stage IV kidney disease. 3. Type 2 diabetes mellitus, insulin-dependent with hypoglycemia. Blood sugars were 60 this morning. We will discontinue glyburide, which may not be a good medication in a patient with underlying renal disease. 4. Once cleared by Cardiology, the patient will be discharged hopefully in the morning. VIOLETA PERRY MD CM:PNTRANS [phone] VIOLETA PERRY MD 01/28/18 1209 interface
[2018-01-26 16:27] VITALS: BP 123/53
[2018-01-26 17:14] LABS: BASO % 0.4 % (0.0-1.0); EOS # 0.2 10*3/uL (0.0-0.4); EOS % 2.6 % (1.0-4.0); HEMATOCRIT 28.5 % (37.0-47.0); HEMOGLOBIN 9.1 g/dl (12.0-16.0); LYMPH % 14.8 % (27.0-41.0); MEAN CELL VOLUME 92.5 fl (81.0-99.0); MEAN CORPUSCULAR HGB 29.5 pg (27.0-31.0); MEAN CORPUSCULAR HGB CONC 31.9 g/dl (33.0-37.0); MEAN PLATELET VOLUME 9.9 fl (9.6-12.3); MONO # 0.6 10*3/uL (0.1-1.0); MONO % 8.6 % (3.0-9.0); NEUT # 5.1 10*3/uL (2.3-7.9); NEUT % 73.3 % (47.0-73.0); PLATELET COUNT AUTOMATED 185 10*3/uL (130-400); RED BLOOD COUNT 3.08 10*6/uL (4.10-5.10); RED CELL DISTRI WIDTH 14.5 % (0-14.5)
[2018-01-26 17:30] VITALS: BP 153/56
[2018-01-26 17:31] LABS: ALBUMIN 3.3 gm/dl (3.1-4.5); CREATININE 2.15 mg/dL (0.55-1.02); POTASSIUM 4.4 mmol/L (3.5-5.1); TOTAL PROTEIN 7.3 gm/dL (6.4-8.2); TROPONIN I 0.016 ng/ml (<0.045)
[2018-01-26 18:56] VITALS: BP 174/67
[2018-01-26 19:04] VITALS: BP 177/69
[2018-01-26 19:10] VITALS: BP 168/64
[2018-01-27] VITALS: BP 152/55
[2018-01-27 08:00] VITALS: BP 145/60
[2018-01-27 12:00] VITALS: BP 147/52
[2018-01-27 16:00] VITALS: BP 170/67
[2018-01-27 20:00] VITALS: BP 177/65
[2018-01-28] VITALS: BP 129/50
[2018-01-28 06:03] LABS: BASO % 0.3 % (0.0-1.0); EOS # 0.2 10*3/uL (0.0-0.4); EOS % 2.9 % (1.0-4.0); HEMOGLOBIN 8.2 g/dl (12.0-16.0); LYMPH # 1.1 10*3/uL (1.3-4.4); LYMPH % 18.6 % (27.0-41.0); MEAN CELL VOLUME 92.2 fl (81.0-99.0); MEAN CORPUSCULAR HGB 29.1 pg (27.0-31.0); MEAN CORPUSCULAR HGB CONC 31.5 g/dl (33.0-37.0); MEAN PLATELET VOLUME 10.5 fl (9.6-12.3); MONO # 0.8 10*3/uL (0.1-1.0); MONO % 13.7 % (3.0-9.0); NEUT # 3.8 10*3/uL (2.3-7.9); NEUT % 64.3 % (47.0-73.0); PLATELET COUNT AUTOMATED 158 10*3/uL (130-400); RED BLOOD COUNT 2.82 10*6/uL (4.10-5.10); RED CELL DISTRI WIDTH 14.5 % (0-14.5); WHITE BLOOD COUNT 5.9 10*3/uL (4.8-10.8)
[2018-01-28 06:11] LABS: CREATININE 1.82 mg/dL (0.55-1.02); POTASSIUM 4.3 mmol/L (3.5-5.1)
[2018-01-28 08:00] VITALS: BP 168/80
[2018-01-28 12:00] VITALS: BP 120/58
[2018-01-28 16:00] VITALS: BP 148/59
[2018-01-28 20:00] VITALS: BP 159/59
[2018-01-28 22:00] VITALS: BP 159/59
[2018-01-29 00:19] VITALS: BP 128/39
[2018-01-29 06:36] LABS: CREATININE 1.78 mg/dL (0.55-1.02); POTASSIUM 4.5 mmol/L (3.5-5.1)
[2018-01-29 08:00] VITALS: BP 139/40
[2018-01-29] MEDS ORDERED: TORSEMIDE20 MG PO (08:07)
[2018-01-29] MEDS ORDERED: ISORDIL10 M1 PO (08:07)
== END 2018-01-29 11:21 | disposition home or self-care (01) | DRG 291 ==
LOC: ED 16:27 → EDHOLD 18:12 → 5E 18:12
PROVIDERS: Internal Medicine; Nurse Practitioner Family
DX: I13.0 Hypertensive heart and chronic kidney disease with heart failure and stage 1 through stage 4 chronic kidney disease, or unspecified chronic kidney disease (principal); N17.0 Acute kidney failure with tubular necrosis; I50.43 Acute on chronic combined systolic (congestive) and diastolic (congestive) heart failure; F33.0 Major depressive disorder, recurrent, mild; N18.4 Chronic kidney disease, stage 4 (severe); E11.22 Type 2 diabetes mellitus with diabetic chronic kidney disease; E11.649 Type 2 diabetes mellitus with hypoglycemia without coma; I25.10 Atherosclerotic heart disease of native coronary artery without angina pectoris; D64.9 Anemia, unspecified; E66.01 Morbid (severe) obesity due to excess calories; I44.7 Left bundle-branch block, unspecified; I25.5 Ischemic cardiomyopathy; E78.2 Mixed hyperlipidemia; Z82.49 Family history of ischemic heart disease and other diseases of the circulatory system; Z95.1 Presence of aortocoronary bypass graft; Z79.899 Other long term (current) drug therapy; I25.2 Old myocardial infarction; Z80.9 Family history of malignant neoplasm, unspecified; Z83.3 Family history of diabetes mellitus; Z68.38 Body mass index [BMI] 38.0-38.9, adult

== ENCOUNTER 2018-05-10 15:56 | Emergency (ER) | payer MEDICARE ==
[~2018-05-10] VITALS: Ht 162.5 cm; Wt 97.5 kg
--- NOTE | ~2018-05-10 | EKG ---
[place], [place] ELECTROCARDIOGRAM REPORT NAME: JANELLE NI UNIT #: [id number] ROOM: DOCTOR: EPIPHANY DRAFT REPORT BIRTHDATE: [birth year] [facility] Test Date: 2018-05-10 Test Time: 18:13:22 Pat Name: JANELLE NI Department: Room: Gender: F Cadet Deck: : 1950 Requested By: DIMITRI BRIZUELA Order Number: [id number] Reading MD: Tom Joyce MD Measurements Intervals [place] Rate: 69 P: 32 AR: 206 QRS: -28 QRSD: 125 T: 204 QT: 430 QTc: 461 Interpretive Statements Sinus rhythm Left bundle branch block Abnormal EKG. Electronically Signed On 05-11-2018 16:09:26 PDT by Tom Joyce MD CM:EKGRPT:ELECTROCARDIOGRAM REPORT [id number] DIMITRI BRIZUELA EPIPHANY DRAFT REPORT DIMITRI BRIZUELA
[~2018-05-10 15:56] MED LIST changes: +ISORDIL10 M1 PO; +TORSEMIDE20 MG PO
[2018-05-10 17:29] LABS: BASO % 0.1 % (0.0-1.0); HEMATOCRIT 29.5 % (37.0-47.0); HEMOGLOBIN 9.6 g/dl (12.0-16.0); LYMPH # 0.6 10*3/uL (1.3-4.4); LYMPH % 3.5 % (27.0-41.0); MEAN CELL VOLUME 82.9 fl (81.0-99.0); MEAN CORPUSCULAR HGB CONC 32.5 g/dl (33.0-37.0); MEAN PLATELET VOLUME 10.5 fl (9.6-12.3); MONO # 1.1 10*3/uL (0.1-1.0); MONO % 6.5 % (3.0-9.0); NEUT # 15.2 10*3/uL (2.3-7.9); NEUT % 89.5 % (47.0-73.0); PLATELET COUNT AUTOMATED 229 10*3/uL (130-400); RED BLOOD COUNT 3.56 10*6/uL (4.10-5.10); RED CELL DISTRI WIDTH 14.7 % (0-14.5); WHITE BLOOD COUNT 16.9 10*3/uL (4.8-10.8)
[2018-05-10 17:45] LABS: CREATININE 2.48 mg/dL (0.55-1.02); TOTAL PROTEIN 8.1 gm/dL (6.4-8.2)
[2018-05-10 17:49] LABS: TROPONIN I 5.52 ng/ml (<0.045)
[2018-05-10 20:09] LABS: BILIRUBIN NEGATIVE (NEGATIVE); BLOOD 1+ (NEGATIVE); CLARITY CLOUDY (CLEAR); COLOR YELLOW (YELLOW); GLUCOSE 1+ (NEGATIVE); KETONE NEGATIVE (NEGATIVE); LEUKO ESTERASE 2+ (NEGATIVE); NITRITE NEGATIVE (NEGATIVE); UROBILINOGEN 0.2 E.U./dl (0.2-1.0)
[2018-05-10 20:13] LABS: WBC TNTC wbc/hpf (0-5)
== END 2018-05-11 00:22 | disposition short-term general hospital (02) ==
LOC: ED 15:56
PROVIDERS: Nurse Practitioner Family
DX: N17.9 Acute kidney failure, unspecified (principal); E11.65 Type 2 diabetes mellitus with hyperglycemia; I25.10 Atherosclerotic heart disease of native coronary artery without angina pectoris; I13.0 Hypertensive heart and chronic kidney disease with heart failure and stage 1 through stage 4 chronic kidney disease, or unspecified chronic kidney disease; E11.22 Type 2 diabetes mellitus with diabetic chronic kidney disease; N18.3 Chronic kidney disease, stage 3 (moderate); I50.9 Heart failure, unspecified; I25.2 Old myocardial infarction; I44.7 Left bundle-branch block, unspecified; Z95.1 Presence of aortocoronary bypass graft; Z79.82 Long term (current) use of aspirin; Z79.899 Other long term (current) drug therapy

== ENCOUNTER 2018-05-17 23:10 | Emergency (ER) | payer MEDICARE ==
[~2018-05-17] VITALS: Ht 167.6 cm; Wt 90.7 kg
== END 2018-05-18 06:29 | disposition home or self-care (01) ==
LOC: ED 23:10
DX: K59.09 Other constipation (principal); E66.01 Morbid (severe) obesity due to excess calories; I25.10 Atherosclerotic heart disease of native coronary artery without angina pectoris; I13.0 Hypertensive heart and chronic kidney disease with heart failure and stage 1 through stage 4 chronic kidney disease, or unspecified chronic kidney disease; E11.22 Type 2 diabetes mellitus with diabetic chronic kidney disease; N18.3 Chronic kidney disease, stage 3 (moderate); I50.9 Heart failure, unspecified; I44.7 Left bundle-branch block, unspecified; I25.2 Old myocardial infarction; E11.65 Type 2 diabetes mellitus with hyperglycemia; Z95.1 Presence of aortocoronary bypass graft; Z79.899 Other long term (current) drug therapy; Z79.82 Long term (current) use of aspirin

== ENCOUNTER → 2018-06-08 | Outpatient (CLI) | payer MEDICARE ==
[2018-06-08 16:14] LABS: HEMATOCRIT 31.5 % (37.0-47.0); HEMOGLOBIN 9.6 g/dl (12.0-16.0); MEAN CELL VOLUME 84.9 fl (81.0-99.0); MEAN CORPUSCULAR HGB 25.9 pg (27.0-31.0); MEAN CORPUSCULAR HGB CONC 30.5 g/dl (33.0-37.0); MEAN PLATELET VOLUME 10.4 fl (9.6-12.3); RED BLOOD COUNT 3.71 10*6/uL (4.10-5.10); RED CELL DISTRI WIDTH 17.9 % (0-14.5); WHITE BLOOD COUNT 7.3 10*3/uL (4.8-10.8)
[2018-06-08 16:45] LABS: ALBUMIN 3.3 gm/dl (3.1-4.5); CREATININE 1.68 mg/dL (0.55-1.02); POTASSIUM 4.4 mmol/L (3.5-5.1); TOTAL PROTEIN 7.9 gm/dL (6.4-8.2)
[2018-06-09 08:08] LABS: RHEUMATOID ARTHRITIS FACTOR <10.0 IU/mL (0.0-13.9)
== END | disposition home or self-care (01) ==
LOC: LAB 14:54
PROVIDERS: Family Medicine
DX: E55.9 Vitamin D deficiency, unspecified (principal); I10 Essential (primary) hypertension; M25.50 Pain in unspecified joint

== ENCOUNTER 2018-07-05 15:09 | Inpatient (IN) | payer MEDICARE ==
[~2018-07-05] VITALS: Ht 162.5 cm; Wt 94.9 kg
--- NOTE | ~2018-07-05 | CON ---
[place], [place] REPORT OF CONSULTATION [id number] UNIT #: [id number] ROOM: 502 DOCTOR: SILVIO EARLY MD BIRTHDATE: [birth year] DOS: 07/06/2018 CARDIOLOGY CONSULTATION REASON FOR CONSULTATION: Heart failure. HISTORY OF PRESENT ILLNESS: The patient is a 68-year-old woman who we follow as an outpatient for ischemic cardiomyopathy, chronic systolic congestive heart failure, and coronary artery disease. Recently an ICD was placed because of persistent poor LV function despite guideline directed medical therapy. She has a history of coronary artery disease, which was treated with a 3-vessel bypass at the [facility] in [place], [place], in 2011. She has had poor left ventricular function since then. We have been hampered in our attempts to treat her by her renal insufficiency. She was recently hospitalized at [facility] with worsening heart failure and was seen by our starting gate driver at that time. An ICD was placed by Dr. Mando Marti on 05/15/2018. I saw her in the office on 06/27/2018 and she seemed to be doing quite well. She showed no signs of fluid overload or acute heart failure. We in fact did refer her for cardiac rehab. After I saw her, she began to hold on to water in her legs. She states that she was not out of breath, but her legs did get large. She gained about 6 pounds. She was seen yesterday by her primary physician Dr. Leal, who directed her to the Emergency Room for admission. Currently, she feels reasonably well, but she still has significant peripheral edema. PAST MEDICAL HISTORY: Includes, 1. Coronary artery disease, status post 3-vessel bypass at [facility], 2011. 2. The patient maintained on warfarin, then switched to Pradaxa for time after her bypass surgery. The patient fell and had a head injury with an intracranial hemorrhage and anticoagulants were stopped. 3. Echocardiogram 01/28/2016. Mildly dilated left ventricle with global hypokinesis and severe septal hypokinesis, ejection fraction 35%, stage 2 left ventricular diastolic relaxation abnormalities. Marked left atrial enlargement with elevated left atrial pressures. Mitral annular calcification with decreased leaflet excursion consistent with low flow state, mild mitral insufficiency. 4. Pharmacologic stress test 01/29/2016, [facility]. Dilated left ventricle at stress and rest. Ejection fraction 50%, abnormal perfusion images demonstrating anteroapical myocardial infarction with juani-infarction ischemia compatible with multivessel disease. 5. Insulin-dependent diabetes mellitus. 6. Diabetic neuropathy and nephropathy. 7. Hypertension. 8. Hyperlipidemia. 9. Chronic renal insufficiency. 10. Lifetime nonsmoker. 11. Diabetic retinopathy treated with laser therapy. 12. Tonsillectomy, hiatal hernia and prolapsed uterus. [place], [place] REPORT OF CONSULTATION NAME: JANELLE NI UNIT #: [id number] ROOM: [facility] DOCTOR: SILVIO EARLY MD BIRTHDATE: [birth year] 13. Cardiac catheterization 02/06/2016, 99% left main with 99% ostial LAD stenosis and mid vessel occlusion, 100% ostial circumflex occlusion, 100% right coronary artery occlusion, internal mammary artery graft patent to the distal LAD, saphenous vein graft to the obtuse marginal patent, saphenous vein graft to the right coronary artery occluded. The patient managed medically. 14. Chronic home oxygen therapy since her catheterization. 15. Hospitalization 07/2016 with recurrent heart failure. 16. Echocardiogram 09/22/2016, dilated left ventricle, severe hypokinesis of the anterior wall and septum along with global hypokinesis everywhere else, ejection fraction 35%, stage 3 left ventricular diastolic relaxation abnormalities, mild mitral and tricuspid insufficiencies, moderate left atrial enlargement. 17. Placement of ICD by Dr. Mando Marti 05/15/2018, dual chamber [facility] ICD model number D152 device placed. REVIEW OF SYSTEMS: The patient denies diplopia or loss of vision. She denies syncope. She has been somewhat lightheaded. She denies nausea or vomiting. She denies fevers, chills, sweats or recent change in her medicines or diet. She does admit to a 6-pound weight gain in the last week. She denies nausea or vomiting. She denies hemoptysis or hematemesis. She denies productive cough. She has had slight orthopnea, but no PND. She denies hemoptysis or hematemesis. She denies any change in bowel or bladder habits and denies blood in her stools or urine. She has had swelling in her legs. She denies any skin rashes. Remainder of the review of systems is negative except as noted above. FAMILY HISTORY: Negative for early coronary disease. SOCIAL HISTORY: The patient does not currently smoke or consume significant amounts of alcohol. PHYSICAL EXAMINATION: GENERAL: The patient is a well-nourished white female who is awake, alert and oriented. VITAL SIGNS: Pulse is 60 and regular, blood pressure is 120/53. She is afebrile. NECK: Supple. She has no jugular distention. She does have hepatojugular reflux. Carotids are full. CHEST: Respirations are unlabored. Her chest is clear with decreased breath sounds at the bases. She has no wheezes or rales. She had no presacral edema or chest wall tenderness. HEART: Has a regular rhythm. She has a fourth heart sound. She has a very soft third heart sound. I heard no significant murmurs. The PMI was displaced slightly laterally. There was no precordial heave, lift or thrill. ABDOMEN: Soft and normally active without masses, organomegaly or bruits. EXTREMITIES: Showed 3+ pitting edema to above the knees. Pedal pulses were almost absent. ELECTROCARDIOGRAM: Shows an atrial paced rhythm with normal AV conduction. She does have evidence for left ventricular hypertrophy and an intraventricular conduction delay. [place], [place] REPORT OF CONSULTATION [facility]: [facility]: [id number] UNIT #: [id number] ROOM: [facility] DOCTOR: SILVIO EARLY MD BIRTHDATE: [birth year] LABORATORY DATA: Hemoglobin is 9.1, white count 6300 and platelet count 167,000. Sodium 141, potassium 4.4, chloride 107, CO2 29, BUN 38. IMPRESSION: 1. Acute exacerbation of chronic systolic congestive heart failure. 2. Status post recent implantable cardioverter-defibrillator placement for primary prevention of sudden cardiac in a patient with ischemic cardiomyopathy. 3. Insulin-dependent diabetes mellitus. 4. Diabetic neuropathy and nephropathy. 5. Essential hypertension. 6. Hyperlipidemia. 7. Chronic renal insufficiency, which exacerbates her heart failure. PLAN: We will titrate her medications up to achieve euvolemia and hopefully prevent further episodes of deterioration. Will have to be very gentle in our adjustments in order to avoid hypotension, worsening renal failure, etc. No other cardiac workup is indicated or planned at this time. [facility] and I thank Dr. Leal and Dr. Castle for asking our advice regarding the patient's care. SILVIO EARLY MD CM:CONSTR:REPORT OF CONSULTATION 1207 07/06/18 2238 interface
--- NOTE | ~2018-07-05 | PR ---
[place], [place] PROGRESS NOTE NAME: [facility] #[facility] [id number] UNIT #: [id number] ROOM: 502 DOCTOR: LUIZA REEVES MD BIRTHDATE: [birth year] DOS: 07/08/2018 SUBJECTIVE: The patient continues to feel better with treatment. OBJECTIVE: VITAL SIGNS: Blood pressure 128/58, heart rate 60 beats per minute, breathing 16 times per minute, temperature 98 degrees Fahrenheit. GENERAL APPEARANCE: The patient is alert and oriented x 3, in no visible distress, generalized weakness. HEENT AND NECK: Exam within normal limits. CARDIOVASCULAR SYSTEM: Heart rate is regular in rate and rhythm.S1 and S2 normally audible. LUNGS: Clear to auscultation. ABDOMEN: Soft, nontender. No obvious organomegaly. Bowel sounds are present. EXTREMITIES: Without significant cyanosis or edema. IMPRESSION: 1. The patient with acute systolic type congestive heart failure, continues to improve with diuresis. Even BUN and creatinine are improving. I will continue diuresis for one more day and hopefully be able to discharge her back tomorrow. 2. Minimal elevation of troponin I levels evaluated by Dr. Garcia and to be treated conservatively. 3. Chronic kidney disease stage 3b; chronic kidney failure, improving with diuresis. Electrolytes are being followed. 4. Coronary artery disease of the [place] vessels, without chest pain. 5. Obesity with BMI of 35.9. The patient is following with dietary. LUIZA REEVES MD CM:PNTRANS [id number] LUIZA REEVES MD 07/08/18 1610 interface
--- NOTE | ~2018-07-05 | DS ---
[place], [place] DISCHARGE SUMMARY NAME: JANELLE NI UNIT #: [id number] ROOM: 502 DOCTOR: LEANDRO MCNEILLLUIZA J BIRTHDATE: [birth year] DOS: 07/10/2018 DISCHARGE DIAGNOSES: 1. Acute systolic type congestive heart failure. 2. Chronic kidney disease stage 3B. 3. Coronary artery disease of [place] vessels. 4. Obesity with body mass index of 35.9. 5. Chronic constipation. 6. Vitamin D deficiency. 7. Mixed hyperlipidemia. 8. Type 2 diabetes mellitus. 9. Major depression, recurrent, mild. 10. Benign essential hypertension. HOSPITAL COURSE: The patient presented to the Emergency Department with increasing swelling in her legs pain and also increased shortness of breath. The patient's proBNP was elevated to 4200 and she was started on diuresis with IV Bumex, which she tolerated very well. The patient's BUN and creatinine actually improved with diuresis and creatinine came down to 1.5. The patient's potassium levels remain normal. The patient is breathing much better and her leg edema has resolved. The patient will be discharged to home on an increased dose of Bumex to follow up with PCP within a week. 1. Obesity, BMI of 35.9. The patient worked with dietary. She will work on her diet at home. 2. Benign essential hypertension, treated and controlled. 3. Coronary artery disease of the [place] vessels without chest pains. 4. The patient was found to have minimal elevation of cardiac enzymes, which were evaluated by Dr. Garcia. 5. Acute systolic type congestive heart failure, treated with diuresis as mentioned above, the patient is euvolemic now. Serum electrolytes today, BUN and creatinine of 42 and 1.5, otherwise normal serum electrolytes. Hemoglobin 8.6, white cell count of 5800, hemoglobin has been stable. Anemia of chronic disease. DISCHARGE MANAGEMENT: Bumex 2 mg orally b.i.d., Imdur 60 mg a day, Coreg 12.5 mg b.i.d., MiraLax 17 grams daily, Lantus insulin 45 units at bedtime and hydralazine 50 mg every 8 hours. [place], [place] DISCHARGE SUMMARY NAME: JANELLE NI UNIT #: [id number] ROOM: 502 DOCTOR: LUIZA REEVES MD BIRTHDATE: [birth year] LUIZA REEVES MD CM:JERAMY [id number] LUIZA REEVES MD 07/10/18 1442 interface
--- NOTE | ~2018-07-05 | WRIGHTHP ---
[place], [place] PATIENT HISTORY AND PHYSICAL EXAM NAME: JANELLE NI [facility] #: [id number] UNIT #: [id number] ROOM: 502 DOCTOR: LUIZA REEVES MD BIRTHDATE: [birth year] DOS: 07/05/2018 HISTORY OF PRESENT ILLNESS: The patient is a 68-year-old female with a past medical history of: 1. Chronic systolic type CHF. 2. Chronic stage IIIB kidney disease. 3. Coronary artery disease of [place] vessels. 4. Benign essential hypertension. 5. Major depression, recurrent, mild. 6. Type 2 diabetes mellitus. 7. Mixed hyperlipidemia. 8. Vitamin D deficiency. 9. Chronic constipation. The patient presented to the Emergency Department with a few day complaints of increasing swelling in her legs and increased shortness of breath. The patient found to be in acute congestive heart failure with elevated proBNP of 4200 and slightly elevated troponin I level of 0.128. The patient was given diuretic in the ER and then admitted to a monitored bed. No complaints of any chest pain, but she has increased shortness of breath, increased swelling in her legs. No nausea, vomiting, diarrhea or constipation. No dizziness or fainting episodes. SYSTEMS REVIEW: RESPIRATORY: Increased shortness of breath. GASTROINTESTINAL: No nausea, vomiting, diarrhea, constipation. CARDIOVASCULAR: No chest pains or palpitations but elevated troponin level. FAMILY HISTORY: Noncontributory. SOCIAL HISTORY: Denies smoking, cigarettes, alcohol and drug abuse. MEDICATIONS: Bumex, hydralazine, insulin, Coreg. ALLERGIES: No known drug allergies. PHYSICAL EXAMINATION: GENERAL: Alert and oriented x 3, no visible distress, moderately obese. HEENT AND NECK: Extraocular movements are intact. Sclerae are anicteric. Oral mucosa is moist and clean. No obvious facial weakness. Neck is supple without any lymphadenopathy. No thyromegaly. No JVD. No carotid arterial bruits. LUNGS: Clear to auscultation. No wheezing. No rhonchi. CARDIOVASCULAR SYSTEM: Heart rate is regular in rate and rhythm. S1 and S2 normally audible. No significant murmur or any other abnormal cardiac sounds. ABDOMEN: Soft, nontender. No obvious organomegaly. Bowel sounds are present. No obvious herniation. EXTREMITIES: 2+ leg and pedal edema. CENTRAL NERVOUS SYSTEM: Alert and oriented x 3. Cranial nerves II-XII are intact. Speech is normal. The patient is able to move all extremities. Normal muscle strength. Deep tendon reflexes are equal on both sides. Plantars were downgoing. [place], [place] PATIENT HISTORY AND PHYSICAL EXAM NAME: JANELLE NI [facility] #: [id number] UNIT #: [id number] ROOM: [facility] DOCTOR: LUIZA REEVES MD BIRTHDATE: [birth year] IMPRESSION: 1. The patient with acute over chronic systolic type congestive heart failure with increased shortness of breath and leg and pedal edema. The patient started on diuresis with IV Bumex and serum electrolytes will be monitored. 2. History of coronary artery disease of the [place] vessels with slight elevation of troponin I levels. I will repeat troponin levels and I have consulted her instrument fitter, Dr. Garcia, to see her. 3. Benign essential hypertension. Blood pressures to be monitored and treated. The patient to be continued on Coreg, hydralazine, and clonidine that she was taking at home. The patient also takes Imdur for her coronary artery disease and aspirin. 4. Obesity with a BMI of 35.9. The patient to work with dietary. LUIZA REEVES MD CM:HISPHYS:PATIENT HISTORY AND PHYSICAL EXAMINATION 10 36 LUIZA REEVES MD 07/05/181934 interface
--- NOTE | ~2018-07-05 | PR ---
[place], [place] PROGRESS NOTE NAME: JANELLE NI [facility] #: [id number] UNIT #: [id number] ROOM: 502 DOCTOR: LUIZA REEVES MD BIRTHDATE: [birth year] DOS: 07/09/2018 SUBJECTIVE: The patient continues to improve and her swelling in her legs is also improving along with shortness of breath. PHYSICAL EXAMINATION: VITAL SIGNS: Blood pressure 150/60, heart rate 60 beats per minute, breathing 17 times per minute, temperature 98 degrees Fahrenheit. GENERAL APPEARANCE: The patient is alert and oriented x 3, in no visible distress. HEENT AND NECK: Exam within normal limits. CARDIOVASCULAR SYSTEM: Heart rate is regular in rate and rhythm. S1 and S2 normally audible. LUNGS: Clear to auscultation. ABDOMEN: Soft, nontender. No obvious organomegaly. Bowel sounds are present. Obesity. EXTREMITIES: Without significant cyanosis or edema. 1+ leg and pedal edema. IMPRESSION: 1. Acute systolic type congestive heart failure, continues to improve with improving shortness of breath and leg edema. Hopefully, I can discharge her to home tomorrow morning. 2. Minimal elevation of troponin I levels evaluated by production line, Dr. Garcia. No more management recommended at this time. 3. Chronic kidney disease stage 3b with BUN and creatinine improved to 42 and 1.5 despite of diuresis. Serum electrolytes were monitored. 4. Coronary artery disease of the [place] vessels without chest pain. 5. Obesity with BMI of 35.9. The patient worked with [employer]. LUIZA REEVES MD CM:PNTRANS [id number] LUIZA REEVES MD 07/10/18 0153 interface
--- NOTE | ~2018-07-05 | PR ---
[place], [place] PROGRESS NOTE NAME: JANELLE NI [facility] #: [id number] UNIT #: [id number] ROOM: 502 DOCTOR: LUIZA REEVES MD BIRTHDATE: [birth year] DOS: 07/06/2018 SUBJECTIVE: The patient is breathing better, but she still has significant swelling in both legs. OBJECTIVE: GENERAL APPEARANCE: The patient is alert and oriented x 3, in no visible distress. VITAL SIGNS: Blood pressure 151/50, heart rate is 60 beats per minute, breathing 20 times per minute, temperature 98.6 degrees Fahrenheit. HEENT AND NECK: Exam within normal limits. CARDIOVASCULAR SYSTEM: Heart rate is regular in rate and rhythm. S1 and S2 normally audible. LUNGS: Clear to auscultation. ABDOMEN: Soft, nontender. No obvious organomegaly. Bowel sounds are present. EXTREMITIES: Without significant cyanosis. 2-3+ leg and pedal edema. IMPRESSION: 1. The patient with acute systolic type congestive heart failure maintaining a negative fluid balance with diuresis with IV Bumex. Dr. Garcia, the can line operator, is also following her. 2. History of coronary artery disease of [place] vessels without chest pains. 3. Slight elevation of troponin I levels for which Cardiology is evaluating her. 4. Benign essential hypertension with better controlled blood pressures. The patient remains on clonidine, hydralazine, and Coreg. 5. Obesity. The patient working with dietary. BMI of 35.9. LUIZA REEVES MD CM:PNTRANS [id number] LUIZA REEVES MD 07/07/18 0206 interface
--- NOTE | ~2018-07-05 | PR ---
[place], [place] PROGRESS NOTE [facility] [id number] UNIT #: [id number] ROOM: 502 DOCTOR: LUIZA REEVES MD BIRTHDATE: [birth year] DOS: 07/07/2018 SUBJECTIVE: The patient continues to improve on her breathing. She is less short of breath and leg swelling started improving also with diuresis. OBJECTIVE: GENERAL APPEARANCE: The patient is alert and oriented x 3, in no visible distress. VITAL SIGNS: Blood pressure 146/59, heart rate 68 beats per minute, breathing 16 times a minute, temperature 99 degrees Fahrenheit. HEENT AND NECK: Exam within normal limits. CARDIOVASCULAR SYSTEM: Heart rate is regular in rate and rhythm. S1 and S2 normally audible. LUNGS: Decreased breath sounds. ABDOMEN: Soft, nontender. No obvious organomegaly. Bowel sounds are present. EXTREMITIES: 2+ leg and pedal edema. IMPRESSION: 1. Acute systolic type congestive heart failure, continues to improve. BUN and creatinine 42 and 1.5. Interestingly, improving with diuresis. 2. Minimal elevation of troponin I levels to be treated conservatively by vice president mission integration, Dr. Garcia. 3. Chronic kidney disease with stage 3B chronic kidney failure. 4. Coronary artery disease of [place] vessels without any chest pains. 5. Obesity with BMI of 35.9. The patient is working on diet. LUIZA REEVES MD CM:PNTRANS 1002 1029 LUIZA REEVES MD 07/07/18 1027 interface
--- NOTE | ~2018-07-05 | EKG ---
[place], [place] ELECTROCARDIOGRAM REPORT NAME: JANELLE NI UNIT #: [id number] ROOM: 502 DOCTOR: DICKSON DRAFT REPORT BIRTHDATE: [birth year] [facility] Test Date: 2018-07-05 Test Time: 15:26:23 Pat Name: JANELLE NI Department: Room: [facility] Gender: F Jacket Preparer: SS RESP : 1950 Requested By: GERTRUDIS ELIZALDE Order Number: [id number] Reading MD: Ravi Garcia MD Measurements Intervals [place] Rate: 60 P: MD: 179 QRS: -31 QRSD: 125 T: 163 QT: 461 QTc: 461 Interpretive Statements Probable A-V sequential pacing Baseline wander in lead(s) V4,V5,V6 Compared to ECG 05/10/2018 18:13:22 Atrial pacing is now present Electronically Signed On 07-05-2018 19:19:17 PDT by Ravi Garcia MD CM:EKGRPT:ELECTROCARDIOGRAM REPORT [id number] 1919 GERTRUDIS CERVANTES DRAFT REPORT GERTRUDIS ELIZALDE DO
[2018-07-05 15:10] VITALS: BP 130/53
[2018-07-05 15:38] LABS: BASO % 0.3 % (0.0-1.0); EOS # 0.2 10*3/uL (0.0-0.4); HEMATOCRIT 27.8 % (37.0-47.0); HEMOGLOBIN 8.8 g/dl (12.0-16.0); LYMPH # 1.3 10*3/uL (1.3-4.4); MEAN CELL VOLUME 84.5 fl (81.0-99.0); MEAN CORPUSCULAR HGB 26.7 pg (27.0-31.0); MEAN CORPUSCULAR HGB CONC 31.7 g/dl (33.0-37.0); MEAN PLATELET VOLUME 10.8 fl (9.6-12.3); MONO # 0.5 10*3/uL (0.1-1.0); MONO % 8.2 % (3.0-9.0); NEUT # 4.3 10*3/uL (2.3-7.9); NEUT % 68.2 % (47.0-73.0); PLATELET COUNT AUTOMATED 172 10*3/uL (130-400); RED BLOOD COUNT 3.29 10*6/uL (4.10-5.10); RED CELL DISTRI WIDTH 16.1 % (0-14.5); WHITE BLOOD COUNT 6.4 10*3/uL (4.8-10.8)
[2018-07-05] MEDS ORDERED: BUMETANIDE2 MG PO (15:38)
[2018-07-05] MEDS ORDERED: CRESTOR5 MG PO ×2 (15:39→18:49)
[2018-07-05] MEDS ORDERED: IMDUR SA30 MG PO (15:39)
[2018-07-05 15:46] LABS: ACT PARTIAL THROMBO TIME 21.9 SECONDS (20.8-31.5); INTERNATIONAL NORM RATIO 1.1 (2.0-3.5)
[2018-07-05 15:53] LABS: ALBUMIN 3.1 gm/dl (3.1-4.5); CREATININE 1.67 mg/dL (0.55-1.02); POTASSIUM 4.2 mmol/L (3.5-5.1); TOTAL PROTEIN 7.3 gm/dL (6.4-8.2)
[2018-07-05 15:54] LABS: TROPONIN I 0.128 ng/ml (<0.045)
[2018-07-05 18:13] VITALS: BP 159/63
[2018-07-05 18:37] VITALS: BP 150/90; BP 174/70
[2018-07-05] MEDS ORDERED: ISOSORBIDE MONO30 MG PO (18:53)
[2018-07-05 18:54] VITALS: BP 150/90
[2018-07-05] MEDS ORDERED: GLUCOTROL10 MG PO (18:58)
[2018-07-05 20:00] VITALS: BP 168/81
[2018-07-06] VITALS: BP 155/52
[2018-07-06 08:00] VITALS: BP 120/53
[2018-07-06 08:03] LABS: BASO % 0.2 % (0.0-1.0); EOS # 0.2 10*3/uL (0.0-0.4); EOS % 2.5 % (1.0-4.0); HEMATOCRIT 29.2 % (37.0-47.0); HEMOGLOBIN 9.1 g/dl (12.0-16.0); LYMPH # 1.1 10*3/uL (1.3-4.4); LYMPH % 17.9 % (27.0-41.0); MEAN CELL VOLUME 84.4 fl (81.0-99.0); MEAN CORPUSCULAR HGB 26.3 pg (27.0-31.0); MEAN CORPUSCULAR HGB CONC 31.2 g/dl (33.0-37.0); MEAN PLATELET VOLUME 9.9 fl (9.6-12.3); MONO # 0.6 10*3/uL (0.1-1.0); MONO % 9.2 % (3.0-9.0); NEUT # 4.4 10*3/uL (2.3-7.9); NEUT % 69.9 % (47.0-73.0); PLATELET COUNT AUTOMATED 167 10*3/uL (130-400); RED BLOOD COUNT 3.46 10*6/uL (4.10-5.10); RED CELL DISTRI WIDTH 16.2 % (0-14.5); WHITE BLOOD COUNT 6.3 10*3/uL (4.8-10.8)
[2018-07-06 08:34] LABS: CREATININE 1.64 mg/dL (0.55-1.02); POTASSIUM 4.4 mmol/L (3.5-5.1)
[2018-07-06 12:00] VITALS: BP 130/50
[2018-07-06 16:00] VITALS: BP 151/50
[2018-07-06 20:00] VITALS: BP 163/61
[2018-07-07] VITALS: BP 146/59
[2018-07-07 06:28] LABS: CREATININE 1.53 mg/dL (0.55-1.02); POTASSIUM 3.9 mmol/L (3.5-5.1)
[2018-07-07 08:00] VITALS: BP 138/68
[2018-07-07 12:00] VITALS: BP 110/62
[2018-07-07 16:00] VITALS: BP 116/74
[2018-07-07 20:00] VITALS: BP 136/84
[2018-07-08] VITALS: BP 131/46; BP 132/68
[2018-07-08 06:22] LABS: BASO % 0.2 % (0.0-1.0); EOS # 0.2 10*3/uL (0.0-0.4); HEMATOCRIT 27.7 % (37.0-47.0); HEMOGLOBIN 8.6 g/dl (12.0-16.0); LYMPH # 1.4 10*3/uL (1.3-4.4); LYMPH % 23.3 % (27.0-41.0); MEAN CELL VOLUME 83.4 fl (81.0-99.0); MEAN CORPUSCULAR HGB 25.9 pg (27.0-31.0); MEAN PLATELET VOLUME 11.2 fl (9.6-12.3); MONO # 0.6 10*3/uL (0.1-1.0); NEUT # 3.6 10*3/uL (2.3-7.9); NEUT % 61.3 % (47.0-73.0); PLATELET COUNT AUTOMATED 178 10*3/uL (130-400); RED BLOOD COUNT 3.32 10*6/uL (4.10-5.10); RED CELL DISTRI WIDTH 16.1 % (0-14.5); WHITE BLOOD COUNT 5.8 10*3/uL (4.8-10.8)
[2018-07-08 06:43] LABS: CREATININE 1.51 mg/dL (0.55-1.02)
[2018-07-08 08:00] VITALS: BP 126/64
[2018-07-08 12:00] VITALS: BP 128/58
[2018-07-08 16:00] VITALS: BP 131/59
[2018-07-08 20:00] VITALS: BP 142/50
[2018-07-09] VITALS: BP 125/39; BP 126/60
[2018-07-09 05:15] VITALS: BP 136/72
[2018-07-09 12:00] VITALS: BP 131/53
[2018-07-09 16:00] VITALS: BP 150/60
[2018-07-09 20:00] VITALS: BP 118/77; BP 138/71
[2018-07-10] VITALS: BP 115/35
[2018-07-10 08:00] VITALS: BP 120/48
[2018-07-10] MEDS ORDERED: BUMETANIDE2 MG PO (11:14)
[2018-07-10] MEDS ORDERED: IMDUR SA60 M1 PO (11:21)
== END 2018-07-10 12:48 | disposition home or self-care (01) | DRG 291 ==
LOC: ED 15:09 → 5E 17:09 → EDHOLD 17:09 → 5E 18:17
PROVIDERS: Emergency Medicine; Internal Medicine
DX: I13.0 Hypertensive heart and chronic kidney disease with heart failure and stage 1 through stage 4 chronic kidney disease, or unspecified chronic kidney disease (principal); I50.23 Acute on chronic systolic (congestive) heart failure; F33.0 Major depressive disorder, recurrent, mild; E11.22 Type 2 diabetes mellitus with diabetic chronic kidney disease; N18.3 Chronic kidney disease, stage 3 (moderate); E11.65 Type 2 diabetes mellitus with hyperglycemia; I25.10 Atherosclerotic heart disease of native coronary artery without angina pectoris; E11.40 Type 2 diabetes mellitus with diabetic neuropathy, unspecified; E11.21 Type 2 diabetes mellitus with diabetic nephropathy; I25.5 Ischemic cardiomyopathy; E11.319 Type 2 diabetes mellitus with unspecified diabetic retinopathy without macular edema; K59.09 Other constipation; E55.9 Vitamin D deficiency, unspecified; E66.9 Obesity, unspecified; E78.2 Mixed hyperlipidemia; Z68.35 Body mass index [BMI] 35.0-35.9, adult; I25.2 Old myocardial infarction; Z95.1 Presence of aortocoronary bypass graft; Z82.49 Family history of ischemic heart disease and other diseases of the circulatory system; Z83.3 Family history of diabetes mellitus; Z80.8 Family history of malignant neoplasm of other organs or systems; Z95.810 Presence of automatic (implantable) cardiac defibrillator

== ENCOUNTER 2018-10-02 16:14 | Inpatient (IN) | payer MEDICARE ==
[~2018-10-02] VITALS: Ht 162.5 cm; Wt 95.5 kg
--- NOTE | ~2018-10-02 | WRIGHTHP ---
[place], [place] PATIENT HISTORY AND PHYSICAL EXAM NAME: JANELLE NI [facility] #: [id number] UNIT #: [id number] ROOM: 421 DOCTOR: VIOLETA PERRY MD BIRTHDATE: [birth year] DOS: HISTORY OF PRESENT ILLNESS: This patient is 68 years old. The patient has multiple admissions to the hospital. States that she was out in about yesterday paying bills. By afternoon, she started complaining of increasing shortness of breath. The patient states that she has not felt that way since the AICD pacemaker was placed a few weeks ago. She denies having any chest pains or palpitations, does not have any abdominal pain, nausea, any emesis. Does not have any swelling in the legs. She arrived to the Emergency Room with the above-mentioned complaints and was diagnosed with COPD exacerbation and was admitted by the ER staff. The patient states that she has not had a history of COPD, has never been a smoker, has just had a cough, which is productive of scant amounts of sputum. PAST MEDICAL HISTORY: Significant for 1. Cardiomyopathy, ejection fraction of 40% with history of recent AICD pacemaker placement. 2. Multiple hospitalizations for systolic congestive heart failure. 3. Chronic kidney disease stage 3. 4. Benign hypertension. 5. Type 2 diabetes mellitus, insulin-dependent. 6. Coronary artery disease of [place] coronaries, the last hospitalization July 2018 with shortness of breath. MEDICATIONS: Aspirin 81 daily, Bumex 2 mg daily, Rocaltrol 0.25 mcg daily, Coreg 6.25 b.i.d., citalopram 20 daily, glipizide 10 daily, hydralazine 50 q.8, isosorbide 60 daily, rosuvastatin 5 mg at bedtime, insulin Lantus 30 units subQ at bedtime. SOCIAL HISTORY: Nonsmoker, does not use any alcohol. Lives at home. PHYSICAL EXAMINATION: GENERAL: She is awake and alert and oriented, mild respiratory distress. VITAL SIGNS: Graphic trend shows pressure 131/49, pulse of 68, respirations 20, temperature 97.8. LUNGS: Diminished breath sounds. HEART: Regular. ABDOMEN: Obese, soft, nontender with a large ventral hernia present. EXTREMITIES: Without any edema. LABORATORY DATA: Lactic acid is normal. WBC count is normal, hemoglobin and hematocrit 9.7/30.5, platelet 176. Electrocardiogram shows a paced rhythm. Comprehensive glucose 374, BUN 42, creatinine 2.0. Sodium 138, potassium 4.3, chloride 102, bicarbonate 26, lipase 497. C-reactive protein 1.07. Troponin was normal. ASSESSMENT AND PLAN: 1. The patient presents with shortness of breath, was diagnosed with exacerbation of COPD, but the patient claims that she has never smoked and does not have a history of COPD. The patient has a slight cough and is productive of [place], [place] PATIENT HISTORY AND PHYSICAL EXAM NAME: JANELLE NI [facility] #: [id number] UNIT #: [id number] ROOM: [facility] DOCTOR: VIOLETA PERRY MD BIRTHDATE: [birth year] scant amounts of sputum, so we will go ahead and arrange for a CT of the chest to rule out underlying infectious process. One dose of steroids was given and breathing treatments were started along with azithromycin. She will continue. 2. Type 2 diabetes mellitus, insulin-dependent with hyperglycemia. The patient's blood sugars went pretty high after steroids were started in the 500s and this morning she has become slightly acidotic with a widened anion gap. The patient will have an acetone level ordered and hydration will be started with some bicarbonate in the IV. Once the acetone is normal, discontinue the bicarbonate and IV fluids in a few hours. 3. Recent AICD pacemaker placement with cardiomyopathy. Avoid over hydration because of her increased susceptibility of going into CHF which she is currently not in. VIOLETA PERRY MD CM:HISPHYS:PATIENT HISTORY AND PHYSICAL EXAMINATION [phone] VIOLETA PERRY MD 10/03/18 1017 interface
--- NOTE | ~2018-10-02 | DS ---
[place], [place] DISCHARGE SUMMARY NAME: JANELLE NI [facility] #: [id number] UNIT #: [id number] ROOM: 421 DOCTOR: VIOLETA PERRY MD BIRTHDATE: [birth year] DOS: 10/04/2018 DIAGNOSES: 1. Shortness of breath from cardiomyopathy. 2. Cardiomyopathy, ejection fraction 40%, compensated. No evidence of congestive heart failure. 3. Coronary artery disease with history of coronary artery bypass graft. 4. Automatic implantable cardioverter defibrillator pacemaker placement. 5. Large umbilical hernia with a portion of the stomach and the liver. 6. Type 2 diabetes mellitus with hypoglycemia. 7. Hypertension. HOSPITAL COURSE: This patient is not known to me, comes in with complaints of difficulty breathing. Medications are the same as in admission. Exercise oximetry pending. The patient is not known to me, comes in with complaints of difficulty breathing. The patient was doing her errands when she noticed her shortness of breath was getting worse, she came into the Emergency Room. Chest x-ray did not show a CHF. The patient was admitted. Saturations remained in the low 90s. A CT of the chest was done, which did not show any pathology other than a large ventral hernia with a loop of bowel as well as liver in it. The patient improved without any new problems. Rule out MD protocol was negative. She has diuresed with the Bumex and remained stable. Exercise oximetry will be done today. If it is positive, we will arrange for oxygen and if it is negative, the patient will be discharged home to be followed up as an outpatient. Her blood sugars have been slightly on the high side because she received IV Solu-Medrol. This has come down. She did not have any evidence of diabetic ketoacidosis. VIOLETA PERRY MD CM:JERAMY [id number] VIOLETA PERRY MD 10/04/18 1551 interface
--- NOTE | ~2018-10-02 | EKG ---
[place], [place] ELECTROCARDIOGRAM REPORT NAME: JANELLE NI UNIT #: [id number] ROOM: 421 DOCTOR: DICKSON DRAFT REPORT BIRTHDATE: [address] [facility] Test Date: 2018-10-02 Test Time: 16:59:03 Pat Name: JANELLE NI Department: Room: 421 Gender: F Admission Discharge Rn: EVELYN : 1950 Requested By: DIMITRI BRIZUELA Order Number: [id number] Reading MD: Rosanna Brewer MD Measurements Intervals [place] Rate: 60 P: OK: 196 QRS: -19 QRSD: 128 T: 188 QT: 466 QTc: 466 Interpretive Statements Atrial-paced complexes Left bundle branch block Baseline wander in lead(s) V6 Compared to ECG 07/05/2018 15:26:23 No change Electronically Signed On 10-04-2018 7:30:48 PST by Rosanna Brewer MD CM:EKGRPT:ELECTROCARDIOGRAM REPORT 0730 DIMITRI BRIZUELA EPIPHANY DRAFT REPORT DIMITRI BRIZUELA
--- NOTE | ~2018-10-02 | PR ---
[place], [place] PROGRESS NOTE NAME: JANELLE NI [facility] #: [id number] UNIT #: [id number] ROOM: 421 DOCTOR: VIOLETA PERRY MD BIRTHDATE: [birth year] DOS: 10/04/2018 SUBJECTIVE: The patient is feeling much better except for occasional shortness of breath. She does not have any chest pains or palpitations. OBJECTIVE: VITAL SIGNS: Graphic trend shows pressure 130/60, pulse of 70, respirations 18, temperature 97.8. LUNGS: Clear. HEART: Regular. ABDOMEN: Obese, soft, nontender with a large ventral hernia. EXTREMITIES: Without any edema. A CT of the chest does not show any acute thoracic process. No emphysema was detected. A supraumbilical hernia with a portion of the stomach and hepatic lobe was noted along with cardiomegaly. Ketone was negative. Blood sugar 189 this morning. ASSESSMENT AND PLAN: 1. The patient admitted with shortness of breath, possibly from underlying cardiomyopathy, but the patient did not appear to be in congestive heart failure and the CT scan was negative. 2. Coronary artery disease with history of coronary artery bypass graft 5 years ago with cardiomyopathy with automatic implantable cardioverter-defibrillator pacemaker placement. Enzymes were negative, ruling out myocardial infarction. Exercise oximetry will be done today. 3. Type 2 diabetes mellitus with hyperglycemia. Acetone was negative. VIOLETA PERRY MD CM:PNTRANS [phone] VIOLETA PERRY MD 10/04/18 2339 interface
[~2018-10-02 16:14] MED LIST changes: +CRESTOR5 MG PO; +ISOSORBIDE MONO30 MG PO
[2018-10-02 16:15] VITALS: BP 121/42
[2018-10-02 16:54] LABS: BASO % 0.3 % (0.0-1.0); EOS # 0.1 10*3/uL (0.0-0.4); HEMATOCRIT 30.5 % (37.0-47.0); HEMOGLOBIN 9.7 g/dl (12.0-16.0); LYMPH # 1.1 10*3/uL (1.3-4.4); LYMPH % 17.3 % (27.0-41.0); MEAN CELL VOLUME 85.9 fl (81.0-99.0); MEAN CORPUSCULAR HGB 27.3 pg (27.0-31.0); MEAN CORPUSCULAR HGB CONC 31.8 g/dl (33.0-37.0); MEAN PLATELET VOLUME 10.6 fl (9.6-12.3); MONO # 0.5 10*3/uL (0.1-1.0); MONO % 7.5 % (3.0-9.0); NEUT # 4.7 10*3/uL (2.3-7.9); NEUT % 72.6 % (47.0-73.0); PLATELET COUNT AUTOMATED 176 10*3/uL (130-400); RED BLOOD COUNT 3.55 10*6/uL (4.10-5.10); RED CELL DISTRI WIDTH 14.6 % (0-14.5); WHITE BLOOD COUNT 6.4 10*3/uL (4.8-10.8)
[2018-10-02 17:09] LABS: ALBUMIN 3.3 gm/dl (3.1-4.5); POTASSIUM 4.3 mmol/L (3.5-5.1); TROPONIN I 0.019 ng/ml (<0.045)
[2018-10-02 19:50] VITALS: BP 177/69
[2018-10-02 20:00] VITALS: BP 177/69
[2018-10-02] MEDS ORDERED: BUMETANIDE2 MG PO (20:45)
[2018-10-02] MEDS ORDERED: IMDUR SA60 M1 PO (20:46)
[2018-10-03] VITALS: BP 131/49
[2018-10-03 02:05] LABS: CREATININE 2.13 mg/dL (0.55-1.02); POTASSIUM 4.2 mmol/L (3.5-5.1)
[2018-10-03 04:00] VITALS: BP 130/60
[2018-10-03 06:49] LABS: CREATININE 2.07 mg/dL (0.55-1.02); POTASSIUM 4.1 mmol/L (3.5-5.1)
[2018-10-03 12:00] VITALS: BP 144/58
[2018-10-03 16:00] VITALS: BP 154/68
[2018-10-03 20:00] VITALS: BP 152/66
[2018-10-04] VITALS: BP 119/56
[2018-10-04 08:00] VITALS: BP 130/60
[2018-10-04] MEDS ORDERED: CEFUROXIME AXE250 MG PO (08:25)
== END 2018-10-04 12:10 | disposition home or self-care (01) | DRG 191 ==
LOC: ED 16:14 → EDHOLD 18:40 → 4E 18:40
PROVIDERS: Internal Medicine; Nurse Practitioner Family
DX: J44.1 Chronic obstructive pulmonary disease with (acute) exacerbation (principal); E87.2 Acidosis; I42.9 Cardiomyopathy, unspecified; I13.0 Hypertensive heart and chronic kidney disease with heart failure and stage 1 through stage 4 chronic kidney disease, or unspecified chronic kidney disease; I25.10 Atherosclerotic heart disease of native coronary artery without angina pectoris; I50.9 Heart failure, unspecified; K42.9 Umbilical hernia without obstruction or gangrene; E11.65 Type 2 diabetes mellitus with hyperglycemia; K43.9 Ventral hernia without obstruction or gangrene; T38.0X5A Adverse effect of glucocorticoids and synthetic analogues, initial encounter; E11.22 Type 2 diabetes mellitus with diabetic chronic kidney disease; N18.3 Chronic kidney disease, stage 3 (moderate); Z95.1 Presence of aortocoronary bypass graft; Z95.810 Presence of automatic (implantable) cardiac defibrillator; Y92.89 Other specified places as the place of occurrence of the external cause; I25.2 Old myocardial infarction; Z82.49 Family history of ischemic heart disease and other diseases of the circulatory system; Z83.3 Family history of diabetes mellitus

== ENCOUNTER 2019-01-25 09:04 | Inpatient (IN) | payer MEDICARE ==
[~2019-01-25] VITALS: Ht 162.5 cm; Wt 111.8 kg
--- NOTE | ~2019-01-25 | PR ---
[place], [place] PROGRESS NOTE NAME: JANELLE NI UNIT #: [id number] ROOM: 532 DOCTOR: LUIZA REEVES MD BIRTHDATE: [birth year] DOS: 02/04/2019 The patient's right heel pains are controlled. Blood pressure 117/60, afebrile, breathing 16 times a minute, heart rate of 73 beats per minute. The patient is status post right heel incision and drainage. Recommended treatment with ertapenem by ID specialist. workforce services representative make arrangements for discharge. IMPRESSION: 1. Diabetic nephropathy and stage 3b chronic kidney disease. 2. Type 2 diabetes mellitus. Blood sugars are monitored and treated. 3. Right foot pains are reasonably controlled. 4. Peripheral arterial disease, mild to moderate, evaluated by Dr. Lucas. LUIZA REEVES MD CM:PNTRANS 1720 [id number] LUIZA REEVES MD 02/05/19 0418 interface
--- NOTE | ~2019-01-25 | PR ---
[place], [place] PROGRESS NOTE NAME: [facility] [id number] UN[facility] #: [id number] ROOM: 532 DOCTOR: LUIZA REEVES MD BIRTHDATE: [birth year] DOS: 02/02/2019 SUBJECTIVE: The patient is waiting for arrangement of antibiotics after discharge from the hospital. OBJECTIVE: GENERAL APPEARANCE: The patient is alert and oriented x 3, in no visible distress. VITAL SIGNS: Blood pressure 134/72, heart rate of 69 beats per minute, breathing 20 times per minute, temperature 98.2 degrees Fahrenheit. HEENT AND NECK: Exam within normal limits. CARDIOVASCULAR SYSTEM: Heart rate is regular in rate and rhythm. S1 and S2 normally audible. LUNGS: Clear to auscultation. ABDOMEN: Soft, nontender. No obvious organomegaly. Bowel sounds are present. EXTREMITIES: Wound dressing on the left foot. IMPRESSION: 1. The patient is status post incision and drainage of the right heel abscess with wound VAC in place and is being treated with antibiotics and requires meropenem for 6 weeks. shipping services sales representative are arranging for antibiotics after discharge. 2. Diabetic nephropathy, chronic kidney disease stage 3b. 3. Iron-deficiency anemia. Hemoglobin was 7.8. 4. Right foot pain is better controlled with Vicodin now, increased dose. 5. Peripheral arterial disease, mild to moderate, evaluated by Dr. Lucas. LUIZA REEVES MD CM:PNTRANS [phone] LUIZA REEVES MD 02/02/19 1639 interface
--- NOTE | ~2019-01-25 | PR ---
[place], [place] PROGRESS NOTE [id number] #: [id number] ROOM: 532 DOCTOR: VIOLETA PERRY MD BIRTHDATE: [birth year] DOS: 02/11/2019 SUBJECTIVE: The patient states that she feels the same, sounds much worse this morning. She has very moist sounding audible wheezes. She received a breathing treatment and did not get any better after that. The CT of the chest showed patchy opacities bilaterally suggestive of pneumonia. OBJECTIVE: VITAL SIGNS: Graphic trend shows a pressure 156/89, pulse of 69, respirations 18, and temperature 97.7. LUNGS: Diminished breath sounds, scattered wheezes and rhonchi. HEART: Regular. ABDOMEN: Obese, soft. EXTREMITIES: Without any edema. Right foot at the wound was not examined today. ASSESSMENT AND PLAN: 1. Shortness of breath with CT of the chest showing multifocal pneumonia, on IV antibiotics. Dr. Odom could do a bronchoscopy on the patient. 2. Osteomyelitis of right heel, on IV antibiotics. The patient may benefit from placement to Acuity. 3. Benign hypertension. 4. Cardiomyopathy dilated, already on high dose of diuretics. VIOLETA PERRY MD CM:PNTRANS 3 08 VIOLETA PERRY MD 02/11/192207 interface
--- NOTE | ~2019-01-25 | PR ---
[place], [place] PROGRESS NOTE [id number] #: [id number] ROOM: 532 DOCTOR: LUIZA REEVES MD BIRTHDATE: [birth year] DOS: 01/30/2019 SUBJECTIVE: The patient is breathing somewhat better and also her right foot pains are significantly better after she was started on Dilaudid and she was given Dilaudid yesterday and increased dose of Vicodin. The patient says she slept better at night. OBJECTIVE: VITAL SIGNS: Blood pressure 102/56, heart rate 68 beats per minute, breathing 20 times per minute, temperature 98.7 degrees Fahrenheit. GENERAL APPEARANCE: The patient is alert and oriented x 3, in no visible distress. HEENT AND NECK: Exam within normal limits. CARDIOVASCULAR SYSTEM: Heart rate is regular in rate and rhythm. S1 and S2 normally audible. LUNGS: Clear to auscultation. ABDOMEN: Soft, nontender. No obvious organomegaly. Bowel sounds are present. EXTREMITIES: Without significant cyanosis or edema. IMPRESSION AND PLAN: 1. The patient is status post drainage and possible foreign body removal from the right heel with improved pain control with Vicodin now. The patient is much more comfortable she says. 2. Peripheral vascular disease with toem-jt-lyffvmdk stenosis, being evaluated by Dr. Lucas. 3. Diabetic nephropathy and chronic kidney disease stage 3b with diabetic nephropathy. 4. Iron deficiency anemia. Hemoglobin was 7.8 and iron low at 25, being replaced. LUIZA REEVES MD CM:PNTRANS 1725 05 LUIZA REEVES MD 01/30/192204 interface
--- NOTE | ~2019-01-25 | PR ---
[place], [place] PROGRESS NOTE NAME: JANELLE NI UNIT #: [id number] ROOM: 532 DOCTOR: LUIZA REEVES MD BIRTHDATE: [birth year] DOS: SUBJECTIVE: The patient continues to feel better, now realizing that she cannot go home and live by herself and be able to take care of her wound and IV antibiotics and she is agreeing to go to rehab and [facility]. OBJECTIVE: GENERAL APPEARANCE: The patient is alert and oriented x 3, in no visible distress. VITAL SIGNS: Blood pressure 143/72, heart rate of 73 beats per minute, breathing 18 times per minute, afebrile, 97.4. HEENT AND NECK: Exam within normal limits. CARDIOVASCULAR SYSTEM: Heart rate is regular in rate and rhythm. S1 and S2 normally audible. LUNGS: Clear to auscultation. ABDOMEN: Soft, nontender. No obvious organomegaly. Bowel sounds are present. EXTREMITIES: Right heel dressing after incision and drainage, which is being followed by Podiatry. Without significant cyanosis or edema. IMPRESSION: 1. The patient requires 6 weeks of antibiotics per Infectious Disease specialist. 2. Type 2 diabetes mellitus. Blood sugars being monitored and controlled. 3. Diabetic nephropathy, chronic kidney disease. 4. Peripheral arterial disease, mild to moderate, evaluated by Dr. uLcas. 5. Iron deficiency anemia treated with supplements. 6. Benign essential hypertension, treated and controlled. 7. Coronary artery disease of [place] vessels without chest pain. 8. Abscess and infection, treated with IV Zosyn. LUIZA REEVES MD CM:PNTRANS 1803 45 LUIZA REEVES MD 02/07/19 2345 interface
--- NOTE | ~2019-01-25 | PR ---
[place], [place] PROGRESS NOTE NAME: JANELLE NI [facility] #: [id number] UNIT #: [id number] ROOM: 532 DOCTOR: PRUDENCIO ROLAND DPM BIRTHDATE: [birth year] DOS: 02/06/2019 SUBJECTIVE: The patient was seen for followup of post I and D, right heel. The patient is resting comfortably in bed without acute discomfort. OBJECTIVE FINDINGS: Capillary fill time normal to all digits of the right foot. The wound, plantar aspect of right foot reveals no signs of purulent drainage or foul odor. No return of abscess. Decreased maceration. ASSESSMENT: Postop right heel. PLAN: Continue local wound care, antibiotics per Infectious Disease. We will reassess the patient tomorrow if she is still in-house. PRUDENCIO ROLAND DPM CM:M[place] [phone] PRUDENCIO ROLAND DPM 02/06/19 2337 interface
--- NOTE | ~2019-01-25 | O ---
[place], [place] OPERATIVE NOTE NAME: JANELLE NI UNIT #: [id number] ROOM: 532 DOCTOR: GIOVANNY ASIF DPM BIRTHDATE: [birth year] DOS: 01/29/2019 SURGEON: Giovanny Asif DPM PLATE MOLDER: Naveen Boyd, PGY-1. PREOPERATIVE DIAGNOSIS: Abscess, plantar right heel with possible foreign body. POSTOPERATIVE DIAGNOSIS: Abscess, plantar right heel with possible foreign body. PROCEDURE: Incision and drainage of soft tissue abscess, plantar right heel with possible removal of foreign body. ESTIMATED BLOOD LOSS: Less than 5 mL. ANESTHESIA: LMAC. INJECTABLES: 10 mL of 0.5% Marcaine plain in a field block fashion, right heel. PATHOLOGY: Soft tissue for path evaluation, possible foreign body, sent soft tissue cultures as well. COMPLICATIONS: None. DESCRIPTION OF PROCEDURE: After appropriate preoperative evaluation, the patient was brought in the OR and placed on table in supine position. Attention was directed to the plantar surface of the right heel where there was noted to be a small ulceration with localized erythema, fluctuance and edema about 4 cm around the ulceration. Next, anesthesia was administered per anesthesia record and the area was injected with 10 mL of 0.5% Marcaine plain in a field block fashion. The area was prepped and draped in usual sterile manner. Right foot was lowered to surgical field. Attention was directed to the plantar surface of the right area where there was noted to be a small ulceration or entrance wound for foreign body. Next, using a #15 blade, a transverse incision was made on each side of the ulceration totaling about 4 cm in length. Dissection was carried down and there was found to be an abscess noted. There was about 2-3 mL of purulent drainage with significant malodor of the purulence. Next, a rongeur as well as 15 blade and pickup was used to remove some black necrotic tissue that was within the site. There was a suspicious area for foreign body, a firm black cylindrical object but unsure if it was an actual foreign body or just the devitalized tissue. Once the area was clean and the abscess was drained, cultures were taken of the area. Please note this was inferior to bone. Bone was not palpable at this time. A culture will be sent for Gram stain, aerobic and anaerobic, acid fast. Next, using a pulse pottery decoration designer, 3 liters of normal saline was flushed through the wound. A half-inch plain Nu Gauze packing, 4 x 4s, ABD, Kerlix and Adrian wrap was applied for postoperative bandage. The patient tolerated procedure and anesthesia well and left the OR with vital signs stable and intact and transferred to recovery room. The patient is to follow up tomorrow for reevaluation of the wound. [place], [place] OPERATIVE NOTE NAME: JANELLE NI UNIT #: [id number] ROOM: 532 DOCTOR: GIOVANNY ASIF DPM BIRTHDATE: [birth year] GIOVANNY ASIF DPM CM:OPRECORD:OPERATIVE NOTE [phone] GIOVANNY ASIF DPM 01/29/19 1330 interface
--- NOTE | ~2019-01-25 | DS ---
[place], [place] DISCHARGE SUMMARY NAME: JANELLE NI UNIT #: [id number] ROOM: 532 DOCTOR: LEANDRO MCNEILLLUIZA Euceda BIRTHDATE: [birth year] DOS: 02/13/2019 DISCHARGE DIAGNOSES: 1. Osteomyelitis involving heel of the right foot, ertapenem 500 mg IV daily for 5 weeks. 2. Drainage of abscess from the right heel. 3. Type 2 diabetes mellitus. 4. Diabetic nephropathy. 5. Stage 3b chronic kidney disease. 6. Peripheral arterial disease, mild to moderate, evaluated by Dr. Lucas. 7. Iron deficiency anemia. 8. Benign essential hypertension. 9. Acute over chronic systolic type congestive heart failure. 10. Coronary artery disease of the [place] vessel and coronary artery bypass grafts. 11. Automatic implantable cardiac defibrillator and pacemaker placement. 12. Obesity. HOSPITAL COURSE: The patient presented with increased shortness of breath, wheezing, right heel abscess, which was drained and the patient was suspected to have right heel osteomyelitis, recommended 6 weeks of IV antibiotics by Dr. Eli, the Infectious Disease specialist. Acute over chronic systolic type congestive heart failure with persistent shortness of breath and wheezing, treated by Cardiology and also the patient received IV Bumex with some improvement in chronic leg and pedal edema, which was treated with leg elevation and compression socks and Podiatry followed the patient for her foot wound. The patient's right heel underwent incision and drainage. Acute exacerbation of COPD with persistent wheezing was treated with antibiotics, corticosteroids and oxygen. Dr. Odom, the pipe organ technician followed her during her stay at the hospital. The patient was treated with IV Zosyn. Coronary artery disease of the [place] vessels, treated with isosorbide. Cardiac enzymes were negative. Chronic constipation, treated and controlled with MiraLax. The patient is moving her bowels. Type 2 diabetes mellitus. Blood sugars monitored and treated. The patient remained on glipizide. Benign essential hypertension, treated with hydralazine, blood pressure were monitored and controlled. BUN and creatinine 67 and 1.7. Normal serum electrolytes. Moderate protein-calorie malnutrition, albumin level of 2.4, hemoglobin 8.7. The patient chronically ill with multiple medical issues and suboptimal [place], [place] DISCHARGE SUMMARY NAME: JANELLE NI UNIT #: [id number] ROOM: [facility] DOCTOR: LEANDRO MCNEILL,LUIZA Euceda BIRTHDATE: [birth year] long-term prognosis, is heading to [facility] for continued antibiotics and physical therapy, which she requires. The patient has been clearly informed that she is not safe to be discharged to home in her present health status. DISCHARGE MANAGEMENT: Ertapenem 500 mg daily for 5 weeks, Medrol Dosepak, Protonix 40 mg a day, DuoNeb q.i.d., Coreg 12.5 mg b.i.d., ferrex 150 mg every other day, citalopram 20 mg daily, glipizide 10 mg daily, hydralazine 50 mg a day, MiraLax 17 grams daily, Bumex 2 mg a day, Lantus insulin 30 units subcutaneous daily, isosorbide 60 mg b.i.d., Tylenol p.r.n. LUIZA REEVES MD CM:DISCHSHARI 1808 45 LUIZA REEVES MD 02/13/19 1845 interface
--- NOTE | ~2019-01-25 | CON ---
[place], [place] REPORT OF CONSULTATION NAME: JANELLE NI UNIT #: [id number] ROOM: 532 DOCTOR: AHSAN MCNEILL [facility],GONZALES BIRTHDATE: [birth year] DOS: 01/30/2019 CARDIOLOGY CONSULTATION HISTORY OF PRESENT ILLNESS: The patient came in with right foot partial amputation with severe peripheral arterial disease and the patient has a history of intervention done in the past. Bilateral peripheral arterial disease is most symptomatic, appears to be [place] class 5. PHYSICAL EXAMINATION: GENERAL: The patient is alert, responding well. LUNGS: Diminished breath sounds at bases. HEART: S1, S2 regular. ABDOMEN: Soft. EXTREMITIES: Diminished pulses on both lower extremities and more so below the knee. IMPRESSION: The patient's peripheral arterial study shows left side may have inlet vessel disease, probably micro access and the common femoral access under both left and right as well as significant disease below the knee and since the wound on the right side, consideration should be close attention below the knee and try to open if there are many vessels as possible and at the same time look at the inlet vessels and if anything critical, stenosis should be intervened appropriately. Options of procedures, complications, evhk-sq-tpnksevz risk is explained and we will check with the hospitalist and also the podiatry department since the wound is there and if improve the perfusion, may wound heal better and do the further evaluation and possible revascularization. GONZALES FOREMAN MD CM:CONSTR:REPORT OF CONSULTATION 1348 02/22/19 1618 interface
--- NOTE | ~2019-01-25 | PR ---
[place], [place] PROGRESS NOTE NAME: JANELLE NI UNIT #: [id number] ROOM: 532 DOCTOR: LUIZA REEVES MD BIRTHDATE: [birth year] DOS: 01/31/2019 SUBJECTIVE: The patient's foot pains have improved. OBJECTIVE: GENERAL APPEARANCE: The patient is alert and oriented x 3, in no visible distress. VITAL SIGNS: Blood pressure 102/50, heart rate 69 beats per minute, breathing 20 times per minute, temperature 98.1 degrees Fahrenheit. HEENT AND NECK: Exam within normal limits. CARDIOVASCULAR SYSTEM: Heart rate is regular in rate and rhythm. S1 and S2 normally audible. LUNGS: Clear to auscultation. ABDOMEN: Soft, nontender. No obvious organomegaly. Bowel sounds are present. EXTREMITIES: Foot dressing in place over the right foot and heel. IMPRESSION: 1. The patient is status post drainage and possible foreign body removal from the right heel, waiting for wound VAC. Dr. Matthews is following. 2. Right foot pain after surgery, reasonably controlled with Vicodin increased dose. 3. Peripheral arterial disease, hnqa-nw-adbbqimp, being evaluated by Dr. Lucas. 4. Diabetic nephropathy and chronic kidney disease, stage 3B. Kidney function being monitored. 5. Iron deficiency anemia. Hemoglobin 7.8. The patient remains on supplements. 6. I will consult Infectious Disease specialist to follow the patient for wound infection. LUIZA REEVES MD CM:PNTRANS 1050 1107 LUIZA REEVES MD 01/31/19 1106 interface
--- NOTE | ~2019-01-25 | CON ---
[place], [place] REPORT OF CONSULTATION NAME: JANELLE NI UNIT #: [id number] ROOM: 532 DOCTOR: AHSAN MCNEILL [facility],GONZALES BIRTHDATE: [birth year] DOS: [place]anks on consultation report 01/30/2019. IMPRESSION: Probable micro access. GONZALES FOREMAN MD CM:CONSTR:REPORT OF CONSULTATION 1226 02/22/19 1755 interface
--- NOTE | ~2019-01-25 | PR ---
[place], [place] PROGRESS NOTE NAME: JANELLE NI [facility] #: [id number] UNIT #: [id number] ROOM: 532 DOCTOR: PRUDENCIO ROLAND DPM BIRTHDATE: [birth year] DOS: SUBJECTIVE: The patient was seen for followup of ulceration with cellulitis of the right heel. OBJECTIVE FINDINGS: Pedal pulses barely palpable. There is erythema surrounding the right heel ulceration approximately 4 cm in diameter, is full-thickness into the subcutaneous tissue. No signs of fluctuance. No signs of purulent drainage or foul odor. Radiographic studies are still pending with no result at this point. Arterial studies reveal moderate arterial disease, bilateral slightly more severe on the left. On the right, epsn-qk-qcihshgz disease distal to the popliteal artery. ASSESSMENT: Cellulitis, diabetic ulceration, right heel. PLAN: Evaluation and management. Ordered Bactroban and gauze dressing daily. The patient cannot have an MRI due to pacemaker. We will recheck the radiographs and round on the patient possible surgical debridement, but at this time due to the vascular studies. We will consult Dr. Lucas for vascular consultation and we will continue IV antibiotics and followup. The patient is experiencing less pain according to her since her last visit yesterday and the WBC is also decreased. We will continue to follow up. PRUDENCIO ROLAND DPM CM:PNJASPER 1053 1205 PRUDENCIO ROLAND DPM 01/27/19 1205 interface
--- NOTE | ~2019-01-25 | PR ---
[place], [place] PROGRESS NOTE NAME: [id number] UNIT #: [id number] ROOM: 532 DOCTOR: LUIZA REEVES MD BIRTHDATE: [birth year] DOS: 02/03/2019 SUBJECTIVE: The patient is status post incision and drainage of the right heel, being treated with antibiotics for 6 weeks with meropenem. student support services director making arrangements. OBJECTIVE: VITAL SIGNS: Blood pressure 128/69, heart rate 70 beats per minute, breathing 20 times per minute, temperature 98 degrees Fahrenheit. GENERAL APPEARANCE: Obesity. HEENT AND NECK: Exam within normal limits. CARDIOVASCULAR SYSTEM: Heart rate is regular in rate and rhythm. S1 and S2 normally audible. LUNGS: Clear to auscultation. ABDOMEN: Soft, nontender. No obvious organomegaly. Bowel sounds are present. EXTREMITIES: Right heel dressing. IMPRESSION: 1. The patient with right calcaneal right heel wound, recommended treatment with ertapenem by Infectious Disease specialists. student support services director working to make arrangements. 2. Diabetic nephropathy, stage 3b, chronic kidney disease. 3. Right foot pain, reasonably controlled with treatment with Vicodin. 4. Peripheral arterial disease, mild to moderate, evaluated by Dr. Lucas. LUIZA REEVES MD CM:PNTRANS [id number] LUIZA REEVES MD 02/04/19 1412 interface
--- NOTE | ~2019-01-25 | PR ---
[place], [place] PROGRESS NOTE NAME: [id number] UNIT #: [id number] ROOM: 532 DOCTOR: LUIZA REEVES MD BIRTHDATE: [birth year] DOS: 01/29/2019 SUBJECTIVE: The patient is complaining of significant pain in the right foot since she had abscess drainage, possible foreign body removal. OBJECTIVE: GENERAL APPEARANCE: The patient is alert and oriented x 3, in no visible distress. VITAL SIGNS: Blood pressure 141/71, heart rate 87 beats per minute, breathing normally, afebrile. HEENT AND NECK: Exam within normal limits. CARDIOVASCULAR SYSTEM: Heart rate is regular in rate and rhythm. S1 and S2 normally audible. LUNGS: Clear to auscultation. ABDOMEN: Soft, nontender. No obvious organomegaly. Bowel sounds are present. EXTREMITIES: Without significant cyanosis or edema. IMPRESSION: 1. The patient with drainage of abscess and possible foreign body removal from the right heel complaining of increased pain for which I will give her Dilaudid 1 mg IV and increase her Vicodin to two tablets as needed. 2. The patient with peripheral vascular disease, being evaluated by Dr. Lucas. 3. Severe cardiomyopathy with chronic systolic type, compensated congestive heart failure, 4. BUN and creatinine of 50 and 1.93. 5. Mild leukocytosis, 13,000 white cell count apparently related to foot infection. 6. Iron deficiency anemia with a hemoglobin of 7.8 and iron level low at 25, being replaced with Ferrlecit infusion. I will add iron to her diet. LUIZA REEVES MD CM:PNTRANS [phone] LUIZA REEVES MD 01/30/19 0024 interface
--- NOTE | ~2019-01-25 | PR ---
[place], [place] PROGRESS NOTE [id number] UNIT #: [id number] ROOM: 532 DOCTOR: LUIZA REEVES MD BIRTHDATE: [birth year] DOS: SUBJECTIVE: The patient continues to complain of increasing shortness of breath despite of being on breathing treatments and antibiotics. OBJECTIVE: VITAL SIGNS: Blood pressure 123/65, heart rate of 75 beats per minute, breathing 18 times per minute, temperature 99.1 degrees Fahrenheit. GENERAL APPEARANCE: The patient is alert and oriented x 3, in no visible distress. HEENT AND NECK: Exam within normal limits. CARDIOVASCULAR SYSTEM: Heart rate is regular in rate and rhythm. S1 and S2 normally audible. LUNGS: Decreased breath sounds. Some expiratory wheezing on lung auscultation. ABDOMEN: Soft, nontender. No obvious organomegaly. Bowel sounds are present. EXTREMITIES: Without significant cyanosis or edema. IMPRESSION AND PLAN: 1. The patient with acute exacerbation of moderate persistent asthma. Dr. Odom has been consulted. I will check a chest x-ray on her. She is already on antibiotics and nebulizer treatments. 2. Right heel osteomyelitis, status post incision and drainage of an abscess, being followed by Podiatry and Infectious Disease specialist and treated with antibiotic, Zosyn. 3. Type 2 diabetes mellitus. Blood sugar has been treated and controlled. 4. Diabetic nephropathy, stage 3 chronic kidney disease. 5. Peripheral arterial disease, [id number], evaluated by Dr. Lucas. 6. Iron deficiency anemia, treated with supplements. 7. Benign essential hypertension, treated and controlled. 8. Coronary artery disease of the [place] vessels without chest pains. LUIZA REEVES MD CM:PNTRANS [id number] LUIZA REEVES MD 02/09/19 1153 interface
--- NOTE | ~2019-01-25 | PR ---
[place], [place] PROGRESS NOTE NAME: JANELLE NI [facility] #: [id number] UNIT #: [id number] ROOM: 532 DOCTOR: VIOLETA PERRY MD BIRTHDATE: [birth year] DOS: SUBJECTIVE: The patient is not having any complaints, but she has a very moist sounding cough and some audible wheezing. OBJECTIVE: VITAL SIGNS: Graphic trend shows a pressure of 154/69, pulse of 70, respirations 18, temperature 97.9. LUNGS: Diminished breath sounds, scattered wheezes bilaterally. HEART: Regular. ABDOMEN: Obese. EXTREMITIES: Without any edema. Right heel, large black eschar with a small deep wound still present. LABORATORY DATA: White cell count is 3.4, hemoglobin 8.7, hematocrit 28.4, platelets 163. Comprehensive glucose 187, BUN 56, creatinine 1.62, sodium 134, and potassium 4.0. ASSESSMENT AND PLAN: 1. Poorly healing wound of right heel with osteomyelitis, on IV antibiotics. 2. Moderate persistent asthma with acute exacerbation. CT of the chest without contrast will be ordered. 3. Chronic kidney disease stage 3, fairly stable without any further worsening. 4. Adult failure to thrive. PT/OT will be consulted. VIOLETA PERRY MD CM:PNTRANS [id number] [phone] VIOLETA PERRY MD 02/10/19 1546 interface
--- NOTE | ~2019-01-25 | PR ---
[place], [place] PROGRESS NOTE NAME: [id number] UNIT #: [id number] ROOM: 532 DOCTOR: VITALY HUFF MD,NYLA BIRTHDATE: [birth year] DOS: 02/13/2019 PULMONARY PROGRESS NOTE SUBJECTIVE: She was noted comfortable, resting in the bed this morning of assessment. Shortness of breath has been slowly but gradually improving. Coughing and wheezing is also resolving. There were no symptoms of fever or chills reported by the patient. Denies symptoms of hemoptysis, nausea or vomiting. OBJECTIVE: VITAL SIGNS: For the patient which are recorded as normal temperature, respiratory rate 20, heart rate 78, blood pressure 134/78 to 151/77. Pulse oxygen saturation at rest on room air is 96% saturation. HEENT: Head was atraumatic. Eyes nonicterus. NECK: Supple. CARDIOVASCULAR: S1, S2 audible. LUNGS: The patient was noted with mild expiratory wheezing. There were no crackles. ABDOMEN: Soft, nontender. Bowel sounds present. EXTREMITIES: The patient was noted with resolving acute edema gradually. IMPRESSION: 1. Resolving acute congestive heart failure as well as a chronic obstructive pulmonary disease exacerbation, concomitantly and progressively. 2. The patient with anemia as well. PLAN OF TREATMENT: Continue gradual reduce of Solu-Medrol. Continuation of bronchodilators as previously. Continue other therapy, plan of management as well. Continuation of IV Bumex as well. Monitor kidney functions. NYLA HAIDER MD CM:PNTRANS [phone] NYLA HUFF MD 02/14/19 0121 interface
--- NOTE | ~2019-01-25 | PR ---
[place], [place] PROGRESS NOTE NAME: JANELLE NI [facility] #: [id number] UNIT #: [id number] ROOM: 532 DOCTOR: VIOLETA PERRY MD BIRTHDATE: [birth year] DOS: 01/27/2019 SUBJECTIVE: The patient is doing well, does not have any new complaints. OBJECTIVE: VITAL SIGNS: Graphic trend shows a pressure of 121/61, pulse of 80, respirations 18, temperature 98.6. LUNGS: Clear. HEART: Regular. ABDOMEN: Soft. EXTREMITIES: Without any edema, the right, left. The patient has covered up wound. ASSESSMENT AND PLAN: 1. Right heel wound with cellulitis and peripheral vascular disease, was seen by Podiatry, on IV antibiotics. 2. Cardiomyopathy, ejection fraction 35% without any evidence of congestive heart failure. 3. 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 4. Anemia. Check iron, B12, folic acid, ferritin and Hemoccults. VOILETA PERRY MD CM:PNTRANS 5 VIOLETA PERRY MD 01/27/19 0952 interface
--- NOTE | ~2019-01-25 | PR ---
[place], [place] PROGRESS NOTE [id number] UNIT #: [id number] ROOM: 532 DOCTOR: LUIZA REEVES MD BIRTHDATE: [birth year] DOS: 02/08/2019 SUBJECTIVE: The patient continues to feel better with the right heel pain, but she is also complaining of increased shortness of breath and chest congestion. OBJECTIVE:. GENERAL APPEARANCE: The patient is alert and oriented x 3, in no visible distress. VITAL SIGNS: Blood pressure 157/76, heart rate 85 beats per minute, breathing 18 times per minute, temperature 98 degrees Fahrenheit. HEENT AND NECK: Exam within normal limits. CARDIOVASCULAR SYSTEM: Heart rate is regular in rate and rhythm. S1 and S2 normally audible. LUNGS: Mild expiratory wheezing. ABDOMEN: Soft, nontender. No obvious organomegaly. Bowel sounds are present. EXTREMITIES: Without significant cyanosis or edema. IMPRESSION: 1. The patient with acute exacerbation of moderate persistent asthma. I will consult Dr. Odom to follow and treat. 2. Right heel osteomyelitis and wound incision and drainage being treated with antibiotics and we are trying to arrange for patient to go to [facility]. 3. Type 2 diabetes mellitus. Blood sugars being monitored and controlled. 4. Diabetic nephropathy with chronic kidney disease stage 3. 5. Peripheral arterial disease, mild to moderate evaluated with Dr. Lucas. 6. Iron deficiency anemia, treated with supplements. 7. Benign essential hypertension, being treated and controlled. 8. Coronary artery disease of [place] vessels without chest pains. LUIZA REEVES MD CM:PNTRANS 22 0 LUIZA REEVES MD 02/09/190 interface
--- NOTE | ~2019-01-25 | CON ---
[place], [place] REPORT OF CONSULTATION [id number] UNIT #: [id number] ROOM: 532 DOCTOR: MARINO MCNEILLCLEMENCIA BIRTHDATE: [birth year] DOS: 02/12/2019 GASTROENDOSCOPIC CONSULTATION HISTORY OF PRESENT ILLNESS: A 68-year-old patient who presented for podiatric management and she has been found to have low blood count and I have been consulted regarding addressing guaiac positivity on the patient. The patient has history of aspirin intake and therefore guaiac positivity could be partially contributed to above. She is telling me that she is long-term anemic patient and has had a transfusion at that time. She had pacemaker defibrillator and has been on aspirin and potential for guaiac positivity. PAST MEDICAL HISTORY: Congestive diastolic failure, coronary artery disease, diabetes mellitus, systemic hypertension, and umbilical hernia. ALLERGIES: No known medication. FAMILY HISTORY: Noncontributory. MEDICATIONS: List has been reviewed. REVIEW OF SYSTEMS: HEENT: Denies double vision or blurred vision. RESPIRATORY: Admits to shortness of breath. CARDIOVASCULAR: Denies chest pain. DIGESTIVE SYSTEM: No hematemesis, no hematochezia, or anemia. PHYSICAL EXAMINATION: HEENT: Within normal limit. NECK: Supple, no thyromegaly. CHEST: Symmetric anatomy, decreased air entry bilaterally. HEART: Normal sinus rhythm at the present time. ABDOMEN: Soft. No hepato-organomegaly, obese. Large ventral hernia present. Bowel sounds present. EXTREMITIES: Stasis dermatitis, bilateral ulceration, and wrapping was noticed. IMPRESSION: Guaiac positivity, anemia, and history of aspirin intake. Other adjunctive diagnoses renal insufficiency, diastolic failure, cardiomyopathy, diabetes mellitus, coronary artery disease, systemic hypertension, lower extremity ulceration and stasis. PLAN AND DISCUSSION: I have discussed with the patient regarding evaluation of anemia. She is not interested to consent or proceed. Her latest H and H has been 8 and 27, platelet of 168 and her comprehensive metabolic panel continues to show renal insufficiency with GFR of 36. At the present time, since she is not interested to proceed with the studies we are going to keep her on Protonix 40 mg daily coverage and observation of H and H periodically. I thank you very much indeed. [place], [place] REPORT OF CONSULTATION NAME: JANELLE NI UNIT #: [id number] ROOM: 532 DOCTOR: MARINO MCNEILL,CLEMENCIA BIRTHDATE: [birth year] CLEMENCIA PICHARDO MD CM:CONSTR:REPORT OF CONSULTATION 22 02/13/19222 interface
--- NOTE | ~2019-01-25 | PR ---
[place], [place] PROGRESS NOTE NAME: JANELLE NI UNIT #: [id number] ROOM: 532 DOCTOR: VITALY HUFF MD,NYLA BIRTHDATE: [birth year] DOS: 02/12/2019 PULMONARY PROGRESS NOTE SUBJECTIVE: The patient was noted comfortable at this time, resting in the bed this morning of assessment. She had not been noted symptoms of chest pain, shortness breath and cough. The patient has been slowly subsiding and improving. She was continued diuretic therapy as well. The patient continued to have a negative fluid balance with that. The BiPAP was used. The patient intermittently with oxygen supplementation. OBJECTIVE: VITAL SIGNS: Normal temperature, respiratory rate 18, heart rate 73, pulse and 52/75. Pulse oxygen saturation on the resting room air was 100% saturation. HEENT: Head was atraumatic. Eyes nonicterus. NECK: Supple. CARDIOVASCULAR: S1, S2 is audible. LUNGS: The patient was noted without any wheezing or crackles at the present time. The breaths are noted, diminished in the lower portion of the lungs. ABDOMEN: Soft, flat, nontender. EXTREMITIES: Without any edema. LABORATORY DATA: CBC: WBC count 5.3, platelet count were normal. CBC this morning, BUN 67, creatinine 1.69. IMPRESSION: Resolving acute congestive heart failure gradually and progressively with improving acute exacerbation of chronic obstructive pulmonary disease as well. PLAN OF MANAGEMENT: Decrease Solu-Medrol dose to 40 mg daily. Continue oxygen supplementation, bronchodilators, BiPAP and oxygen use as previously. NYLA HAIDER MD CM:PNTRANS 1301 1558 NYLA HUFF MD 02/12/19 1557 interface
--- NOTE | ~2019-01-25 | PR ---
[place], [place] PROGRESS NOTE NAME: JANELLE NI [facility] #: [id number] UNIT #: [id number] ROOM: 532 DOCTOR: VIOLETA PERRY MD BIRTHDATE: [birth year] DOS: SUBJECTIVE: The patient is not having any complaints today. OBJECTIVE: VITAL SIGNS: Blood pressure is 121/53, pulse of 75, respirations 20, temperature 97.8. LUNGS: Clear. HEART: Regular. ABDOMEN: Obese, soft. EXTREMITIES: Without any edema. ASSESSMENT AND PLAN: 1. Peripheral vascular disease, awaiting a consultation with Dr. Lucas. 2. Severe cardiomyopathy without any evidence of congestive heart failure. 3. Chronic kidney disease. The patient may not be a candidate for extreme dye load. We will see what Dr. Lucas says. 4. Anemia, iron deficiency. Iron supplements will be started. VIOLETA PERRY MD CM:PNTRANS 0825 1005 VIOLETA PERRY MD 01/28/19 1005 interface
--- NOTE | ~2019-01-25 | CON ---
[place], [place] REPORT OF CONSULTATION [id number] UNIT #: [id number] ROOM: 532 DOCTOR: GIOVANNY MASON DPM BIRTHDATE: [birth year] DOS: 01/26/2019 SUBJECTIVE: This patient is seen as consult for evaluation of wound on the bottom of her right heel. She states she has had some pain and redness in the right heel for about a week. It has been getting worse. She denies fever or chills. She admits to being diabetic. She is not sure if she stepped on anything and unaware of any bleeding from the area, but it is painful with pressure and painful with ambulation and activity. She was admitted yesterday because she also has some shortness of breath. PAST MEDICAL HISTORY: Positive for diabetes which is insulin-dependent, history of CHF, hypertension, venous insufficiency. CURRENT MEDICATIONS: Include Bumex, 81 mg aspirin, insulin, Coreg, [place], Zosyn, Imdur and Tylenol. ALLERGIES: None. OBJECTIVE: Upon lower extremity physical examination, DP and PT pedal pulses are barely palpable. CFT is 2 seconds to all digits. Skin temperature is cool to toes. There is diminished hair growth noted. There is mild dependent edema noted bilaterally. Sensation appears grossly intact and symmetrical. The plantar surface of the right heel has a small ulceration measuring about 0.4 cm in diameter. It is full thickness into subcutaneous tissue. I cannot see any sinus tracts or any tracking down to bone. There is no expressible drainage. She does have surrounding the ulcer some dry blister skin. I cannot express any purulence. I do not see any foreign body in the heel at this time. X-rays and arterial vascular studies are pending. ASSESSMENT: Diabetic ulcer, plantar right heel with cellulitis, possible foreign body. PLAN: Consult is performed. After examining the area, there are no deep sinus tracts; I do not see any signs of abscess, but there is some erythema around the ulceration. We will await the results of the x-rays and the results of the arterial vascular studies. I discussed with the patient the concern is that she may have a foreign body in the heel or she may be starting to develop a small abscess, possible MRI, but let us see what the current testing shows. A culture was done to the area, continue IV antibiotics and follow up with the patient tomorrow for reevaluation. Thank you for the opportunity to take part in care of this patient. [place], [place] REPORT OF CONSULTATION NAME: JANELLE NI [facility] UNIT #: [id number] ROOM: [facility] DOCTOR: GIOVANNY MASON DPM BIRTHDATE: [birth year] GIOVANNY MASON DPM CM:CONSTR:REPORT OF CONSULTATION 1212 01/27/19 0025 interface
--- NOTE | ~2019-01-25 | EKG ---
[place], [place] ELECTROCARDIOGRAM REPORT NAME: JANELLE NI UNIT #: [id number] ROOM: 532 DOCTOR: EPIPHANY DRAFT REPORT BIRTHDATE: [birth year] [facility] Test Date: 2019-02-05 Test Time: 00:22:11 Pat Name: JANELLE NI Department: Room: 532 1 Gender: F Email Campaign Manager: EKG.DC : 1950 Requested By: LUIZA REEVES Order Number: [id number] Reading MD: Elmira Lorenzo Measurements Intervals [place] Rate: 71 P: 0 [place]: 71 QRS: 264 QRSD: 189 T: 81 QT: 517 QTc: 562 Interpretive Statements ? A fib Intermittent Ventricular-paced Occ fusion beats Baseline wander in lead(s) V3,V5 Compared to ECG 01/25/2019 16:32:55 No significant changes Electronically Signed On 02-07-2019 4:51:04 PDT by Elmira Lorenzo CM:EKGRPT:ELECTROCARDIOGRAM REPORT 0022 0451 LUIZA REEVES MD EPIPHANY DRAFT REPORT LUIZA REEVES MD
--- NOTE | ~2019-01-25 | EKG ---
[place], [place] ELECTROCARDIOGRAM REPORT NAME: JANELLE NI UNIT #: [id number] ROOM: 532 DOCTOR: DICKSON DRAFT REPORT BIRTHDATE: [birth year] [facility] Test Date: 2019-01-25 Test Time: 11:49:15 Pat Name: JANELLE NI Department: Room: 532 Gender: F Data Migration Lead: : 1950 Requested By: ROJELIO SAMUELS Order Number: [id number] Reading MD: Derek Rao MD Measurements Intervals [place] Rate: 70 P: 0 [place]: QRS: -29 QRSD: 120 T: 202 QT: 467 QTc: 504 Interpretive Statements Ventricular-paced complexes No further rhythm analysis attempted due to paced rhythm Incomplete left bundle branch block LVH with secondary repolarization abnormality Prolonged QT interval Baseline wander in lead(s) V6 Compared to ECG 10/02/2018 16:59:03 Left ventricular hypertrophy now present Early repolarization now present Prolonged QT interval now present Atrial-paced complex(es) or rhythm no longer present Electronically Signed On 01-27-2019 7:01:58 PDT by Derek Rao MD CM:EKGRPT:ELECTROCARDIOGRAM REPORT 1149 0701 ROJELIO FORMAN DRAFT REPORT ROJELIO SAMUELS MD
--- NOTE | ~2019-01-25 | PR ---
[place], [place] PROGRESS NOTE [id number] #: [id number] ROOM: 532 DOCTOR: LUIZA REEVES MD BIRTHDATE: [birth year] DOS: 02/06/2019 SUBJECTIVE: The patient continues to feel better. OBJECTIVE: GENERAL APPEARANCE: The patient is alert and oriented x 3, in no visible distress. VITAL SIGNS: Blood pressure 144/73, heart rate of 83 beats per minute, breathing normally, afebrile. HEENT AND NECK: Exam within normal limits. CARDIOVASCULAR SYSTEM: Heart rate is regular in rate and rhythm. S1 and S2 normally audible. LUNGS: Clear to auscultation. ABDOMEN: Soft, nontender. No obvious organomegaly. Bowel sounds are present. EXTREMITIES: Without significant cyanosis or edema. Right heel dressings where the abscess was drained. IMPRESSION 1. The patient is status post incision and drainage of the right heel abscess requires 6 weeks of total antibiotics, waiting for transfer to half-way facility. 2. Type 2 diabetes mellitus. Blood sugars are well controlled and being treated. 3. Diabetic nephropathy, chronic kidney disease stage 3b. 4. Peripheral arterial disease, [id number], evaluated by Dr. Lucas. 5. Iron deficiency anemia treated with supplements. 6. Benign essential hypertension, treated and controlled. 7. Coronary artery disease of the [place] vessels without chest pain. 8. Abscess and infection, being treated with IV Zosyn. LUIZA REEVES MD CM:PNTRANS 1938 LUIZA REEVES MD 02/07/19 0054 interface
--- NOTE | ~2019-01-25 | CON ---
[place], [place] REPORT OF CONSULTATION [id number] UNIT #: [id number] ROOM: 532 DOCTOR: AHSAN MCNEILL [facility],GONZALES BIRTHDATE: [birth year] DOS: 02/06/2019 SUBJECTIVE: The patient denies any chest discomfort or dyspnea. The patient has peripheral arterial disease and the wound on the right side was operated on and die storage worker feel that the current status is fairly stable to be discharged and I will follow as an outpatient and the patient has peripheral artery disease in the right side, probably below the knee. Distal to the popliteal, but on the left side may have an inlet vessel disease, moderate to severe such as iliac and represent fairly stable. We will manage conservatively. Diminished pulses in both sides. PHYSICAL EXAMINATION: NECK: Supple. LUNGS: No rales heard, diminished breath sound at bases. HEART: S1, S2 regular. ABDOMEN: Soft. Color is good, not diaphoretic. EXTREMITIES: No cyanosis. IMPRESSION: Underlying severe peripheral artery disease and if the patient is symptomatic and the wound is not really may consider further evaluation with an angiogram and revascularization. Options, procedure, complications, morbidity, mortality risk is explained to the patient and the family. GONZALES FOREMAN MD CM:CONSTR:REPORT OF CONSULTATION 0949 02/07/19 1809 interface
--- NOTE | ~2019-01-25 | PR ---
[place], [place] PROGRESS NOTE NAME: JANELLE NI [facility] #: [id number] UNIT #: [id number] ROOM: 532 DOCTOR: VITALY HUFF MD,NYLA BIRTHDATE: [birth year] DOS: 02/11/2019 PULMONARY PROGRESS NOTE SUBJECTIVE: The patient was noted comfortable this morning. Noted with some chest congestion and coughing at time, stating she has been showing continued reduction of the respiratory symptom. She was seen by Dr. Andree Valle. This morning, the patient was suggesting consideration for fiberoptic bronchoscopy. The patient stated the cough, which was noted [id number], which was nonproductive with occasional sputum expectoration as stated. Denies symptoms of fever or chills. Denies symptoms of hemoptysis. The edema of the lower extremity has been gradually resolving. There were no symptoms of abdominal pain, nausea, vomiting, diarrhea or headache. Remaining systems were reviewed. They were noted all negative. OBJECTIVE: VITAL SIGNS: Normal temperature, respiratory rate of 18, heart rate 69, blood pressure 130/78. Pulse oxygen saturation recorded on 2 liters nasal cannula was 100% saturation. HEENT: Examination shows head was atraumatic. Eyes nonicterus. NECK: Supple. CARDIOVASCULAR: S1, S2 audible. LUNGS: The patient was noted without any crackles. Mild expiratory wheezing. ABDOMEN: Soft and nontender. Bowel sounds present. EXTREMITIES: Resolving edema. MUSCULOSKELETAL: Without acute deformities. CENTRAL NERVOUS SYSTEM: Cranial nerves 2 through 12 intact. LABORATORY DATA: CBC this morning, WBC count 3.6, hemoglobin 8.7, platelet count were normal. CMP this morning with BUN 65, creatinine 1.73, glucose 223. The CT scan of the chest that was done 02/10/2019, previously was noted with a patchy ground glass noted in the lungs bilaterally. IMPRESSION: 1. The patient with acute congestive heart failure. The patient responded to treatment with acute exacerbation of chronic obstructive pulmonary disease at this time with intermittent cough. 2. Type 2 diabetes mellitus. 3. Osteomyelitis of the foot with cellulitis of the lower extremity. PLAN OF TREATMENT. At this time, the patient would not require any changes in medical management and at this time would not be considered for fiberoptic bronchoscopy, most likely the patient should improve in oral respiratory status in the next few days with current treatment if the symptoms worsening noted and non resolution certainly the patient will be assessed for the bronchoscopy at that time. [place], [place] PROGRESS NOTE NAME: JANELLE NI UNIT #: [id number] ROOM: 532 DOCTOR: VITALY HUFF MD,NYLA BIRTHDATE: [birth year] NYLA HAIDER MD CM:MADISON [id number] NYLA HUFF MD 02/23/19 0821 interface
--- NOTE | ~2019-01-25 | PR ---
[place], [place] PROGRESS NOTE NAME: JANELLE NI [facility] #: [id number] UNIT #: [id number] ROOM: 532 DOCTOR: VITALY HUFF MD,NYLA BIRTHDATE: [birth year] DOS: 02/10/2019 PULMONARY PROGRESS NOTE SUBJECTIVE: The patient was noted comfortable at this time, has been noted significant reduction in respiratory symptoms yesterday, improvement in the audible wheezing. Coughing has been decreased. Denies symptoms of fever or chills. Denies symptoms of hemoptysis. Denies symptoms of nausea, vomiting, diarrhea, abdominal pain as well. Denies symptoms of hematemesis, melena, or hematochezia. The patient has been ordered CT scan of chest by the primary care physician that was completed this morning as well. She has used the BiPAP that was ordered for several hours and also continue bronchodilators and IV diuretic therapy as well. Remaining systems were reviewed. They were noted all negative. PHYSICAL EXAMINATION: VITAL SIGNS: Normal temperature, respiratory rate 20, heart rate 70, blood pressure 120/80. The pulse oxygen saturation on 2 liters nasal cannula is 99% saturation. HEENT: Chronic moderate obesity. Head was atraumatic. Eyes nonicterus. NECK: Supple. CARDIOVASCULAR SYSTEM: S1, S2 audible. LUNGS: Scattered crackles in the lungs were noted with reduction in the wheezing. The resolution noted incomplete. ABDOMEN: Soft, nontender. Bowel sounds present. EXTREMITIES: The patient was noted without any acute edema. MUSCULOSKELETAL: The patient was noted without any acute deformities. CENTRAL NERVOUS SYSTEM: Cranial nerves 2-12 intact. LABORATORY DATA: CT scan of the chest that was done was reviewed, shows patchy opacities noted, which are nodular formation as well as a combination of ground glass in almost all of the lungs except the left upper lobe. No significant lymphadenopathy was noted. There were no pleural effusions. Lack of the IV contrast does limit the assessment accurately of the mediastinal structures. IMPRESSION: 1. The patient who has been currently admitted to the hospital noted with finding consistent with acute exacerbation of congestive heart failure and bronchial asthma. Possibility of acute pneumonia, multifocal will be considered at this time including the viral etiology cannot be excluded. 2. Moderate obesity as well. 3. The patient with acute kidney injury, which is resolving with the diuretic therapy. PLAN OF TREATMENT: Continue diuretic, bronchodilators, corticosteroids. Monitor kidney functions closely. Continue other therapy, plan of management at this time without any changes. Continue antibiotics for the acute pneumonia management as well. The patient was started on the Levaquin by Dr. Andree Valle. I will be ordering the urine for legionella antigen and strep antigen [place], [place] PROGRESS NOTE NAME: JANELLE NI UNIT #: [id number] ROOM: [facility] DOCTOR: VITALY HUFF MD,NYLA BIRTHDATE: [birth year] to be completed as well. Sputum for Gram stain culture could be done if the patient expectorates sputum as well. Monitor current radiologic abnormalities until resolution in the next several weeks. NYLA HAIDER MD CM:MADISON [id number] NYLA HUFF MD 02/11/19 0243 interface
--- NOTE | ~2019-01-25 | EKG ---
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
--- NOTE | ~2019-01-25 | WRIGHTHP ---
[place], [place] PATIENT HISTORY AND PHYSICAL EXAM NAME: JANELLE NI [facility] #: [id number] UNIT #: [id number] ROOM: 532 DOCTOR: LUIZA REEVES MD BIRTHDATE: [birth year] DOS: 01/25/2019 HISTORY OF PRESENT ILLNESS: The patient is a 68-year-old female with a past medical history of: 1. Systolic type chronic CHF and cardiomyopathy. 2. Coronary artery disease of the [place] vessels and coronary artery bypass grafts. 3. Automatic implantable cardioverter defibrillator and pacemaker placement. 4. History of large umbilical hernia with a portion of stomach and liver in it. 5. Type 2 diabetes mellitus. 6. Obesity. 7. Benign essential hypertension. The patient presented to the ER with increased swelling in her legs and increased shortness of breath and redness in her foot and foot pains. The patient has blackened area on the right heel. The patient admitted for cellulitis of the right foot wound and congestive heart failure. REVIEW OF SYSTEMS: CARDIOVASCULAR SYSTEM: No chest pains. History of coronary artery disease. GASTROINTESTINAL: No nausea, vomiting, diarrhea, or constipation. RESPIRATORY: Increasing shortness of breath. FAMILY HISTORY: Noncontributory. HOME MEDICATIONS: MiraLax, aspirin, Bumex, insulin. ALLERGIES: No known drug allergies. PHYSICAL EXAMINATION: GENERAL: Alert and oriented x 3, in no visible distress except for right heel pains. HEENT AND NECK: Extraocular movements are intact. Sclerae are anicteric. Oral mucosa is moist and clean. No obvious facial weakness. Neck is supple without any lymphadenopathy. No thyromegaly. No JVD. No carotid arterial bruits. LUNGS: Decreased breath sounds on lung auscultation and right foot swelling with right heel blackened area. CARDIOVASCULAR SYSTEM: Heart rate is regular in rate and rhythm. S1 and S2 normally audible. No significant murmur or any other abnormal cardiac sounds. ABDOMEN: Soft, nontender. No obvious organomegaly. Bowel sounds are present. No obvious herniation. EXTREMITIES: Without significant cyanosis or edema. Warm to touch. CENTRAL NERVOUS SYSTEM: Alert and oriented x 3. Cranial nerves II-XII are intact. Speech is normal. The patient is able to move all extremities. Normal muscle strength. Deep tendon reflexes are equal on both sides. Plantar's were downgoing. LABORATORY DATA: BUN and creatinine 15 and 1.8. White cell count elevated at 13,400, hemoglobin 8.3. Normal cardiac enzymes. IMPRESSION: [place], [place] PATIENT HISTORY AND PHYSICAL EXAM [facility]: [id number] [facility] #: [id number] ROOM: [facility] DOCTOR: LUIZA REEVES MD BIRTHDATE: [birth year] 1. The patient presenting with infected right heel blackened area and pain. Podiatry has been consulted. The patient was started on IV Zosyn and to be followed closely. 2. Acute over chronic systolic type congestive heart failure, being treated with diuresis and serum electrolytes are being monitored. 3. Coronary artery disease of the [place] vessels. The patient remains on isosorbide, symptom free, negative cardiac enzymes. 4. Chronic constipation treated and controlled with MiraLax. 5. Major depression, recurrent, mild, treated and controlled with Celexa, which is being continued. 6. Type 2 diabetes mellitus. The patient on glipizide. Blood sugars to be monitored and followed and glipizide being continued. 7. Benign essential hypertension, treated with hydralazine, which is being continued. Blood pressures to be monitored and treated. LUIZA REEVES MD CM:HISPHYS:PATIENT HISTORY AND PHYSICAL EXAMINATION 1333 [id number] LUIZA REEVES MD 01/26/19 1401 interface
--- NOTE | ~2019-01-25 | EKG ---
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 : 1950 Requested By: ROJELIO SAMUELS Order Number: [id number] Reading MD: Derek Rao MD Measurements Intervals [place] Rate: 71 P: 117 MI: 44 QRS: -40 QRSD: 120 T: 219 QT: 465 QTc: 506 Interpretive Statements Ventricular-paced complexes No further analysis attempted due to paced rhythm Baseline wander in lead(s) V4 Compared to ECG 10/02/2018 16:59:03 Atrial-paced complex(es) or rhythm no longer present Left bundle-branch block no longer present Electronically Signed On 01-27-2019 7:02:45 PDT by Derek Rao MD CM:EKGRPT:ELECTROCARDIOGRAM REPORT [id number] ROJELIO FORMAN DRAFT REPORT ROJELIO SAMUELS MD
--- NOTE | ~2019-01-25 | PR ---
[place], [place] PROGRESS NOTE NAME: JANELLE NI [facility] #: [id number] UNIT #: [id number] ROOM: 532 DOCTOR: LEANDRO MCNEILL,LUIZA Euceda BIRTHDATE: [birth year] DOS: 02/12/2019 IMPRESSION: 1. Patient with acute systolic type congestive heart failure, treated with diuresis with IV Bumex with some improvement in her breathing. 2. Dependent leg edema, bilateral, to be treated with leg elevation and compression socks including diuresis. 3. Benign essential hypertension. Blood pressure is being monitored and treated. 4. Osteomyelitis and right heel abscess, being treated with IV antibiotics. 5. Multifocal pneumonia, treated with IV antibiotics. Dr. Odom, the supervisor liquid yeast, is following. 6. Adult failure to thrive. The patient waiting for transfer to rehabilitation, which apparently her insurance is not covering according to the patient. 7. Coronary artery disease of [place] vessels without chest pains. 8. Diabetic nephropathy stage 3, chronic kidney disease stage 3b. LUZIA REEVES MD CM:PNTRANS [phone] LUIZA REEVES MD 02/13/19 0109 interface
--- NOTE | ~2019-01-25 | CON ---
[place], [place] REPORT OF CONSULTATION NAME: JANELLE NI UNIT #: [id number] ROOM: 532 DOCTOR: SMITHA ELI MD BIRTHDATE: [birth year] DOS: 01/31/2019 REASON FOR CONSULTATION: Left foot osteomyelitis. HISTORY OF PRESENT ILLNESS: This is a 68-year-old female with past medical history of diabetes, coronary artery disease with peripheral neuropathy, presenting with right foot ulcer for almost a week. She has neuropathy and reduced sensation and she states that she noticed cracking from her heel side and was cleaning it with a rubbing alcohol and scraping it off. It was getting worse to the point she decided to come to the ER. It was bleeding, not necessarily draining pus. She was admitted on 01/25/2019. However, ID has been consulted 7 days later for management of osteomyelitis. The patient has been followed by Podiatry as well and she underwent drainage of her right heel abscess, which was probing to the bone. There was a firm black cylindrical object that was removed. Pathology is back. I do not see a specific bone pathology. The foot CT done prior to the surgery was not consistent with osteomyelitis. Vascular Surgery has been consulted and they are recommending vascular intervention for revascularization. The patient is currently on Zosyn. PAST MEDICAL HISTORY: Significant for systolic heart failure, coronary artery disease, implantable cardiac defibrillator and pacemaker, history of large umbilical hernia, type 2 diabetes, benign hypertension. REVIEW OF SYSTEMS: A 12-point review of systems has been done. Pertinent negatives and positives included in HPI, rest are noncontributory FAMILY HISTORY: Noncontributory. MEDICATIONS: Reviewed. ALLERGIES: No known drug allergies. PHYSICAL EXAMINATION: VITAL SIGNS: Vitals reviewed. GENERAL: The patient is alert, oriented x 3, not in acute distress. HEENT: Atraumatic, normocephalic. PERRLA, EOMI. LUNGS: Air entry bilaterally equal. No wheeze or crackles. CARDIOVASCULAR: S1, S2 normal. No murmur, rubs or gallops. ABDOMEN: Soft, nontender, nondistended. Bowel sounds present. EXTREMITIES: Right lower extremity currently in dressing postop. NEUROLOGIC: Grossly intact. LABORATORY DATA AND IMAGING: Noted mentioned in HPI. After review of her OP note as well as CT, it looks like her abscess was quite deep and the pathology did not have bone sections and I cannot rule out osteomyelitis based on her probing to bone prior to the procedure. High ESR and CRP. I would rather recommend giving her IV antibiotics instead of relying on oral with failure of antibiotics. I would recommend PICC line for the ease of dosing ertapenem 500 mg every day, renally adjusted for 4-6 weeks. Consult case management. [place], [place] REPORT OF CONSULTATION NAME: JANELLE NI UNIT #: [id number] ROOM: [facility] DOCTOR: SMITHA ELI MD BIRTHDATE: [birth year] Thank you for your consult, Dr. Castle. Please call for any questions. Smitha Eli MD CM:CONSTR:REPORT OF CONSULTATION 2159 01/31/19 2331 interface
--- NOTE | ~2019-01-25 | CON ---
[place], [place] REPORT OF CONSULTATION NAME: JANELLE NI [facility] #: [id number] UNIT #: [id number] ROOM: 532 DOCTOR: VITALY HUFF MDNYLA BIRTHDATE: [birth year] DOS: 02/09/2019 PULMONARY CONSULTATION, EVALUATION AND MANAGEMENT CONSULTATION REQUESTED BY: Ciro Castle M.D. REASON FOR CONSULTATION: Assessment of symptoms of shortness of breath. HISTORY OF PRESENT ILLNESS: This is a 68-year-old white female patient who has been admitted to the hospital under the care of Dr. Castle on 01/25/2019. She has been noted with a wound on the right heel with infection, which has been managed by Podiatry and also receiving antibiotics. She has been developing progressively increased shortness of breath in the last few days with increased wheezing and nonproductive cough. The patient has not been expectorating any sputum. Wheezing is noted audible at times as well. Denies symptoms of fever or chills. Receiving bronchodilators every 8 hours. She is not getting any corticosteroids. She denies symptoms of chest pain with that. There are no symptoms of hemoptysis reported. REVIEW OF SYSTEMS: CONSTITUTIONAL SYMPTOMS: Fatigue and tiredness noted. Denies symptoms of fever or chills. EYES: Denies burning, redness or tenderness. EARS, NOSE AND THROAT SYMPTOMS. Denies sore throat, hoarseness, otalgia, postnasal drainage, or epistaxis. CARDIOVASCULAR SYSTEM: Denies any pain of the lower extremities. Edema of the lower extremity, which has been resolving. Denies symptoms of palpitations. GASTROINTESTINAL SYSTEM: Denies dysphagia, nausea, vomiting, diarrhea, abdominal pain, hematemesis, melena, or hematochezia. SKIN: Denies any lesions or rashes. MUSCULOSKELETAL SYSTEM: Denies acute joint pain, redness or tenderness. CENTRAL NERVOUS SYSTEM: Denies dizziness, headache, diplopia, or syncopal episodes. Remaining systems were reviewed with the patient, they were noted all negative. PAST MEDICAL HISTORY: Known with history remarkable for: 1. Congestive heart failure with systolic and diastolic dysfunction. 2. Coronary artery disease. 3. Large umbilical hernia containing the liver and intestines. 4. Type 2 diabetes mellitus. 5. Benign essential hypertension. FAMILY HISTORY: Father at the age of 6767 years old from complications of myocardial infarction. Mother at the age of 6464 years old from complications of melanoma and history of diabetes. HOME MEDICATIONS: Reported as Ceftin, Bumex, Imdur, Celexa, Lantus insulin, aspirin, vitamin D, Coreg, calcitriol, lovastatin, glipizide, and hydralazine. PAST SURGICAL HISTORY: Noted as: [place], [place] REPORT OF CONSULTATION NAME: JANELLE NI UNIT #: [id number] ROOM: [facility] DOCTOR: NYLA PLEITEZ MD BIRTHDATE: [birth year] 1. Surgery for prolapsed bladder with pessary use as well. 2. Three-vessel coronary artery bypass grafting as well. 4. D and C. SOCIAL HISTORY: The patient is and lives at home. Denies any history of alcohol use or illicit drug use. Noted nonsmoker lifetime. CURRENT MEDICATIONS: Which have been administered during this hospitalization are noted as use of DuoNeb q. 8 hours, Coreg 12.5 mg b.i.d., iron polysaccharide 150 mg p.o. daily, citalopram, glipizide, hydralazine, aspirin, 2 mg of Bumex IV daily, Lantus sliding scale insulin, Imdur, and IV Zosyn. DRUG ALLERGIES: Noted as no known drug allergies. PHYSICAL EXAMINATION: GENERAL: The patient is a 68-year-old female patient who has been noted currently awake and alert, without acute distress this morning of assessment, noted with audible wheezing. Height of 5 feet 4 inches, weight of 252 pounds. VITAL SIGNS: Which are recorded showed normal temperature, respiratory rate of 18-20, heart rate 81-89, blood pressure 127/85-122/65. Pulse oxygen saturation recorded at rest on room air as 100% saturation. HEENT: Examination shows head is atraumatic. Eyes nonicterus. NECK: Supple. CARDIOVASCULAR: S1 and S2 audible. LUNGS: Noted with expiratory wheezing in the lungs bilaterally with decreased breath sounds. There are no crackles. ABDOMEN: Soft, nontender. Bowel sounds present. EXTREMITIES: Noted with mild edema. Bandage of the right foot. VISIBLE SKIN: No lesions or rashes. CENTRAL NERVOUS SYSTEM: Cranial nerves 2 through 12 intact. MUSCULOSKELETAL: Without any acute deformities. LABORATORY DATA: CBC of 02/06/2019 - WBC count 6.8, hemoglobin 9, platelet count was normal. There were no other labs done in the past 3 days. CMP of 02/05/2019 - BUN 64, creatinine 1.77, glucose 101. RADIOLOGY DATA: Reviewed, pertinent to the chest. Chest x-ray that was done on 01/25/2019 was reviewed, no acute abnormalities. The patient had a CT scan chest done on 10/03/2018 and was essentially noted without any acute pulmonary abnormalities at that time. IMPRESSION: 1. The patient who currently admitted to the hospital developed increased symptoms of shortness breath, cough and wheezing. Possible consideration of acute exacerbation of bronchial asthma. Rule out congestive heart failure, fluid overload, resulting in wheezing as well. 2. Wound infection, which has been treated with incision and drainage, currently getting antibiotic and followed up by the Podiatry as well as the Infectious Disease specialist. [place], [place] REPORT OF CONSULTATION NAME: JANELLE NI UNIT #: [id number] ROOM: [facility] DOCTOR: VITALY HUFF MD,NYLA BIRTHDATE: [birth year] PLAN OF TREATMENT: Continuation of the antibiotic. The patient was started on albuterol sulfate 2.5 mg every four hours for management of bronchospasm. In addition, she was started on Solu-Medrol 40 mg b.i.d. Chest x-ray has been ordered, pending to be done for further assessment. Arterial blood gases will be obtained as well to assess overall respiratory status. Additional treatment changes will be made for the patient based on the available all new information and data. The patient was getting IV Bumex 2 mg as well. She will be also ordered lab, which has not been done for the past 3 days to assess the kidney functions, BUN and creatinine with current diuretic, and CBC to assess for any leukocytosis as well. Supportive care, other therapy plan of management, care plan and treatment. Sputum for Gram stain and culture, if the patient expectorates sputum, could be sent. I would not be intending on changing any antibiotics right away at this time. She will be monitored. Thank you for allowing me to participate in the care of this patient. NYLA HAIDER MD CM:CONSTR:REPORT OF CONSULTATION 1415 02/23/19 0819 interface
--- NOTE | ~2019-01-25 | PR ---
[place], [place] PROGRESS NOTE [id number] #: [id number] ROOM: 532 DOCTOR: LUIZA REEVES MD BIRTHDATE: [birth year] DOS: 02/05/2019 SUBJECTIVE: The patient has now decided to go to a rehab center rather than going home with antibiotics and she will require wound dressings and may not be able to manage all that by herself. OBJECTIVE: VITAL SIGNS: Blood pressure 132/80, heart rate 71 beats per minute, breathing 18 times per minute, temperature 98 degrees Fahrenheit. GENERAL APPEARANCE: The patient is alert and oriented x 3, in no visible distress. HEENT AND NECK: Exam within normal limits. CARDIOVASCULAR SYSTEM: Heart rate is regular in rate and rhythm. S1 and S2 normally audible. LUNGS: Clear to auscultation. ABDOMEN: Soft, nontender. No obvious organomegaly. Bowel sounds are present. EXTREMITIES: Right heel wound dressing. IMPRESSION: 1. The patient is status post incision and drainage of right heel abscess, requires antibiotics for 6 weeks, being followed by Infectious Disease specialist and her foot doctors. 2. Type 2 diabetes mellitus. Blood sugars being monitored and treated and well controlled. 3. Diabetic nephropathy, chronic kidney disease stage 3B. 4. Peripheral arterial disease, [id number]-fmwsdnvg, evaluated by Dr. Lucas. 5. Iron deficiency anemia, treated with iron supplements. 6. Benign essential hypertension, treated and controlled. 7. Coronary artery disease of [place] vessels without chest pains. The patient remains on isosorbide. 8. Presently, patient is being treated with Zosyn intravenously. LUIZA REEVES MD CM:PNTRANS [id number] LUIZA REEVES MD 02/06/19 1254 interface
--- NOTE | ~2019-01-25 | PR ---
[place], [place] PROGRESS NOTE NAME: JANELLE NI [facility] #: [id number] UNIT #: [id number] ROOM: 532 DOCTOR: PRUDENCIO ROLAND DPM BIRTHDATE: [birth year] DOS: 02/03/2019 SUBJECTIVE: The patient was seen in for postop incision and drainage of the right heel. The patient is resting comfortably in bed without acute discomfort. OBJECTIVE FINDINGS: Wound VAC is intact. No signs of breakthrough bleeding. Negative Homans sign. No signs of complication. Results of the pathology report revealed fragments of inflamed and necrotic tissue. PAS was negative for fungal organisms. No definitive foreign body was noted. ASSESSMENT: Postop right incision and drainage. PLAN: Ordered the wound VAC to be changed as it is due to be changed and we will follow the patient while she is inhouse and on an outpatient basis. PRUDENCIO ROLAND DPM CM:PNJASPER [id number] PRUDENCIO ROLAND DPM 02/03/19 1508 interface
--- NOTE | ~2019-01-25 | PR ---
[place], [place] PROGRESS NOTE NAME: JANELLE NI UNIT #: [id number] ROOM: 532 DOCTOR: LUIZA REEVES MD BIRTHDATE: [birth year] DOS: 02/01/2019 SUBJECTIVE: The patient continues to improve. OBJECTIVE: GENERAL APPEARANCE: The patient is alert and oriented x 3, in no visible distress. VITAL SIGNS: Blood pressure 114/59, heart rate of 70 beats per minute, afebrile. HEENT AND NECK: Exam within normal limits. CARDIOVASCULAR SYSTEM: Heart rate is regular in rate and rhythm. S1 and S2 normally audible. LUNGS: Clear to auscultation. ABDOMEN: Soft, nontender. No obvious organomegaly. Bowel sounds are present. EXTREMITIES: Without significant cyanosis or edema. IMPRESSION: 1. Dressing status post infection, drainage and wound incision and drainage by Dr. Prather, on wound VAC now. 2. Right foot pain after surgery being controlled with Vicodin. The patient is comfortable. 3. Peripheral arterial disease, jkyi-es-eykbrugt, evaluated by Dr. Lucas. 4. Diabetic nephropathy, chronic kidney disease stage 3b. 5. Iron deficiency anemia. Hemoglobin 7.8. 6. Infectious Disease following and has recommended 6 weeks of IV meropenem at rehabilitation. LUIZA REEVES MD CM:PNTRANS [id number] LUIZA REEVES MD 02/01/192001 interface
[~2019-01-25 09:04] MED LIST changes: +CEFUROXIME AXE250 MG PO; -HYDRALAZINE HC100 MG PO
[2019-01-25 09:07] VITALS: BP 123/77
[2019-01-25 09:23] LABS: BASO % 0.2 % (0.0-1.0); EOS # 0.1 10*3/uL (0.0-0.4); EOS % 0.9 % (1.0-4.0); HEMATOCRIT 28.8 % (37.0-47.0); HEMOGLOBIN 8.9 g/dl (12.0-16.0); LYMPH # 1.1 10*3/uL (1.3-4.4); LYMPH % 8.7 % (27.0-41.0); MEAN CELL VOLUME 87.8 fl (81.0-99.0); MEAN CORPUSCULAR HGB 27.1 pg (27.0-31.0); MEAN CORPUSCULAR HGB CONC 30.9 g/dl (33.0-37.0); MEAN PLATELET VOLUME 10.2 fl (9.6-12.3); MONO # 1.1 10*3/uL (0.1-1.0); MONO % 8.6 % (3.0-9.0); NEUT # 10.3 10*3/uL (2.3-7.9); NEUT % 81.1 % (47.0-73.0); PLATELET COUNT AUTOMATED 241 10*3/uL (130-400); RED BLOOD COUNT 3.28 10*6/uL (4.10-5.10); RED CELL DISTRI WIDTH 14.7 % (0-14.5); WHITE BLOOD COUNT 12.7 10*3/uL (4.8-10.8)
[2019-01-25 09:32] LABS: ACT PARTIAL THROMBO TIME 23.1 SECONDS (20.8-31.5); INTERNATIONAL NORM RATIO 1.1 (2.0-3.5)
[2019-01-25 09:46] LABS: ALBUMIN 2.8 gm/dl (3.1-4.5); ALKALINE PHOSPHATASE 72 U/L (45-117); BUN 44 mg/dl (7-24); CHLORIDE 101 mmol/L (98-107); CREATININE 1.82 mg/dL (0.55-1.02); POTASSIUM 5.1 mmol/L (3.5-5.1); SGOT/AST 16 IU/L (3-35); SGPT/ALT 27 U/L (12-78); SODIUM 135 mmol/L (136-145); TOTAL PROTEIN 7.7 gm/dL (6.4-8.2)
[2019-01-25 09:49] LABS: TROPONIN I < 0.015 ng/ml (<0.045)
[2019-01-25 10:01] VITALS: BP 130/76
--- NOTE | 2019-01-25 10:59 | NUR ---
ROOM ASSIGNED 532.
--- NOTE | 2019-01-25 11:00 | NUR ---
Time: 1100 A 68 year old FEMALE admitted to 5E under services of DR. LEANDRO MCNEILL,LUIZA Sands Pt. arrived via wheel chair from ER. Chief complaint: DYSPNEA, FOOT WOUND. TELE MONITOR APPLIED. MARNI DUPONT
--- NOTE | 2019-01-25 12:39 | NUR ---
DR. REEVES AWARE OF ADMISSION, ADMISSION ORDERS RECEIVED. AWARE OF WOUND OT FOOT, ASKED FOR WOUND CARE TO SEE PATIENT AND GIVE RECOMMENDATIONS.
--- NOTE | 2019-01-25 13:32 | NUR ---
TYLENOL GIVEN FOR COMPLAINTS OF FOOT PAIN. WILL MONITOR FOR EFFECTIVENESS
[2019-01-25 16:00] VITALS: BP 126/65
[2019-01-25 20:00] VITALS: BP 125/60
--- NOTE | 2019-01-25 20:32 | NUR ---
PT REQUESTED AND GIVEN NORCO FOR C/O RIGHT FOOT PAIN PT RATES PAIN 8/10 WILL MONITOR
[2019-01-26] VITALS: BP 132/67
[2019-01-26 06:52] LABS: BASO % 0.3 % (0.0-1.0); EOS # 0.2 10*3/uL (0.0-0.4); EOS % 1.4 % (1.0-4.0); HEMATOCRIT 26.9 % (37.0-47.0); HEMOGLOBIN 8.3 g/dl (12.0-16.0); LYMPH # 1.6 10*3/uL (1.3-4.4); LYMPH % 11.8 % (27.0-41.0); MEAN CELL VOLUME 87.1 fl (81.0-99.0); MEAN CORPUSCULAR HGB 26.9 pg (27.0-31.0); MEAN CORPUSCULAR HGB CONC 30.9 g/dl (33.0-37.0); MEAN PLATELET VOLUME 10.5 fl (9.6-12.3); MONO # 1.2 10*3/uL (0.1-1.0); MONO % 8.9 % (3.0-9.0); NEUT # 10.3 10*3/uL (2.3-7.9); NEUT % 77.1 % (47.0-73.0); PLATELET COUNT AUTOMATED 285 10*3/uL (130-400); RED BLOOD COUNT 3.09 10*6/uL (4.10-5.10); RED CELL DISTRI WIDTH 14.9 % (0-14.5); WHITE BLOOD COUNT 13.4 10*3/uL (4.8-10.8)
[2019-01-26 07:05] LABS: CREATININE 1.79 mg/dL (0.55-1.02); POTASSIUM 4.2 mmol/L (3.5-5.1)
--- NOTE | 2019-01-26 08:20 | NUR ---
Spoke with Dr. Fritz regarding podiatry consult she gave orders and stated will see the patient later today.
--- NOTE | 2019-01-26 08:21 | NUR ---
JANELLE NI [id number] Please refer to the physician's history and physical for past medical history, comorbid conditions, and allergies. Diagnosis: CELLULITIS DYSPNEA Isma Score: 20,LOW OR NO RISK WOUND DESCRIPTIONS: Location of the wound: right plantar aspect of foot Thickness: Full Size: 4.2cm x 5.0cm x 0.5cm Tunneling: none Undermining: none Sinus Tract: none Presence of Exudate: Purulent Amount: Light Color: Black, yellow, red Odor: Foul Periwound Skin Appearance: Erythema Wound edges: approximated Pain (associated with wound): very tender to touch How does patient state this happened? pt stated that is started cracking about 1 week ago and she then developed this area the reason she came in was due to the increase in pain she stated that she had previous surgeries done by Dr. Branch. Surface the patient is resting on: Isoflex SKIN PREVENTION RECOMMENDATION: 1. Pressure redistribution support surface as appropriate 2. Elevate heels 3. Remove boots/TEDS every shift and reapply 4. Head of bed 30 degrees as tolerated 5. Assess nutrition and hydration 6. Manage moisture 7. Avoid the use of containment devices while in bed 8. Use absorptive products on surfaces limit layers of linens on bed 9. Turn and reposition every 1-2 hours in bed and every 1 hour in chair as tolerated 10. Weight shifts every 15 minutes while up in chair 11. Offloading with pillows or device to keep heels elevated off bed 12. Monitor skin at least every shift 13. Inspect under medical devices twice a day WOUND TREATMENT RECOMMENDATIONS: Consult podiatry for possible debridement if studies allow. Venous and arterial studies to ble's imaging studies to right foot due to non-healing wound.
--- NOTE | 2019-01-26 08:49 | NUR ---
PT RESTING IN BED. NO DISTRESS NOTED. WILL MONITOR
[2019-01-26 09:00] VITALS: BP 129/64
[2019-01-26 12:00] VITALS: BP 131/66
--- NOTE | 2019-01-26 12:30 | NUR ---
DR MASON HERE TO SEE PT
--- NOTE | 2019-01-26 12:49 | NUR ---
RIGHT FOOT DRESSING DONE ORDERED
--- NOTE | 2019-01-26 13:30 | NUR ---
PT MEDICATED WITH NORCO FOR C/O RIGHT FOOT PAIN PT RATES PAIN 06/09 WILL MONITOR
--- NOTE | 2019-01-26 14:23 | NUR ---
Customer Experience Strategist in to talk to patient. Patient states lives at home with her son. She has another son that lives in [place] and a daughter that lives in [place]. There are 0 steps in the home. There is a wheelchair ramp. Physician: Dr. Maximo Leal Pharmacy: [facility] Home health services: none Patient's level of ADLs: MINIMAL ASSIST Patient has working utilities: yes DME: walker, cane Follow-up physician's appointment after d/c: she prefers to make her own follow up appt after discharge Does patient want to access PORTAL?: no Discharge plan discussed with patient. She lives at home with her son. He has received help and is doing good. She is independent in her ADLs and ambulates with a walker or a cane. She does have a wheelchair ramp. Discussed home health care services and she denies any home needs at this time. She states her son has been taking good care of her. When medically stable she will be discharged to home. Lelo Garnett RN
[2019-01-26 16:00] VITALS: BP 118/59
[2019-01-26 20:00] VITALS: BP 105/51
--- NOTE | 2019-01-26 20:15 | NUR ---
PT RESTING IN BED. RESP-EASY AND REGULAR. DRESSING RIGHT HEEL D/I. NO C/O AT THIS TIME. CALL LIGHT IN REACH. SEE SHIFT ASSESSMENT.
[2019-01-26 22:00] VITALS: BP 152/78
--- NOTE | 2019-01-26 22:00 | NUR ---
RESTING IN BED. BSG-251, SEE EMAR. TOLERATED ROUTINE MED WITH NO PROBLEM. CALL LIGHT IN REACH.
[2019-01-27] VITALS: BP 121/61
--- NOTE | 2019-01-27 00:10 | NUR ---
RESTING IN BED. TOLERATED ROUTINE IV MEDICATION. NO C/O AT THIS TIME. CALL LIGHT IN REACH. SEE SHIFT ASSESSMENT.
--- NOTE | 2019-01-27 04:00 | NUR ---
SLEEPING IN BED ON RIGHT SIDE. RESP-EASY AND REGULAR. CALL LIGHT IN REACH.
--- NOTE | 2019-01-27 06:00 | NUR ---
SLEEPING IN BED, AWAKENS EASILY. BSG-178, SEE EMAR. NO C/O AT THIS TIME. CALL LIGHT IN REACH.
[2019-01-27 06:49] LABS: CREATININE 1.88 mg/dL (0.55-1.02); POTASSIUM 4.6 mmol/L (3.5-5.1)
[2019-01-27 07:20] LABS: BASO % 0.3 % (0.0-1.0); EOS # 0.2 10*3/uL (0.0-0.4); EOS % 1.4 % (1.0-4.0); HEMATOCRIT 25.7 % (37.0-47.0); HEMOGLOBIN 7.8 g/dl (12.0-16.0); LYMPH % 9.3 % (27.0-41.0); MEAN CELL VOLUME 86.5 fl (81.0-99.0); MEAN CORPUSCULAR HGB 26.3 pg (27.0-31.0); MEAN CORPUSCULAR HGB CONC 30.4 g/dl (33.0-37.0); MEAN PLATELET VOLUME 10.5 fl (9.6-12.3); MONO % 8.9 % (3.0-9.0); NEUT # 8.8 10*3/uL (2.3-7.9); NEUT % 79.7 % (47.0-73.0); PLATELET COUNT AUTOMATED 210 10*3/uL (130-400); RED BLOOD COUNT 2.97 10*6/uL (4.10-5.10); RED CELL DISTRI WIDTH 14.9 % (0-14.5); WHITE BLOOD COUNT 11.1 10*3/uL (4.8-10.8)
[2019-01-27 08:00] VITALS: BP 118/64; BP 122/70
--- NOTE | 2019-01-27 08:05 | NUR ---
24 HR chart check completed.
--- NOTE | 2019-01-27 09:00 | NUR ---
RESTING IN BED. RESPIRATIONS EASY. LUNGS DIMINISHED, CLEAR. PULSE OX 97% RA. TRACE RLE EDEMA NOTED WITH DRESSING DRY AND INTACT. CALL LIGHT WITHIN REACH. NO VOICED COMPLAINTS
--- NOTE | 2019-01-27 09:05 | NUR ---
DR PERRY HERE TO ASSESS PATIENT AND DISCUSS PLAN OF CARE
--- NOTE | 2019-01-27 09:34 | NUR ---
REQUESTED AND RECEIVED NORCO PER PRN ORDER FOR COMPLAINTS OF RIGHT HEEL PAIN RATING A 10. CALL LIGHT WITHIN REACH. WILL MONITOR FOR EFFECTIVENESS
--- NOTE | 2019-01-27 11:00 | NUR ---
EARLIER MED EFFECTIVE. SLEEPING
[2019-01-27 11:23] LABS: FERRITIN 43.3 ng/mL (10.0-291.0)
[2019-01-27 12:00] VITALS: BP 112/68
--- NOTE | 2019-01-27 13:11 | NUR ---
DRESSING CHANGE COMPLETE TO RLE. PATIENT TOLERATED WELL
[2019-01-27 16:00] VITALS: BP 108/56
--- NOTE | 2019-01-27 16:51 | NUR ---
REQUESTED AND RECEIVED NORCO PER PRN ORDER FOR COMPLAINTS OF RIGHT HEEL PAIN RATING A 10. CALL LIGHT WITHIN REACH. WILL MONITOR FOR EFFECTIVENESS
--- NOTE | 2019-01-27 18:00 | NUR ---
MEDS EFFECTIVE, SLEEPING. RESPIRATIONS EASY.
[2019-01-27 20:00] VITALS: BP 113/60
--- NOTE | 2019-01-27 21:30 | NUR ---
DR NIKKI ARIAS HERE TO ASSESS PATIENT. NEW ORDERS RECEIVED.
--- NOTE | 2019-01-27 21:40 | NUR ---
TRANSPORTED OFF FLOOR VIA WC FOR CT
--- NOTE | 2019-01-27 22:00 | NUR ---
RETURNED FROM CT
--- NOTE | 2019-01-27 23:28 | NUR ---
PATIENT REQUESTED AND RECIEVED PRN ORDER FOR BRITTANY FOR COMPLAINTS OF "THROBBING" PAIN TO RIGHT FOOT. SHE RATES IT AN 8/. WILL MONITOR FOR EFFECTIVENESS OF MED.
--- NOTE | 2019-01-27 23:35 | NUR ---
STAT CT RESULTS CALLED TO DR. ARIAS PER REQUEST. NO NEW ORDERS GIVEN AT THIS TIME.
[2019-01-28] VITALS: BP 121/53
--- NOTE | 2019-01-28 00:45 | NUR ---
NORCO EFFECTIVE PER PT ASSESSMENT. PT IS ASLEEP AT THIS TIME WITH NO OBVIOUS SIGNS OF PAIN OR DISCOMFORT. WILL CONTINUE TO MONITOR.
--- NOTE | 2019-01-28 04:00 | NUR ---
PT IS ASLEEP IN BED AT THIS TIME WITH NO S/S OF PAIN OR DISCOMFORT. RESPIRATIONS ARE EASY AND NONLABORED. BED IS LOCKED AND IN THE LOWEST POSITION. CALL LIGHT IS WITHIN REACH. WILL CONTINUE TO MONITOR.
[2019-01-28 06:32] LABS: BASO % 0.2 % (0.0-1.0); EOS # 0.1 10*3/uL (0.0-0.4); EOS % 0.9 % (1.0-4.0); HEMATOCRIT 25.7 % (37.0-47.0); HEMOGLOBIN 7.8 g/dl (12.0-16.0); LYMPH # 1.3 10*3/uL (1.3-4.4); LYMPH % 10.2 % (27.0-41.0); MEAN CELL VOLUME 86.2 fl (81.0-99.0); MEAN CORPUSCULAR HGB 26.2 pg (27.0-31.0); MEAN CORPUSCULAR HGB CONC 30.4 g/dl (33.0-37.0); MEAN PLATELET VOLUME 10.1 fl (9.6-12.3); MONO # 1.1 10*3/uL (0.1-1.0); MONO % 8.7 % (3.0-9.0); NEUT # 10.3 10*3/uL (2.3-7.9); NEUT % 79.7 % (47.0-73.0); PLATELET COUNT AUTOMATED 227 10*3/uL (130-400); RED BLOOD COUNT 2.98 10*6/uL (4.10-5.10); RED CELL DISTRI WIDTH 14.8 % (0-14.5); WHITE BLOOD COUNT 12.9 10*3/uL (4.8-10.8)
[2019-01-28 06:38] LABS: CREATININE 1.93 mg/dL (0.55-1.02); POTASSIUM 4.5 mmol/L (3.5-5.1)
[2019-01-28 08:00] VITALS: BP 128/70; BP 140/68
--- NOTE | 2019-01-28 08:20 | NUR ---
DR PERRY HERE TO ASSESS PATIENT AND DISCUSS PLAN OF CARE. WOUND ASSESSED
--- NOTE | 2019-01-28 09:35 | NUR ---
REQUESTED AND RECEIVED NORCO PER PRN ORDER FOR COMPLAINTS OF RIGHT HEEL PAIN RATING A 7. CALL LIGHT WITHIN REACH. WILL MONITOR FOR EFFECTIVENESS
--- NOTE | 2019-01-28 11:00 | NUR ---
EARLIER PAIN MEDS APPEAR EFFECTIVE. SITTING AT BEDSIDE, VISITING WITH FAMILY. RESPIRATIONS EASY. CALL LIGHT WITHIN REACH. NO FURTHER VOICED COMPLAINTS
[2019-01-28 12:00] VITALS: BP 121/52
--- NOTE | 2019-01-28 15:31 | NUR ---
DR ARIAS IN TO SEE PT. PT WILL BE NPO AFTER MIDNIGHT FOR I&D OF RIGHT FOOT ABCESS TOMORROW. SHIFT DIRECTOR NOTIFIED.
[2019-01-28 16:00] VITALS: BP 128/60
--- NOTE | 2019-01-28 16:40 | NUR ---
MEDICATED WITH NORCO PER PRN ORDER FOR COMPLAINTS OF RIGHT HEEL PAIN RATING A 6. CALL LIGHT WITHIN REACH. WILL MONITOR FOR EFFECTIVENESS
--- NOTE | 2019-01-28 18:00 | NUR ---
SITTING AT BEDSIDE WITH NO ACUTE DISTRESS NOTED. RESPIRATIONS EASY. CALL LIGHT WITHIN REACH. NO VOICED COMPLAINTS
[2019-01-28 20:00] VITALS: BP 126/69
--- NOTE | 2019-01-28 22:30 | NUR ---
ATTEMPTED TO REACH DR FOREMAN REGARDING CONSULT. DR HEWITT CORPORATE LOGISTICS MANAGER AND STATES TO "CALL AHSAN IN THE MORNING."
[2019-01-29] VITALS (8 sets, daily range): BP systolic 100–141; BP diastolic 52–71
--- NOTE | 2019-01-29 09:00 | NUR ---
Printed Forms Proofreader in to see patient. No new needs or request at this time. She denies any home needs. When medically stable she will be discharged to home.
--- NOTE | 2019-01-29 09:52 | NUR ---
A VOICEMAIL WAS LEFT ON DR. JACKSON PHONE FOR THE NEW CONSULT.
--- NOTE | 2019-01-29 10:24 | NUR ---
PT IS SITTING UP IN BED AT THIS TIME. PT HAS BEEN NPO SINCE MIDNIGHT. HAS NO COMPLAINTS AT THIS TIME, DENIES PAIN AND NO SOB NOTED. PT IS PLEASANT AND HAS APPROPRIATE SPEECH. PT'S BED IN LOWEST LOCKED POSITION AND CALL LIGHT WITHIN REACH.
--- NOTE | 2019-01-29 16:48 | NUR ---
PT IS IN VISIBLE PAIN. PT RATES FOOT PAIN AT A 10. PRN NORCO GIVEN AT THIS TIME. WILL MONITOR FOR EFFECTIVENESS.
--- NOTE | 2019-01-29 20:37 | NUR ---
24 HR chart check completed.
--- NOTE | 2019-01-29 21:00 | NUR ---
SLEEPING, AWAKENS EASILY. RESPIRATIONS EASY. LUNGS DIMINISHED, CLEAR. PULSE OX 93% RA. TRACE RLE EDEMA. DRESSING INTACT TO RIGHT FOOT. CALL LIGHT WITHIN REACH. NO VOICED COMPLAINTS
--- NOTE | 2019-01-29 22:00 | NUR ---
BSG 130, NO INSULIN NEEDED PER SS. 30 UNITS LANTUS SCHEDULED, PATIENT REQUESTING TO "ONLY TAKE 20 UNITS." WILL RECHECK IN AM
--- NOTE | 2019-01-29 22:09 | NUR ---
MEDICATED WITH NORCO PER PRN ORDER FOR COMPLAINTS OF RIGHT FOOT PAIN RATING A 4. CALL LIGHT WITHIN REACH. WILL MONITOR FOR EFFECTIVENESS
[2019-01-30] VITALS: BP 103/43; BP 110/52
--- NOTE | 2019-01-30 | NUR ---
EARLIER MEDS APPEAR EFFECTIVE. SLEEPING. RESPIRATIONS EASY. VSS. CALL LIGHT WITHIN REACH
--- NOTE | 2019-01-30 03:00 | NUR ---
CONTINUES TO SLEEP WITH NO ACUTE DISTRESS NOTED
--- NOTE | 2019-01-30 05:50 | NUR ---
AWAKE, SITTING AT BEDSIDE. MEDICATED WITH NORCO PER PRN ORDER FOR C/O PAIN TO RIGHT FOOT RATING A 4. DRESSING INTACT. CALL LIGHT WITHIN REACH. WILL MONITOR FOR EFFECTIVENESS
--- NOTE | 2019-01-30 06:15 | NUR ---
BSG 112
[2019-01-30 08:00] VITALS: BP 100/46
--- NOTE | 2019-01-30 09:10 | NUR ---
Dr. Boyd stated to keep the post op dressing intact.
[2019-01-30 12:00] VITALS: BP 102/56
[2019-01-30 13:07] LABS: ACID FAST SPEC PROCESSING Direct Inoculation (.); ACID FAST SPEC PROCESSING Tissue Grinding (.)
--- NOTE | 2019-01-30 14:10 | NUR ---
DR FOREMAN CALLED UNIT RE: PVD CONSULT. HE WAS QUESTIONING IF PODITARY WANTED ANYTHING DONE RE: RIGHT FOOT. PODITARY CALLED SPOKE WITH RESIDENT DR MCCABE. HE STATES NO THEY DON'T WANT ANYTHING DONE AT THIS TIME.
[2019-01-30 16:00] VITALS: BP 121/61
--- NOTE | 2019-01-30 19:00 | NUR ---
PT AWAKE IN BED DURING BEDSIDE SHIFT REPORT. NO C/O VOICED. DRSG TO RT FOOT DRY AND INTACT. CALL LIGHT IN REACH.
[2019-01-30 20:00] VITALS: BP 111/41
--- NOTE | 2019-01-30 21:00 | NUR ---
PT'S BS 263. PT REFUSING SS COVERAGE AT THIS TIME. PT ACCEPTS LANTUS INSULIN. WILL MONITOR. CALL LIGHT IN REACH.
[2019-01-31] VITALS: BP 106/63
--- NOTE | 2019-01-31 00:12 | NUR ---
24 HR chart check completed.
--- NOTE | 2019-01-31 05:53 | NUR ---
PT MEDICATED W/TWO NORCO FOR C/O RT FOOT PAIN. 04/09. PT ATTEMPTED TO GO TO BR FOR A BM. PT INCONTINENT OF BM. INCONTINENCE CARE GIVEN, BED LINENS CHANGED AND PT ASSISTED BACK TO BED. RLE ELEVATED ON PILLOW. CALL LIGHT IN REACH.
[2019-01-31 08:00] VITALS: BP 102/50
--- NOTE | 2019-01-31 09:00 | NUR ---
Police Officer Booking in to see patient. Discussed home health care services and she is agreeable. When given a list of agencies she chose [facility]. She is requesting a hospital bed. Notified Dr. Castle. When medically stable she will be discharged to home with [facility] services.
--- NOTE | 2019-01-31 11:02 | NUR ---
DR CHAVARRIA ANSWERING SERVICE NOTIFIED OF CONSULT.
[2019-01-31 12:00] VITALS: BP 130/62
--- NOTE | 2019-01-31 14:01 | NUR ---
PODITARY PLACED WOUND VAC TO RIGHT FOOT. PT TOLERATED WELL.
[2019-01-31 16:00] VITALS: BP 116/37
[2019-01-31 20:00] VITALS: BP 120/51
--- NOTE | 2019-01-31 20:05 | NUR ---
chart check complete
[2019-02-01] VITALS: BP 113/56
[2019-02-01 08:00] VITALS: BP 128/68
[2019-02-01 12:00] VITALS: BP 130/67
--- NOTE | 2019-02-01 14:36 | NUR ---
Physical Therapy Aides Teacher in to see patient. Discussed short term SNF and she is agreeable. When given a list of facilities [facility] bakery worker conveyor line notified.
--- NOTE | 2019-02-01 15:26 | NUR ---
SW faxed over a referral to [facility]/ Janice for pt's placement. FREDERIC Greer MSW,HAZ TECH
[2019-02-01 16:00] VITALS: BP 114/59
--- NOTE | 2019-02-01 16:04 | NUR ---
DR. DOSHI ON UNIT TO SEE PT. STATED HE WAS OK WITH MAKING A MIDLINE HAPPEN TO ASSIST WITH ANTIBIOTICS UPON DISCHARGE
--- NOTE | 2019-02-01 16:55 | NUR ---
DR. DOSHI UPDATED ON ZOSYN EXPIRATION, PT TO [facility] WITH MEDICATION AT THIS TIME PER TO
[2019-02-01 20:00] VITALS: BP 126/64
[2019-02-02] VITALS: BP 108/58
--- NOTE | 2019-02-02 06:10 | NUR ---
JANELLE NI [id number] Please refer to the physician's history and physical for past medical history, comorbid conditions, and allergies. Diagnosis: CELLULITIS DYSPNEA Isma Score: 16,AT RISK WOUND DESCRIPTIONS: Location of the wound: left breast Type of wound: fungal Thickness: Partial Size: 12.5cm x 15.0cm x 0.1 Tunneling: none Undermining: none Sinus Tract: none Presence of Exudate: Serous Amount: Light Color: Red Odor: Foul Periwound Skin Appearance: Normal Wound edges: approximated Pain (associated with wound): none at time of assessment How does patient state this happened? pt didn't state how this happened Right breast is pink and blanchable at time of assessment. No open areas noted at this time. No draiange noted at this time to right breast. Surface the patient is resting on: Position Pro SKIN PREVENTION RECOMMENDATION: 1. Pressure redistribution support surface as appropriate 2. Elevate heels 3. Remove boots/TEDS every shift and reapply 4. Head of bed 30 degrees as tolerated 5. Assess nutrition and hydration 6. Manage moisture 7. Avoid the use of containment devices while in bed 8. Use absorptive products on surfaces limit layers of linens on bed 9. Turn and reposition every 1-2 hours in bed and every 1 hour in chair as tolerated 10. Weight shifts every 15 minutes while up in chair 11. Offloading with pillows or device to keep heels elevated off bed 12. Monitor skin at least every shift 13. Inspect under medical devices twice a day WOUND TREATMENT RECOMMENDATIONS: Continue nystatin poweder every 12 hours as per order.
--- NOTE | 2019-02-02 06:54 | NUR ---
Spoke with Dr. Boyd this am and he wanted to make sure that the wound care center was notified that they wanted HBO therapy for this patient. This nurse informed him that I spoke with Tammi and Mary matias in the wound care center yesterday about it and will speak to them this morning when they arrive to check the status and inform Dr. Boyd once I am updated from the wound care center.
[2019-02-02 08:00] VITALS: BP 134/72
--- NOTE | 2019-02-02 08:19 | NUR ---
Spoke with Dr. Boyd regarding HBO therapy after speaking with Mary Mg director of the wound care center. Mary Stated that we need an actual order put in for HBO therapy referal on discharge, we need a d/c date so patient can start hbo therapy and because of the CT scan not showing evidence of osteo may not be an appropriate dx for HBO therapy. If Dr. Boyd has any questions he is to call the wound care clinic and speak with Tammi.
--- NOTE | 2019-02-02 09:00 | NUR ---
Senior Environmental Scientist in to see patient. Discussed [facility] not being able to take her due to not being able to meet her needs. She verbalized an understanding. When given a list of facilities she chose [facility]. business continuity planner notified.
--- NOTE | 2019-02-02 09:16 | NUR ---
MEDICATED WITH PRN NORCO PER ORDER AND REQUEST FOR R FOOT PAIN.
--- NOTE | 2019-02-02 11:05 | NUR ---
JANELLE IN [id number] Please refer to the physician's history and physical for past medical history, comorbid conditions, and allergies. Diagnosis: CELLULITIS DYSPNEA Isma Score: 16,AT RISK WOUND DESCRIPTIONS: Patient has wound vac intact to right lower extremity patient was informed that I spoke with Dr. Boyd this morning about HBO therapy upon discharge she stated she isn't sure if she will be able to tolerate going in a close space like that she is also concern with why she is still having a good amount of pain. Wound vac is set at 125mmHg low intesity contious therapy. No strikethough drainage noted Dr. Boyd stated he will change the dressing later this afternoon. Surface the patient is resting on: Isoflex SKIN PREVENTION RECOMMENDATION: 1. Pressure redistribution support surface as appropriate 2. Elevate heels 3. Remove boots/TEDS every shift and reapply 4. Head of bed 30 degrees as tolerated 5. Assess nutrition and hydration 6. Manage moisture 7. Avoid the use of containment devices while in bed 8. Use absorptive products on surfaces limit layers of linens on bed 9. Turn and reposition every 1-2 hours in bed and every 1 hour in chair as tolerated 10. Weight shifts every 15 minutes while up in chair 11. Offloading with pillows or device to keep heels elevated off bed 12. Monitor skin at least every shift 13. Inspect under medical devices twice a day WOUND TREATMENT RECOMMENDATIONS: Continue order per podiatry don't remove post op dressing.
[2019-02-02 12:00] VITALS: BP 136/64
[2019-02-02 16:00] VITALS: BP 126/59
--- NOTE | 2019-02-02 18:55 | NUR ---
ONE UNSUCCESSFUL ATTEMPT WITH POWERGLIDE.
[2019-02-02 20:00] VITALS: BP 117/51
--- NOTE | 2019-02-02 22:00 | NUR ---
PATIENT BLOOD SUGAR 316. REFUSED COVERAGE. SAID SHE JUST WANTS TO TAKE HER SCHEDULED INSULIN AND NOT THE COVERAGE. NO SIGNS OR SYMPTOMS OF DISTRESS NOTED. DENIES COMPLAINTS OF PAIN OR DISCOMFORT. CALL LIGHT IN REACH.
[2019-02-03] VITALS: BP 151/62
--- NOTE | 2019-02-03 05:25 | NUR ---
PATIENT MEDICATED WITH NORCO FOR COMPLAINTS OF RIGHT FOOT PAIN. WILL CONTINUE TO MONITOR. CALL LIGHT IN REACH.
[2019-02-03 12:00] VITALS: BP 119/57
[2019-02-03 16:00] VITALS: BP 128/69
[2019-02-03 21:13] VITALS: BP 119/56
[2019-02-04] VITALS: BP 115/50
--- NOTE | 2019-02-04 00:52 | NUR ---
DR. DELAROSA'S ANSWERING SERVICE NOTIFIED OF DR. DELAROSA NEEDING TO CALL THIS NURSE FOR CRITICAL TROPONIN OF O.079.
[2019-02-04 08:00] VITALS: BP 122/78
[2019-02-04 12:00] VITALS: BP 117/60
[2019-02-04 16:00] VITALS: BP 127/68
--- NOTE | 2019-02-04 16:26 | NUR ---
PT C/O FOOT PAIN RATING AN 8 OUT OF 10. REQUESTING AND RECEIVED AT THIS TIME NORCO, GIVEN PER PRN ORDER. WILL MONITOR FOR EFFECTIVENESS.
--- NOTE | 2019-02-04 17:54 | NUR ---
PT STATING PRN WAS EFFECTIVE.
--- NOTE | 2019-02-04 19:00 | NUR ---
PT AWAKE IN BED DURING BEDSIDE SHIFT REPORT. NO C/O VOICED AT PRESENT TIME. WOUND VAC INTACT TO RT FOOT AND FUNCTIONING ORDERED. CALL LIGHT IN REACH.
[2019-02-04 20:00] VITALS: BP 120/57
[2019-02-05] VITALS: BP 115/53
--- NOTE | 2019-02-05 | NUR ---
DR. FOREMAN NOTIFIED PT HAD 11 BEAT RUN OF VTACH AND PT ASYMPTOMATIC. T.O. RCVD FOR COREG 12.5 MG BID AND TO ADMINISTER DOSE NOW, D/C COREG 6.25MG, STAT EKG, AND BMP,MG,CA LEVELS STAT.
[2019-02-05 00:55] LABS: CREATININE 1.77 mg/dL (0.55-1.02); POTASSIUM 3.8 mmol/L (3.5-5.1)
[2019-02-05 08:00] VITALS: BP 132/80
--- NOTE | 2019-02-05 11:18 | NUR ---
PAGED PRICING ASSOCIATE ID PHYSICIAN, TO CLARIFY IV ANTIBIOTIC ORDERS
--- NOTE | 2019-02-05 11:28 | NUR ---
SPOKE TO DR. CHAVARRIA, REORDERED ZOSYN WHILE INPATIENT. DR. CHAVARRIA DOES WANT PATIENT TO HAVE A PICC/MIDLINE PLACED AND TO GO HOME ON IV ANTIBIOTICS
[2019-02-05 12:00] VITALS: BP 148/64
--- NOTE | 2019-02-05 12:10 | NUR ---
PODIATRY IN TO SEE PATIENT, REMOVED WOUND VAC. ORDER FOR AQUACEL AG, 4X4 AND KERLEX TO BE DONE DAILY.
--- NOTE | 2019-02-05 12:11 | NUR ---
PT STATES PAIN IN RIGHT HEEL07/10, NORCO GIVEN PER PATIENT REQUEST
--- NOTE | 2019-02-05 14:04 | NUR ---
PT SENT TO SURGERY FOR PICC LINE PLACEMENT
--- NOTE | 2019-02-05 14:20 | NUR ---
RETURN FROM SURGERY
--- NOTE | 2019-02-05 14:24 | NUR ---
DISCUSS WITH PATIENT FACILITY FOR IV ANTIBIOTIC AND DRESSING CHANGES, PT STATES SHE DOES NOT WANT TO GO TO A FACILITY, SHE WANTS TO GO HOME. WILL NOTIFY CARE MANAGEMENT
--- NOTE | 2019-02-05 14:34 | NUR ---
[facility] stated they are reviewing this patient and checking her benefits. They are waiting for a return call from [facility].
[2019-02-05 16:00] VITALS: BP 115/54
--- NOTE | 2019-02-05 17:51 | NUR ---
NORCO GIVEN PRIOR TO DRESSING CHANGE TO RIGHT HEEL
--- NOTE | 2019-02-05 18:54 | NUR ---
DRESSING CHANGED TO RIGHT HEEL PER ORDERS, PT TOLERATED FAIR
[2019-02-05 20:00] VITALS: BP 128/76
[2019-02-06] VITALS: BP 138/72
[2019-02-06 06:00] VITALS: BP 121/66
--- NOTE | 2019-02-06 06:21 | NUR ---
PT GIVEN ORANGE JUICE, CRACKERS W/PEANUT BUTTER FOR BS OF 66. PT ASYMPTOMATIC FOR HYPOGLYCEMIA AT THIS TIME.
[2019-02-06 08:22] LABS: BASO % 0.3 % (0.0-1.0); EOS # 0.2 10*3/uL (0.0-0.4); EOS % 2.6 % (1.0-4.0); HEMATOCRIT 29.5 % (37.0-47.0); LYMPH # 0.6 10*3/uL (1.3-4.4); LYMPH % 9.2 % (27.0-41.0); MEAN CELL VOLUME 90.8 fl (81.0-99.0); MEAN CORPUSCULAR HGB 27.7 pg (27.0-31.0); MEAN CORPUSCULAR HGB CONC 30.5 g/dl (33.0-37.0); MEAN PLATELET VOLUME 9.7 fl (9.6-12.3); MONO # 0.7 10*3/uL (0.1-1.0); MONO % 10.4 % (3.0-9.0); NEUT # 5.3 10*3/uL (2.3-7.9); NEUT % 77.2 % (47.0-73.0); PLATELET COUNT AUTOMATED 183 10*3/uL (130-400); RED BLOOD COUNT 3.25 10*6/uL (4.10-5.10); RED CELL DISTRI WIDTH 17.5 % (0-14.5); WHITE BLOOD COUNT 6.8 10*3/uL (4.8-10.8)
[2019-02-06 12:00] VITALS: BP 127/61
--- NOTE | 2019-02-06 12:14 | NUR ---
Faxed IV Ertapenem prescription 500 mg daily for 6 weeks to [facility], . Awaiting return call.
--- NOTE | 2019-02-06 12:30 | NUR ---
Faxed referral to [facility] for home health care services and IV antibiotics.
--- NOTE | 2019-02-06 13:13 | NUR ---
Patient insurance is out of network for [facility], they are unable to accept this patient.
--- NOTE | 2019-02-06 13:40 | NUR ---
SW called pt's dtr to let her know that her mom will be discharge later this afternoon. I can have her mom call when she is ready for order picker. FREDERIC Greer MSW,INSPECTOR PAWNSHOP DETAIL
--- NOTE | 2019-02-06 14:51 | NUR ---
Spoke to Dorys at [facility] regarding home IV antibiotics. Patient has [facility] Medicare. Her cost would be $3.40. She has a $3950 out of pocket deductible which she has met $31. $150 would be required at delivery. Spoke to patient and her son who is at the bedside. Son is agreeable to pay the $150 upfront. Explained to patient and son [facility] will bill insurance first and then bill patient for what the insurance doesn't pay. Discussed with patient a payment plan can be set up with [facility]. Discussed SNF and she refuses. When medically stable she will be discharged to home. Spoke to Larisa from [facility] regarding home IV antibiotics. Larisa has to check with management if [facility] can first dose in the home as the hospital doesn't give Invanz in house. Awaiting return call.
--- NOTE | 2019-02-06 15:00 | NUR ---
REPORT RECEIVED FROM KENNETH BECKFORD
--- NOTE | 2019-02-06 15:42 | NUR ---
Spoke to Larisa from [facility]. [facility] is able to give patient's IV antibiotics at home but are requiring patient have an epi pen kit and the nurse will have to stay with the patient through the infusion tomorrow. Dr. Castle notified of patient needing an epi pen kit prior to discharge.
[2019-02-06 16:00] VITALS: BP 144/73
--- NOTE | 2019-02-06 19:00 | NUR ---
PT AWAKE IN BED DURING BEDSIDE SHIFT REPORT. PT EXPRESSING SADNESS D/T NOT BEING ABLE TO GO HOME AND NEEDING TO GO TO REHAB FOR IV THERAPY. PT REMINDED THAT IT IS FOR ONLY A SHORT LENGTH OF TIME AND GIVES HER THE OPPORTUNITY TO CONTINUE REHAB. PT AGREEABLE. CALL LIGHT IN REACH.
[2019-02-06] MEDS ORDERED: EPIPEN 2-P0.3 MG/0.3 SC (19:33)
[2019-02-06 20:00] VITALS: BP 124/61
--- NOTE | 2019-02-06 20:15 | NUR ---
DR. REEVES PHONED RE PT CONTINUED WHEEZING AND SOB AND POULTRY KILLER COUGH. T.O. RCVD FOR DUONEBS EVERY 8 HRS.
--- NOTE | 2019-02-06 22:00 | NUR ---
PT BS 152 PER GLUCOMETER. PT REFUSING COVERAGE AND ONLY ACCEPTING 20 UNITS OF LANTUS. PT ATE HS SNACK.
[2019-02-07] VITALS: BP 137/69
--- NOTE | 2019-02-07 06:09 | NUR ---
PT STATES SHE FEELS "WOOZY" BS 123. PT SITTING ON SIDE OF BED EATING CRACKERS. WILL MONITOR.
[2019-02-07 06:35] VITALS: BP 124/69
--- NOTE | 2019-02-07 07:27 | NUR ---
Discussed with patient regarding cost of home IV antibiotics. She states she is not able to afford the cost and would like to go to [facility]. Explained [facility] is not able to meet her needs at this time. [facility] and [facility] are out of network. Will reach out to her insurance [facility] [place] to see which SNFs are in network. Attempted to reach out to [facility] to make aware of patient not needing home IV antibiotics at this time due to cost. They are currently not open, they open at 0830, will call then. Notified Faith at [facility] of patient not being discharged today.
[2019-02-07 07:30] VITALS: BP 128/70; BP 130/90
--- NOTE | 2019-02-07 07:40 | NUR ---
Spoke to Faith at [facility] regarding in-network SNFs. In network SNFs are [facility] (unable to meet patient needs), [facility]. [facility], [facility], [facility]go, Lyla, and [facility]. marble worker/senior production planner notified. Will discuss with patient.
--- NOTE | 2019-02-07 07:55 | NUR ---
Discussed with patient [facility] in [place] and she asked why wouldn't any of the closer facilities take care. Explained those facilities are not in network with her insurance company and she verbalized an understanding. Explained social staff worker will check with [facility] to see if they are able to meet her needs and if not we can discuss other options and pt verbalized an understanding.
--- NOTE | 2019-02-07 08:02 | NUR ---
Notified Larisa at [facility] to cancel home health as patient is going to a SNF
--- NOTE | 2019-02-07 08:30 | NUR ---
Spoke to Kellen at [facility] regarding cancelling home IV antibiotics. Kellen will pass message along to
--- NOTE | 2019-02-07 11:14 | NUR ---
SW faxed over pt's paperwork to Jennifer and pt will leave when medically stable. FREDERIC Greer PANEL COVERER,HOSPITAL MEDICINE DIRECTOR
[2019-02-07 12:00] VITALS: BP 130/90
--- NOTE | 2019-02-07 12:00 | NUR ---
Called to patient's room to discuss discharge planning. Patient states staff and Dr. Castle have been in and told her she as being discharged to [facility]. Discussed with patient our conversation from earlier today and she remembered. Explained to patient [facility] is not able to meet her needs at this time and [facility] and [facility] are of network with her insurance. She verbalized an understanding and remains agreeable to go to [facility] in [place]. general production worker following.
--- NOTE | 2019-02-07 13:25 | NUR ---
Hospital exemption competed online in HENS system for the vista.
--- NOTE | 2019-02-07 15:58 | NUR ---
PT GIVEN TYLENOL PER PRN ORDER
--- NOTE | 2019-02-07 15:58 | NUR ---
COMPLAINT OF PAIN 5 ON 1-10 SCALE ON RIGHT FOOT. PT INFORMED OF NOT GETTING DISCHARGED TODAY.
[2019-02-07 16:00] VITALS: BP 143/72
--- NOTE | 2019-02-07 17:48 | NUR ---
TYLENOL EFFECTIVE, PT STATES DECREASED, ATE DINNER WITHOUT DIFFICULTY, PLEASANT COOPERATIVE
[2019-02-07 20:00] VITALS: BP 136/64
[2019-02-08] VITALS: BP 144/91
[2019-02-08 08:00] VITALS: BP 120/70
--- NOTE | 2019-02-08 08:05 | NUR ---
Voicemail left for [facility] [place] [employer] at [phone] opt #3 regarding discharge collaboration for SNF and for peer to peer for inpatient denial. Awaiting return call.
--- NOTE | 2019-02-08 10:36 | NUR ---
Spoke to Sal at [facility] regarding peer to peer discussion. Peer to peer discussion set up for tomorrow Tuesday at 2:30pm with Dr. Castle. Dr. Castle notified to call [phone] opt 1, opt 1, opt 3 and to tell machine operator hop picker he is calling for a scheduled physician review with her 48 and case ref # of [id number] with Dr. Ghosh. Faxed SNF needs to Sal also at [phone]. internet media planner notified.
[2019-02-08 12:00] VITALS: BP 140/74
--- NOTE | 2019-02-08 15:19 | NUR ---
Spoke to Sal from [facility] [place] [facility] regarding SNF. The once a day antibiotics and wound care changes are not enough to skill. Discussed with Dr. Castle. PT/OT orders entered. associate financial planner notified.
--- NOTE | 2019-02-08 15:50 | NUR ---
Discussed with patient her insurance denying SNF for daily wound care and IV antibiotics. Informed patient PT/OT will start working with patient tomorrow to evaluate her therapy needs. She verbalized an understanding.
[2019-02-08 16:00] VITALS: BP 156/76
[2019-02-08 20:00] VITALS: BP 157/76
[2019-02-09] VITALS: BP 127/85
--- NOTE | 2019-02-09 07:19 | NUR ---
PT. INSTURCTED ON FLUTTER DEVICE. DEMONSTRATED A GOOD UNDERSTANDING. RETURNED DEMONSTRATION WITHOUT ISSUE. INSTUCTED TO USE Q1H.
--- NOTE | 2019-02-09 07:25 | NUR ---
JANELLE NI [id number] Please refer to the physician's history and physical for past medical history, comorbid conditions, and allergies. Diagnosis: CELLULITIS DYSPNEA Isma Score: 16,AT RISK WOUND DESCRIPTIONS: Location of the wound: right plantar aspect of foot ( revisit ) Type of wound: Surgical Thickness: Full Size: 2.2cm x 4.0cm x 1.8cm Tunneling: none Undermining: none Sinus Tract: none Presence of Exudate: Purulent Amount: Light Color: Black, yellow, red Odor: None Periwound Skin Appearance: Erythema Wound edges: approximated Pain (associated with wound): tender to touch Surface the patient is resting on: Isoflex SKIN PREVENTION RECOMMENDATION: 1. Pressure redistribution support surface as appropriate 2. Elevate heels 3. Remove boots/TEDS every shift and reapply 4. Head of bed 30 degrees as tolerated 5. Assess nutrition and hydration 6. Manage moisture 7. Avoid the use of containment devices while in bed 8. Use absorptive products on surfaces limit layers of linens on bed 9. Turn and reposition every 1-2 hours in bed and every 1 hour in chair as tolerated 10. Weight shifts every 15 minutes while up in chair 11. Offloading with pillows or device to keep heels elevated off bed 12. Monitor skin at least every shift 13. Inspect under medical devices twice a day WOUND TREATMENT RECOMMENDATIONS: Clarify current order per podiatry aquacel ag, 4x4, kerlex to right heel wound change daily need cleansing agent.
[2019-02-09 08:00] VITALS: BP 123/65
--- NOTE | 2019-02-09 08:46 | NUR ---
NOTIFIED OF CHANGES WITH BREATHING. PT HAS DEVELOPED RHONCHI AND WHEEZING SINCE BEING ADMITTED. 2L NC INTACT. POX 100%. ORDERED TO CONSULT FOR SOB.
--- NOTE | 2019-02-09 09:00 | NUR ---
Auto Design Checker in to see patient. Discussed therapy and patient and nurse states therapy just worked with her. Discussed another option to SNF if she is not able to go to [facility], discussed patient coming into the hospital once a day to have the antibiotics she needs, she states she would be willing to do that if she had a ride. Discussed her children being able to bring her and she said her daughter probably could but she has a mentally handicap child and would have to ask her. Discharge plan undecided at this time.
--- NOTE | 2019-02-09 09:03 | NUR ---
RODY WITH PT REQUESTING WEIGHT BEARING STATUS TO RT FOOT. CALLED TO CLARIFY. STATED PT CAN WEIGHT BEAR TOLERATED ON THE RT FOOT. SEE ORDERS.
--- NOTE | 2019-02-09 09:20 | NUR ---
Occupational Therapy evaluation completed on 5 with full eval to follow. Precautions include fall risk, right foot wound,IVs,SOB with min exertion,moderate complexity level 70827 via chart review, testing and evaluation. During the evaluation patient had several periods of significant SOB and c/o dizziness. Recommend OT per pOC and SNF to enable return home alone to independent living. Thank you for this referral. Fabiola Alejo OTR/l
--- NOTE | 2019-02-09 09:27 | NUR ---
IN TO SEE PT.
--- NOTE | 2019-02-09 09:34 | NUR ---
PHYSICAL THERAPY Patient evaluated on 5, full evaluation to follow. Continue with PT as per plan of care with fall, 02, wound right LE and acute debility precautions. Will require SNF. PAtient is moderate complexity via chart review, tests and evaluation: 59479. Thank you for this referral. Lashanda Bacon,PT
--- NOTE | 2019-02-09 10:47 | NUR ---
Faxed PT/OT notes to [facility]. Awaiting response. service planner notified.
[2019-02-09 12:00] VITALS: BP 154/86
[2019-02-09 14:22] LABS: ABG BASE EXCESS 1.7 mmol/L (-2.0-2.0); ABG HCO3 25.1 mmol/l (22-26); ARTERIAL BLOOD GAS PCO2 35.1 mmHg (35-45); ARTERIAL BLOOD GAS PH 7.465 (7.35-7.45)
[2019-02-09 15:23] LABS: BASO % 0.1 % (0.0-1.0); EOS % 0.1 % (1.0-4.0); HEMATOCRIT 31.9 % (37.0-47.0); HEMOGLOBIN 9.7 g/dl (12.0-16.0); LYMPH # 0.8 10*3/uL (1.3-4.4); LYMPH % 9.9 % (27.0-41.0); MEAN CELL VOLUME 88.6 fl (81.0-99.0); MEAN CORPUSCULAR HGB 26.9 pg (27.0-31.0); MEAN CORPUSCULAR HGB CONC 30.4 g/dl (33.0-37.0); MEAN PLATELET VOLUME 9.5 fl (9.6-12.3); MONO # 0.9 10*3/uL (0.1-1.0); MONO % 12.2 % (3.0-9.0); NEUT % 77.4 % (47.0-73.0); PLATELET COUNT AUTOMATED 194 10*3/uL (130-400); RED CELL DISTRI WIDTH 17.3 % (0-14.5); WHITE BLOOD COUNT 7.7 10*3/uL (4.8-10.8)
--- NOTE | 2019-02-09 15:41 | NUR ---
MADE AWARE OF ABG RESULTS. ORDERED BIPAP PRN & HS 10/07 WITH BACK UP OF 8. KIN RT, MADE AWARE.
[2019-02-09 15:52] LABS: ALBUMIN 2.7 gm/dl (3.1-4.5); CREATININE 1.7 mg/dL (0.55-1.02); POTASSIUM 4.2 mmol/L (3.5-5.1); TOTAL PROTEIN 7.5 gm/dL (6.4-8.2)
[2019-02-09 16:00] VITALS: BP 149/80
--- NOTE | 2019-02-09 16:03 | NUR ---
BSG 70. PROVIDED PT WITH SNACKS. WILL RE-CHECK IN ABOUT 1 HR PER PT REQUEST.
--- NOTE | 2019-02-09 16:23 | NUR ---
NOTIFIED OF CXR FINDINGS. NO NEW ORDERS GIVEN AT THIS TIME.
--- NOTE | 2019-02-09 16:41 | NUR ---
AWARE OF CXR RESULTS. NEW ORDER FOR CXR IN AM.
--- NOTE | 2019-02-09 17:48 | NUR ---
BSG 156 FOLLOWING FOOD INTAKE.
[2019-02-09 20:00] VITALS: BP 147/84
--- NOTE | 2019-02-09 22:35 | NUR ---
ON FLOOR. DISCUSSED THIS PATIENT'S MIDLINE IN L UPPER ARM OCCLUDED AND UNABLE TO FLUSH. AWARE THAT THIS IS A LEANDRO PATIENT AND THAT PATIENT IS TO HAVE PICC LINE PER 'S NOTE. PER , ORDER CATH FLOW TO BE GIVEN TONIGHT AND THEN CALL TO CLARIFY WHETHER THEY WANT PICC OR MIDLINE TOMORROW.
[2019-02-10] VITALS: BP 154/69
--- NOTE | 2019-02-10 01:04 | NUR ---
IV CATHFLOW GIVEN PER 'S ORDERS.
--- NOTE | 2019-02-10 03:54 | NUR ---
PATIENT OFF BIPAP, UP TO USE BATHROOM. PLACED ON 2 L/M NC
--- NOTE | 2019-02-10 05:40 | NUR ---
L UPPER ARM MIDLINE NOW FLUSHING WHEN PATIENT POSITIONED ON R SIDE. IV ABX CONNECTED & INFUSING WITHOUT ISSUE. WILL MONITOR. BSG 188. PATIENT REQUESTING TO HOLD INSULIN AND TAKE ORAL MEDICATION ONLY. STATES SHE IS AFRAID HER SUGAR WILL DROP. PT EDUCATED ABOUT S/S OF HYPOGLYCEMIA. VERBALIZES UNDERSTANDING.
[2019-02-10 06:24] LABS: HEMATOCRIT 28.4 % (37.0-47.0); HEMOGLOBIN 8.7 g/dl (12.0-16.0); LYMPH # 0.4 10*3/uL (1.3-4.4); LYMPH % 10.7 % (27.0-41.0); MEAN CELL VOLUME 87.9 fl (81.0-99.0); MEAN CORPUSCULAR HGB 26.9 pg (27.0-31.0); MEAN CORPUSCULAR HGB CONC 30.6 g/dl (33.0-37.0); MEAN PLATELET VOLUME 10.1 fl (9.6-12.3); MONO # 0.1 10*3/uL (0.1-1.0); MONO % 1.5 % (3.0-9.0); NEUT # 2.9 10*3/uL (2.3-7.9); NEUT % 87.2 % (47.0-73.0); PLATELET COUNT AUTOMATED 163 10*3/uL (130-400); RED BLOOD COUNT 3.23 10*6/uL (4.10-5.10); RED CELL DISTRI WIDTH 17.1 % (0-14.5); WHITE BLOOD COUNT 3.4 10*3/uL (4.8-10.8)
[2019-02-10 06:42] LABS: ALBUMIN 2.3 gm/dl (3.1-4.5); CREATININE 1.62 mg/dL (0.55-1.02); TOTAL PROTEIN 6.7 gm/dL (6.4-8.2)
[2019-02-10 08:00] VITALS: BP 120/80
--- NOTE | 2019-02-10 08:31 | NUR ---
PT DOES NOT WANT ON BIPAP AT THIS TIME.
--- NOTE | 2019-02-10 11:34 | NUR ---
NOTIFIED DR PERRY OF RESULTS OF FECAL OCCULT AND CT. NEW ORDERS GIVEN FOR DR PICHARDO CONSULT AND TO ADD LEVAQUIN.
[2019-02-10 12:00] VITALS: BP 149/69
--- NOTE | 2019-02-10 12:52 | NUR ---
PHYSICIAN WAS NOTIFIED OF DR. PICHARDO CONSULT. RESPONSE OF NOTIFICATION WAS NOA, H&H ON TUESDAY AND CALL HIM WITH RESULTS.. ALEIDA NGUYEN A
--- NOTE | 2019-02-10 14:22 | NUR ---
PHYSICAL THERAPY Patient seen this PM for her therapy session. Pt sitting EOB upon arrival. Patient performed seated B LE ther-ex, AROM, for LE strength, endurance and function- for performance of gait, functional transfers and activities: marches, LAQs, ankle PF/DF x10 reps. Cues and supervision for technique and progression of exercises. Pt performed STS/SPT transfer bed<>bedside commode with CGA-minAx1 and cues for WBing status of R LE, technqiue and safety. Pt performed STS x 2 with CGA-Frank for completion of hygiene/dressing task, tolerating ~25-30 seconds with each trial, WBAT RLE. Pt sitting EOB at session end with call light and tray table within reach. Pt voiced no c/o this date. Fadumo Umanzor, ALCOHOL RUBBER
[2019-02-10 16:00] VITALS: BP 146/62
--- NOTE | 2019-02-10 19:30 | NUR ---
BEDSIDE REPORT RECIEVED FROM DAY SHIFT RN. PT IS RESTING IN BED AT THIS TIME AND DENIES ANY PAIN OR DISCOMFORT. RESPIRATIONS ARE EASY AND NONLABORED ON 2L NC. DRESSING TO RIGHT FOOT WOUND IS CLEAN, DRY AND INTACT. PT DENIES ANY NEEDS AT THIS TIME. WILL CONTINUE TO MONITOR.
[2019-02-10 20:00] VITALS: BP 149/74
--- NOTE | 2019-02-10 21:42 | NUR ---
PT REQUESTED 25 UNITS OF LANTUS RATHER THAN 30 UNITS ORDERED FOR A BLOOD SUGAR OF 277. PT STATES SHE HAS BEEN HAVING PROBLEMS DROPPING THROUGHOUT THE NIGHT.
[2019-02-11] VITALS: BP 156/89
--- NOTE | 2019-02-11 04:30 | NUR ---
PT IS ASLEEP IN BED AT THIS TIME WITH NO OBVIOUS SIGNS OF PAIN OR DISCOMFORT. RESPIRATIONS ARE EASY AND NONLABORED. BED IS LOCKED AND IN THE LOWEST POSITION. WILL CONTINUE TO MONITOR.
[2019-02-11 06:43] LABS: HEMATOCRIT 28.4 % (37.0-47.0); HEMOGLOBIN 8.7 g/dl (12.0-16.0); MEAN CELL VOLUME 89.6 fl (81.0-99.0); MEAN CORPUSCULAR HGB 27.4 pg (27.0-31.0); MEAN CORPUSCULAR HGB CONC 30.6 g/dl (33.0-37.0); PLATELET COUNT AUTOMATED 153 10*3/uL (130-400); RED BLOOD COUNT 3.17 10*6/uL (4.10-5.10); RED CELL DISTRI WIDTH 17.1 % (0-14.5); WHITE BLOOD COUNT 3.6 10*3/uL (4.8-10.8)
[2019-02-11 07:07] LABS: ALBUMIN 2.4 gm/dl (3.1-4.5); CREATININE 1.73 mg/dL (0.55-1.02); POTASSIUM 4.2 mmol/L (3.5-5.1)
[2019-02-11 08:00] VITALS: BP 130/78
[2019-02-11 08:07] LABS: ACANTHOCYTES FEW; ATYPICAL LYMPHS 2 % (0-0); OVALOCYTES FEW; PLATELET SUFFICIENCY NORMAL (NORMAL); TOTAL CELLS COUNTED 100 #CELLS
[2019-02-11 12:00] VITALS: BP 144/73
[2019-02-11 16:00] VITALS: BP 134/50
--- NOTE | 2019-02-11 19:41 | NUR ---
BEDSIDE REPORT RECIEVED FROM DAY SHIFT RN. PT IS RESTING IN BED AT THIS TIME AND DENIES ANY PAIN OR DISCOMFORT. RESPIRATIONS ARE EASY AND NONLABORED ON ROOM AIR. PT DENIES ANY NEEDS AT THIS TIME. WILL CONTINUE TO MONITOR.
[2019-02-11 20:00] VITALS: BP 146/71
[2019-02-12] VITALS: BP 152/75
[2019-02-12 06:27] LABS: EOS % 0.2 % (1.0-4.0); HEMATOCRIT 27.9 % (37.0-47.0); HEMOGLOBIN 8.5 g/dl (12.0-16.0); LYMPH # 0.3 10*3/uL (1.3-4.4); LYMPH % 6.2 % (27.0-41.0); MEAN CELL VOLUME 88.3 fl (81.0-99.0); MEAN CORPUSCULAR HGB 26.9 pg (27.0-31.0); MEAN CORPUSCULAR HGB CONC 30.5 g/dl (33.0-37.0); MEAN PLATELET VOLUME 10.4 fl (9.6-12.3); MONO # 0.2 10*3/uL (0.1-1.0); MONO % 3.6 % (3.0-9.0); NEUT # 4.8 10*3/uL (2.3-7.9); NEUT % 89.8 % (47.0-73.0); PLATELET COUNT AUTOMATED 168 10*3/uL (130-400); RED BLOOD COUNT 3.16 10*6/uL (4.10-5.10); RED CELL DISTRI WIDTH 17.1 % (0-14.5); WHITE BLOOD COUNT 5.3 10*3/uL (4.8-10.8)
[2019-02-12 06:59] LABS: ALBUMIN 2.4 gm/dl (3.1-4.5); CREATININE 1.69 mg/dL (0.55-1.02); POTASSIUM 4.1 mmol/L (3.5-5.1); TOTAL PROTEIN 6.7 gm/dL (6.4-8.2)
[2019-02-12 08:00] VITALS: BP 138/70
--- NOTE | 2019-02-12 09:00 | NUR ---
Salary And Wage Administrator in to see patient. No new needs or request at this time. When medically stable and auth received she will be discharged to [facility] in [place]. road worker following.
--- NOTE | 2019-02-12 09:18 | NUR ---
OT NOTE Pt was seen this A.M. 1:1 for 28 minute OT session. Upon arrival pt was supine in bed. Pt identified by name and and had complaints of 2/10 R foot pain. Pt transferred supine to sit EOB with SBA. While sitting EOB requested for pt to doff and bernadine her socks. Pt was unable to complete due to becoming SOB while forward flexed at the waist. Educated pt on personal compensatory technique of bringing her leg up over her knee to avoid becoming SOB. Pt was unable to complete at this time due to increased edema in BLE. Educated and demonstrated use of LB adaptive equipment including sock aid and gis software developer for increased I in LB dressing. Pt then demonstrated with first sock pt required Frank for inital start of sock onto the aid and for improving technique to bernadine over her heel. With the second sock pt was able to bernadine with SBA. Sit to stand completed from bed level with CGA for safety. Functional mobility completed into the bathroom with CGA and use of w/w. There she transferred on/off standard commode with CGA and use of grab bar for UE support. She then stood sink side while washing her hands, face, and completing hair care with SBA. Pt was able to tolerate aprox 3 minutes standing sink side during tasks before requiring a seated rest break due to reports of feeling a little "winded". Educated pt on energy conservation and work simplification techniques for enhanced safety and I in self care tasks. Throughout session pt's SpO2 was checked and she remained within functional limits on room air. Pt returned to the EOB where she transferred sit to supine with SBA. There she was left with call light in hand, tray table in place, and bed alarm activated for safety. Continue with rec D/C plan to SNF. NISA De La Torre/Aaron
--- NOTE | 2019-02-12 10:46 | NUR ---
PHYSICAL THERAPY informed consent given, pt identified by name and . pt presented supine in bed pulse 80 bpm, spO2 96% room air. supine to sit SBA. sitting EOB discussed that pt is wbat on her R foot. STS and stand to sit multiple times CGA from bed, Frank from chair, education on safe hand placement to avoid injury. Static standing balance 1min hands on AD CGA , no LOB presented. Dynamic standing balance without AD reaching B UE across midline x3 challening weight shift, CGA no LOB presented. Walked 20ft x2, 60ft x1 wh walker with wbat on R foot, CGA. seated rests given in between all gait, after walks spO2 never dropped below 94% room air. During gait pt demonstrated touch toe and heel off with R foot.Tug test 29 seconds CGA no LOB presented. Ended treatment pt sitting in chair, call light in reach with ANALY Case in room who stated pt does not need chair alarm. 1:1 treatment with SHALLOT PACKER 15min.
[2019-02-12 12:00] VITALS: BP 122/57
[2019-02-12 16:00] VITALS: BP 155/76
[2019-02-12 20:00] VITALS: BP 142/73
--- NOTE | 2019-02-12 22:12 | NUR ---
ASSUMED CARE OF PATIENT. PATIENT IS RESTING IN BED WITH EASY AND REGULAR RESPERS ON ROOM AIR. ASSESSMENT IS COMPLETE WITH NO C/O OR S/S OF DISTRESS NOTED AT THIS TIME. BED IS LOW, LOCKED, AND CALL LIGHT IS WITHIN REACH. SEE SHIFT ASSESSMENT. 2200 MEDICATIONS GIVEN AT THIS TIME WELL EXCEPT FOR HUMALOG.
--- NOTE | 2019-02-12 23:00 | NUR ---
Pt does not want to wear BiPap tonight.
[2019-02-13] VITALS: BP 151/77
--- NOTE | 2019-02-13 02:30 | NUR ---
PATIENT SLEEPING, CALL LIGHT IS WITHIN REACH.
--- NOTE | 2019-02-13 06:03 | NUR ---
PATIENT AROUSES EASILY FOR ADMINISTRATION OF 0600 MEDICATIONS. CALL LIGHT IS WITHIN REACH.
[2019-02-13 08:00] VITALS: BP 134/78
--- NOTE | 2019-02-13 10:35 | NUR ---
SW sent updates on 02/12 to [facility]. Sent PT & OT to SNF on 02/13. FREDERIC Greer MSW,TAXATION ACCOUNTANT
--- NOTE | 2019-02-13 11:13 | NUR ---
shane stated the insurance company is requesting the hospital faxes updated therapy notes and a discharge plan to as the insurance company is stating they have not reached an agreement with the hospital on discharge plans yet. Contacted nurse case management Lelo Garnett with this information, she is contacting insurance company and faxing therapy notes.
--- NOTE | 2019-02-13 11:24 | NUR ---
Faxed additional clinical information to [facility] at [phone] including progress notes, medications, and therapy notes. Awaiting response.
--- NOTE | 2019-02-13 11:24 | NUR ---
OT NOTE Attempted to see pt this A.M. for OT session and upon arrival pt was getting a breathing treatment. Will check back at a later time/date. NISA De La Torre/Aaron
[2019-02-13 12:00] VITALS: BP 137/53
--- NOTE | 2019-02-13 12:49 | NUR ---
OT NOTE Pt was seen this P.M. 1:1 for 25 minute OT session. Upon arrival pt was supine in bed. Pt identified by name and and had no complaints at this time. Pt transferred supine to sit EOB with SBA. While sitting upright on the EOB pt donned B socks using sock aid previously provided with. Pt was able to bernadine with Frank for inital donning onto aid. Sit to stand completed from bed level with Frank and use of w/w for UE support. Functional mobility completed into the bathroom with CGA and use of w/w while therapist managed IV pole. There she transferred on/off standard commode with Frank CGA for safety. Clothing management completed with CGA and toilet hygiene completed with supervision while seated. Pt then stood sink side while washing her hands and face with CGA. Aprox half way through tasks pt required a seated rest break due to quick onset of fatigue. Throughout entire session pt's SpO2 remained within functional limits on room air. Functional mobility completed back to the recliner where she was left sitting upright with call light in hand, tray table in place, and phone in reach. Continue with rec D/C plan to SNF. NISA De La Torre/Aaron
--- NOTE | 2019-02-13 14:24 | NUR ---
PHYSICAL THERAPY Pt completed sit-std sbax1. Pt educated on proper hand placement. Pt ambulated 30 feet x 1 wheeled walker minax1. Pt educated on step height an dlength. pt educated on stretching of foot and completed proper technique. Pt was seen for 24 minutes Lidia [id number]
--- NOTE | 2019-02-13 15:13 | NUR ---
Insurance called and stated they will be approving patient for snf placement and it will be good for today 02/13/19 and tomorrow 02/14/19 but they need the [facility] to resubmit documents first. Waiting to hear back from [facility] regarding auth.
[2019-02-13 16:00] VITALS: BP 141/71
[2019-02-13] MEDS ORDERED: LEVAQUIN500 M2 PO (17:45)
[2019-02-13] MEDS ORDERED: COREG12.5 M1 PO (17:45)
--- NOTE | 2019-02-13 18:20 | NUR ---
TO BE DISCHARGED TO [facility] VIA AMBULANCE.
--- NOTE | 2019-02-13 19:20 | NUR ---
NURSE TO R\NURSE REPORT GIVEN. PATIENT DISCHARGED VIA [facility] WITH BELONGINGS.
[2019-02-14 05:05] LABS: ADENOVIRUS Negative (Negative); INFLUENZA A Negative (Negative); INFLUENZA B Negative (Negative); METAPNEUMOVIRUS Positive (Negative); PARAINFLUENZA 1 Negative (Negative); PARAINFLUENZA 2 Negative (Negative); PARAINFLUENZA 3 Negative (Negative); RHINOVIRUS Negative (Negative); RSV A Negative (Negative); RSV B Negative (Negative)
--- NOTE | 2019-02-14 08:20 | NUR ---
PHYSICAL THERAPY CO-SIGN I approve of the Phyical Therapy notes written above. RODY DRAPER PT
--- NOTE | 2019-02-14 15:47 | NUR ---
OCCUPATIONAL THERAPY CO-SIGN I approve of the Occupational Therapy notes written above. MARISOL DE LEON OTR/Aaron
[2019-03-04] MEDS ORDERED: LIPITOR20 MG PO (07:35)
[2019-03-09] MEDS ORDERED: LINEZOLID600 MG PO (08:45)
[2019-03-09] MEDS ORDERED: Ipratropium Brom3 ML NEB (08:45)
[2019-03-09] MEDS ORDERED: INVANZ1 GM/50 ML IV (08:45)
[2019-03-09] MEDS ORDERED: PREMARIN30 GM V (08:49)
[2019-03-09] MEDS ORDERED: XARELTO2.5 MG PO (08:49)
[2019-03-12 12:04] LABS: ACID FAST CULTURE Negative (.)
[2019-05-11] MEDS ORDERED: LOW DOSE ASPIRI81 MG PO (20:53)
[2019-05-11] MEDS ORDERED: GLIPIZIDE10 M2 PO (20:54)
[2019-05-11] MEDS ORDERED: COREG6.25 MG PO (20:56)
[2019-05-11] MEDS ORDERED: CRESTOR40 M1 PO (20:57)
[2019-05-11] MEDS ORDERED: DOXYCYCLINE100 MG PO (20:59)
[2019-05-15] MEDS ORDERED: LINEZOLID600 MG PO (10:43)
== END 2019-02-13 18:20 | DRG 579 ==
LOC: ED 09:04 → 5E 10:40 → EDHOLD 10:40 → 5E 10:57
PROVIDERS: Emergency Medicine; Internal Medicine; Internal Medicine Cardiovascular Disease; Internal Medicine Critical Care Medicine; Podiatrist; ADMIT Internal Medicine
PROC: 0HBRXZZ Excision of Toe Nail, External Approach (ICD-10-PCS; 2019-01-28)
PROC: 0J9Q0ZZ Drainage of Right Foot Subcutaneous Tissue and Fascia, Open Approach (ICD-10-PCS; principal; 2019-01-29)
DX: L03.115 Cellulitis of right lower limb (principal); J18.9 Pneumonia, unspecified organism; I50.43 Acute on chronic combined systolic (congestive) and diastolic (congestive) heart failure; L02.611 Cutaneous abscess of right foot; M86.8X7 Other osteomyelitis, ankle and foot; I13.0 Hypertensive heart and chronic kidney disease with heart failure and stage 1 through stage 4 chronic kidney disease, or unspecified chronic kidney disease; J44.1 Chronic obstructive pulmonary disease with (acute) exacerbation; E44.0 Moderate protein-calorie malnutrition; J44.0 Chronic obstructive pulmonary disease with (acute) lower respiratory infection; I42.0 Dilated cardiomyopathy; J45.41 Moderate persistent asthma with (acute) exacerbation; L97.419 Non-pressure chronic ulcer of right heel and midfoot with unspecified severity; F33.0 Major depressive disorder, recurrent, mild; E11.69 Type 2 diabetes mellitus with other specified complication; E11.621 Type 2 diabetes mellitus with foot ulcer; E11.22 Type 2 diabetes mellitus with diabetic chronic kidney disease; N18.3 Chronic kidney disease, stage 3 (moderate); E11.51 Type 2 diabetes mellitus with diabetic peripheral angiopathy without gangrene; I25.10 Atherosclerotic heart disease of native coronary artery without angina pectoris; I48.91 Unspecified atrial fibrillation; E66.9 Obesity, unspecified; D50.9 Iron deficiency anemia, unspecified; K59.09 Other constipation; E11.42 Type 2 diabetes mellitus with diabetic polyneuropathy; E11.65 Type 2 diabetes mellitus with hyperglycemia; R62.7 Adult failure to thrive; Z95.810 Presence of automatic (implantable) cardiac defibrillator; Z68.35 Body mass index [BMI] 35.0-35.9, adult; Z82.49 Family history of ischemic heart disease and other diseases of the circulatory system; Z83.3 Family history of diabetes mellitus; I25.2 Old myocardial infarction; Z95.1 Presence of aortocoronary bypass graft; Z79.82 Long term (current) use of aspirin; Z79.899 Other long term (current) drug therapy

== ENCOUNTER → 2019-04-29 | Outpatient (CLI) | payer MEDICARE ==
[~2019-04-29] MED LIST changes: +CRESTOR40 M1 PO; +EPIPEN 2-P0.3 MG/0.3 SC; +GLIPIZIDE10 M2 PO; +INVANZ1 GM/50 ML IV; +Ipratropium Brom3 ML NEB; +LEVAQUIN500 M2 PO; +LINEZOLID600 MG PO; +LOW DOSE ASPIRI81 MG PO; +PREMARIN30 GM V; +XARELTO2.5 MG PO
== END | disposition home or self-care (01) ==
LOC: RAD 12:02
DX: J90 Pleural effusion, not elsewhere classified (principal); I10 Essential (primary) hypertension; E11.9 Type 2 diabetes mellitus without complications

== ENCOUNTER 2019-07-11 19:42 | Inpatient (IN) | payer MEDICARE, MEDICAID ==
[~2019-07-11] VITALS: Ht 162.5 cm; Wt 103.4 kg
--- NOTE | ~2019-07-11 | WRIGHTHP ---
[place], [place] PATIENT HISTORY AND PHYSICAL EXAM NAME: JANELLE NI [facility] #: [id number] UNIT #: [id number] ROOM: 504 DOCTOR: VIOLETA PERRY MD BIRTHDATE: [birth year] DOS: 07/11/2019 HISTORY OF PRESENT ILLNESS: This patient is very well known to us. She is 69 years old. She had visiting nurse to see her yesterday, they noticed that the left leg was quite red and so they called Dr. Leal's office, who told her to go to the Emergency Room. The patient denies having any chest pains or shortness of breath. Does not have any fever or chills, does not have any abdominal pain, nausea, or emesis. PAST MEDICAL HISTORY: Significant for: 1. Last hospitalization in 04/2019 with systolic congestive heart failure, acute. 2. Coronary artery disease with a history of coronary artery bypass graft. 3. Paroxysmal atrial fibrillation. 4. Chronic obstructive pulmonary disease. 5. Chronic poorly healing ulcer of the left heel. 6. History of AICD pacemaker placement, peripheral vascular disease. 7. Type 2 diabetes mellitus, insulin-dependent 8. Benign hypertension. MEDICATIONS: She is currently on are, do not have a complete list yet, but we are waiting for the pharmacy to bring us the complete list, but she looks like she is on Coreg, citalopram, glipizide, hydralazine, isosorbide, Xarelto, rosuvastatin, and insulin. SOCIAL HISTORY: Nonsmoker, does not use any alcohol, and lives at home. PHYSICAL EXAMINATION: GENERAL: She is awake and alert and oriented. VITAL SIGNS: Graphic trend shows a pressure 119/67, pulse of 71, respirations 18, temperature 97.8. LUNGS: Diminished breath sounds. No wheezes, rales or rhonchi heard. HEART: Regular. ABDOMEN: Obese, soft, nontender. EXTREMITIES: Left leg is red and poorly healing wound noticed on the heel. This is stage 2, but there is no drainage. ASSESSMENT AND PLAN: 1. Cellulitis of the left leg. The patient is placed on IV antibiotics. 2. Chronic systolic congestive heart failure. The patient's chest x-ray shows pleural effusions, mild congestive heart failure. We will restart her diuretics, but the patient does not appear to be in acute CHF. This is a chronic condition. 3. Rule out myocardial infarction protocol, so far have come back negative. 4. Chronic obstructive pulmonary disease, stable without any exacerbation. 5. Type 2 diabetes mellitus, insulin-dependent. Check blood sugars twice a day, coverage scale. [place], [place] PATIENT HISTORY AND PHYSICAL EXAM NAME: JANELLE NI UNIT #: [id number] ROOM: [facility] DOCTOR: VIOLETA PERRY MD BIRTHDATE: [birth year] VIOLETA PERRY MD CM:HISPHYS:PATIENT HISTORY AND PHYSICAL EXAMINATION 6 2 VIOLETA PERRY MD 07/12/1933 interface
--- NOTE | ~2019-07-11 | EKG ---
[place], [place] ELECTROCARDIOGRAM REPORT NAME: JANELLE NI UNIT #: [id number] ROOM: 504 DOCTOR: DICKSON DRAFT REPORT BIRTHDATE: [birth year] [facility] Test Date: 2019-07-12 Test Time: 01:12:52 Pat Name: JANELLE NI Department: Room: 504 Gender: F Eight Arm Operator: Ravi Alfaro : 1950 Requested By: KERRIE WOOD Order Number: [id number] Reading MD: Nicholas Ramirez MD Measurements Intervals [place] Rate: 73 P: WI: QRS: 96 QRSD: 144 T: 259 QT: 485 QTc: 535 Interpretive Statements Afib and V-paced complexes Electronically Signed On 07-12-2019 14:49:50 PDT by Nicholas Ramirez MD CM:EKGRPT:ELECTROCARDIOGRAM REPORT [id number] KERRIE CERVANTES DRAFT REPORT KERRIE WOOD DO
--- NOTE | ~2019-07-11 | EKG ---
[place], [place] ELECTROCARDIOGRAM REPORT NAME: JANELLE NI UNIT #: [id number] ROOM: 504 DOCTOR: DICKSON DRAFT REPORT BIRTHDATE: [birth year] [facility] Test Date: 2019-07-11 Test Time: 22:22:50 Pat Name: JANELLE NI Department: Room: 504 Gender: F Explosives Detonator: Ravi Alfaro : 1950 Requested By: KERRIE WOOD Order Number: [id number] Reading MD: Nicholas Ramirez MD Measurements Intervals [place] Rate: 70 P: -52 MI: 466 QRS: 245 QRSD: 181 T: 75 QT: 512 QTc: 553 Interpretive Statements Ventricular-paced rhythm Electronically Signed On 07-12-2019 14:47:20 PDT by Nicholas Ramirez MD CM:EKGRPT:ELECTROCARDIOGRAM REPORT [id number] KERRIE CERVANTES DRAFT REPORT KERRIE WOOD DO
--- NOTE | ~2019-07-11 | DS ---
[place], [place] DISCHARGE SUMMARY NAME: JANELLE NI [facility] #: [id number] UNIT #: [id number] ROOM: 504 DOCTOR: VIOLETA PERRY MD BIRTHDATE: [birth year] DOS: 07/16/2019 DIAGNOSES: 1. Cellulitis of the left lower leg, which has resolved. 2. Poorly healing wound of the right heel for procedure as an outpatient. 3. Peripheral vascular disease, awaiting transfer to [facility] for angiogram. 4. Complete prolapse of the uterus with difficulty with micturition. 5. Paroxysmal atrial fibrillation. 6. Coronary artery disease with history of coronary artery bypass graft. 7. Cardiomyopathy, ejection fraction 25%, which is compensated. No evidence of acute congestive heart failure. 8. Chronic obstructive pulmonary disease. 9. Automatic implantable cardioverter defibrillator pacemaker placement. 10. Type 2 diabetes mellitus, insulin-dependent with hypoglycemia. 11. Benign hypertension. 12. Acute kidney injury. 13. Chronic kidney disease. DISCHARGE MEDICATIONS: This patient's medications on discharge are IV fluids, saline at 30 mL an hour, citalopram 20 daily, Lantus 30 units at bedtime, hydralazine 50 q.8, Tylenol 650 q.8 p.r.n., vitamin D 5000 units daily, Rocaltrol 0.25 mcg daily, Bumex 1 mg daily, isosorbide 60 b.i.d., Xarelto 2.5 b.i.d., aspirin 81 daily, Coreg 12.5 b.i.d., iron 325 q. 8. Glipizide and Zyvox have been discontinued. HOSPITAL COURSE: The patient is 69 years old. The patient comes in with complaints of redness and swelling of the left lower leg. After being evaluated in the ER, she was admitted with diagnosis of cellulitis, was placed on IV antibiotics. With IV antibiotics, the cellulitis has resolved completely. She does have poorly healing small wound of the right heel. Podiatry did see the patient and they have plans to do procedure as an outpatient. She has chronic severe peripheral vascular disease, had an angiogram in 2018 at [facility] Records reviewed. A peroneal artery was dilated. At that time, Dr. Lucas was reconsulted and he plans to take the patient to [facility] for further treatment plan. She has cardiomyopathy, is not a good candidate for any surgical procedures. She does have chronic systolic CHF, but no evidence of acute CHF during this admission. She was continued on the diuretics. The CLINDAMYCIN CAUSED NAUSEA and the patient has had a poor appetite. Blood sugars have been low and became hypoglycemic on Tuesday morning, so the Glucotrol has been discontinued. She also has been hypotensive because of poor p.o. intake. Slow IV hydration was started. Hypotension has caused acute kidney injury and is most likely not a candidate for high contrast load. This was discussed with Dr. Lucas in detail. [place], [place] DISCHARGE SUMMARY [facility] [id number] UNIT #: [id number] ROOM: 504 DOCTOR: VIOLETA PERRY MD BIRTHDATE: [birth year] She has complete prolapse of the uterus and not a candidate for any surgery. She has difficulty voiding due to the complete prolapse and has had a Barber catheter here. This has been removed and has been able to void on her own, but in the future may need to consider a chronic indwelling Barber catheter. The patient is overall stable, plan to discharge to [facility] this morning. VIOLETA PERRY MD CM:JERAMY [id number] VIOLETA PERRY MD 07/16/19 0912 interface
--- NOTE | ~2019-07-11 | PR ---
[place], [place] PROGRESS NOTE NAME: JANELLE NI [facility] #: [id number] UNIT #: [id number] ROOM: 504 DOCTOR: VIOLETA PERRY MD BIRTHDATE: [birth year] DOS: 07/13/2019 SUBJECTIVE: The patient complains of some minimal nausea. OBJECTIVE: VITAL SIGNS: Graphic trend shows a pressure of 116/68, pulse of 70, respirations 18, temperature 97.8. LUNGS: Clear. HEART: Regular. ABDOMEN: Soft. EXTREMITIES: Decreased redness noticed in the left lower leg. ASSESSMENT AND PLAN: 1. Cellulitis of the left lower leg, on IV antibiotics. 2. Nausea could be from antibiotics. We will monitor. Zofran has been ordered. 3. Chronic poorly healing wound of the right heel, which is much improved. X-ray of the foot was negative. Arterial Doppler shows diffuse peripheral vascular disease, but she is not a candidate for any surgery. 4. Complete prolapse of the uterus. She has already been evaluated by Dr. Noble last admission as well as seen by [facility]. Again, she is not a candidate for any surgical intervention because of severe cardiomyopathy. VIOLETA PERRY MD CM:PNTRANS [phone] VIOLETA PERRY MD 07/13/192035 interface
--- NOTE | ~2019-07-11 | EKG ---
[place], [place] ELECTROCARDIOGRAM REPORT NAME: JANELLE NI UNIT #: [id number] ROOM: 504 DOCTOR: DICKSON DRAFT REPORT BIRTHDATE: [birth year] [facility] Test Date: 2019-07-11 Test Time: 19:47:20 Pat Name: JANELLE NI Department: Room: 504 Gender: F Sweatband Shaper: : 1950 Requested By: KERRIE WOOD Order Number: [id number] Reading MD: Nicholas Ramirez MD Measurements Intervals [place] Rate: 74 P: NM: QRS: -19 QRSD: 116 T: 211 QT: 454 QTc: 504 Interpretive Statements Probably Afib with intermittent V-paced complexes Incomplete left bundle branch block Nonspecific T wave abnormality Electronically Signed On 07-12-2019 14:44:17 PDT by Nicholas Ramirez MD CM:EKGRPT:ELECTROCARDIOGRAM REPORT [id number] KERRIE CERVANTES DRAFT REPORT KERRIE WOOD DO
--- NOTE | ~2019-07-11 | PR ---
[place], [place] PROGRESS NOTE [id number] #: [id number] ROOM: 504 DOCTOR: VIOLETA PERRY MD BIRTHDATE: [birth year] DOS: 07/14/2019 SUBJECTIVE: The patient is still a little nauseous this morning. OBJECTIVE: VITAL SIGNS: Graphic trend shows a pressure of 97/51, pulse of 78, respirations 18, temperature 97.9. LUNGS: Clear. HEART: Regular. ABDOMEN: Obese, soft, nontender. EXTREMITIES: No redness or swelling. ASSESSMENT AND PLAN: 1. Cellulitis of the left leg, improved. We will discontinue intravenous antibiotics, placed on p.o. Ceftin. 2. Nausea, possibly from the clindamycin. We will discontinue medicines. Slow intravenous hydration will be given for 24 hours. Routine labs will be ordered. 3. Hypotension, possibly from nausea and poor p.o. intake and hold off on antihypertensives for today. 4. Chronic poorly healing wound for surgery on Tuesday. 5. Peripheral vascular disease. The patient had initially refused procedure with Dr. Lucas in early this year and then did see him and have some procedures done at [facility] in [place]. The patient is not exactly sure what was done. We will try to get records from there. 6. Complete prolapse in the uterus, not a candidate for surgery. VIOLETA PERRY MD CM:PNTRANS [id number] VIOLETA PERRY MD 07/14/19 0827 interface
--- NOTE | ~2019-07-11 | PR ---
[place], [place] PROGRESS NOTE NAME: JANELLE NI [facility] #: [id number] UNIT #: [id number] ROOM: 504 DOCTOR: VIOLETA PERRY MD BIRTHDATE: [birth year] DOS: 07/16/2019 SUBJECTIVE: The patient is doing well without any complaints. Denies any chest pains or palpitations. The patient states that she did not void during the night, the nursing staff stated that she had about 700 mL output. OBJECTIVE: VITAL SIGNS: Blood pressure is 90/50, pulse of 77, respirations 18, temperature 97.8. LUNGS: Clear. HEART: Regular. ABDOMEN: Obese, soft, nontender. EXTREMITIES: Without any edema. ASSESSMENT AND PLAN: 1. Chronic kidney disease with acute kidney injury, possibly from poor p.o. intake as well as diuretics as well as hypotension causing acute tubular necrosis. 2. Peripheral vascular disease with history of angiogram and dilation of the peroneal artery in February 2019. 3. Small poorly healing wound of the right heel, awaiting procedure, the patient is going to be transferred to [facility] for further procedures. VIOLETA PERRY MD CM:PNTRANS [id number] VIOLETA PERRY MD 07/16/19 0943 interface
--- NOTE | ~2019-07-11 | PR ---
[place], [place] PROGRESS NOTE NAME: JANELLE NI UNIT #: [id number] ROOM: 504 DOCTOR: VIOLETA PERRY MD BIRTHDATE: [birth year] DOS: 07/15/2019 SUBJECTIVE: The patient is doing much better, does not have any complaints of nausea this morning. She did not eat very well yesterday and so her blood sugar dropped this morning to 40. She is about to eat some breakfast this morning. She also notices some difficulty with voiding, small amounts of urine leak out. She has not had a good flow. OBJECTIVE: VITAL SIGNS: Graphic trend shows a pressure 112/68, pulse of 70, respirations 16, temperature 97.6. LUNGS: Clear. HEART: Regular. ABDOMEN: Obese, soft, nontender. EXTREMITIES: Without any edema. ASSESSMENT AND PLAN: 1. Acute kidney injury, possibly from p.o. intake and prerenal azotemia. The patient was given IV fluids, the kidney functions have not improved much. We will continue the IV fluids for another 24 hours since the patient is going for an angiogram, which makes a high risk for further kidney issues. 2. Retention of urine from the complete prolapse of the uterus. We will do a urine bladder scan this morning and may require straight catheterization, had to leave the Barber catheter in this patient, but eventually the patient may have to have a Barber catheter to make sure that her urine output stays within normal limits. 3. Small wound on the right heel. Podiatry planning to do procedures, but the patient is also going for an angiogram tomorrow. The patient will need to be discharged and have the procedure done as an outpatient. 4. Chronic systolic congestive heart failure, not in acute congestive heart failure. This is compensated and does not require treatment with high dose of diuretics. 5. Type 2 diabetes mellitus, insulin-dependent with poor p.o. intake. The blood sugars are running low. We will discontinue the Glucotrol and hold off on the insulin for right now. I encouraged the patient to eat. [place], [place] PROGRESS NOTE NAME: JANELLE NI UNIT #: [id number] ROOM: 504 DOCTOR: VIOLETA PERRY MD BIRTHDATE: [birth year] VIOLETA PERRY MD CM:PNJASPER 5 [phone] VIOLETA PERRY MD 07/15/19 1043 interface
--- NOTE | ~2019-07-11 | PR ---
[place], [place] PROGRESS NOTE NAME: JANELLE NI [facility] #: [id number] UNIT #: [id number] ROOM: 504 DOCTOR: VIOLETA PERRY MD BIRTHDATE: [birth year] DOS: 07/17/2019 SUBJECTIVE: The patient is about the same, does not have any new complaints. OBJECTIVE: VITAL SIGNS: Graphic trend shows a pressure of 100/70, pulse of 80, respirations 18, temperature 98.1. LUNGS: Clear. HEART: Regular. ABDOMEN: Obese, soft, nontender. EXTREMITIES: Without any edema. LABORATORY DATA: None available today. BUN yesterday was 58, creatinine 2.35, GFR 20. ASSESSMENT AND PLAN: 1. Cellulitis of the left lower leg, resolved. 2. Chronic kidney disease with acute kidney injury, possibly from acute tubular necrosis from hypotension. The patient's kidney functions are slightly better with IV fluids, which has been discontinued. 3. Peripheral vascular disease with ongoing problems, awaiting procedure this morning at [place]. Plan to discharge her. MEDICATIONS: As dictated in the discharge summary. VIOLETA PERRY MD CM:PNTRANS [phone] VIOLETA PERRY MD 07/17/19901 interface
[2019-07-11 19:43] VITALS: BP 113/55
[2019-07-11 20:15] LABS: BASO % 0.2 % (0.0-1.0); EOS # 0.1 10*3/uL (0.0-0.4); EOS % 2.6 % (1.0-4.0); HEMATOCRIT 28.9 % (37.0-47.0); HEMOGLOBIN 8.6 g/dl (12.0-16.0); LYMPH # 0.9 10*3/uL (1.3-4.4); LYMPH % 18.7 % (27.0-41.0); MEAN CELL VOLUME 88.9 fl (81.0-99.0); MEAN CORPUSCULAR HGB 26.5 pg (27.0-31.0); MEAN CORPUSCULAR HGB CONC 29.8 g/dl (33.0-37.0); MEAN PLATELET VOLUME 10.3 fl (9.6-12.3); MONO # 0.4 10*3/uL (0.1-1.0); MONO % 8.4 % (3.0-9.0); NEUT # 3.3 10*3/uL (2.3-7.9); NEUT % 69.9 % (47.0-73.0); PLATELET COUNT AUTOMATED 143 10*3/uL (130-400); RED BLOOD COUNT 3.25 10*6/uL (4.10-5.10); RED CELL DISTRI WIDTH 20.6 % (0-14.5); WHITE BLOOD COUNT 4.7 10*3/uL (4.8-10.8)
[2019-07-11 20:25] LABS: ACT PARTIAL THROMBO TIME 27.5 SECONDS (20.0-32.1); INTERNATIONAL NORM RATIO 1.2 (2.0-3.5)
[2019-07-11 20:33] LABS: ALBUMIN 2.9 gm/dl (3.1-4.5); CREATININE 1.77 mg/dL (0.55-1.02); POTASSIUM 3.9 mmol/L (3.5-5.1); TOTAL PROTEIN 6.6 gm/dL (6.4-8.2); TROPONIN I 0.023 ng/ml (<0.045)
[2019-07-11 21:06] VITALS: BP 106/58
--- NOTE | 2019-07-11 21:55 | NUR ---
PT ASSISTED TO BSC AFTER BEING INCONT IN HTE BED. LINEN CHANGED. PT REMAINS IN PACED RHYTHM. SCOTT SARABIA RN.
[2019-07-11 21:56] VITALS: BP 132/66
[2019-07-12] VITALS (10 sets, daily range): BP systolic 112–1126; BP diastolic 58–90
--- NOTE | 2019-07-12 06:51 | NUR ---
PT UP TO BSC. VOICES NO COMPLAINTS. CALL LIGHT IN REACH. BED IN LOW POSITION SCOTT SARABIA RN.
--- NOTE | 2019-07-12 07:46 | NUR ---
PT RESTING IN BED. NO ACUTE DISTRESS
--- NOTE | 2019-07-12 09:00 | NUR ---
A 69, admitted to 5E, under the services of VIOLETA Hernandez MD with a diagnosis of CHF. Chief complaint is SHORTNESS OF BREATH. Patient arrived via stretcher from ER. Monitor applied. Initial assessment completed. Vital signs taken and recorded. VIOLETA HERNANDEZ MD notified of admission to the unit. Orders received. See assessment for past medical history, medications and allergies. Patient and/or family oriented to unit. [address] visitation policy reviewed. Clothing/patient valuable form completed. Physician at bedside. See new orders. CAITLYN PEDROZA
--- NOTE | 2019-07-12 10:09 | NUR ---
JANELLE NI [id number] Please refer to the physician's history and physical for past medical history, comorbid conditions, and allergies. Diagnosis: CHF Isma Score: 18,LOW OR NO RISK WOUND DESCRIPTIONS: Wound Number: 1 Location of the wound: right plantar aspect of heel Type of wound: unstageable Thickness: Full Size: 0.6cm x 4.2cm x 0.6cm Tunneling: none Undermining: none Sinus Tract: none Presence of Exudate: none Amount: Light Color: Brown, yellow, red Odor: None Periwound Skin Appearance: Normal Wound edges: approximated Pain (associated with wound): none at time of assessment How does patient state this happened? pt stated this has been ongoing and she follows with Dr. Branch and uses Santyl at home Surface the patient is resting on: Isoflex SKIN PREVENTION RECOMMENDATION: 1. Pressure redistribution support surface as appropriate 2. Elevate heels 3. Remove boots/TEDS every shift and reapply 4. Head of bed 30 degrees as tolerated 5. Assess nutrition and hydration 6. Manage moisture 7. Avoid the use of containment devices while in bed 8. Use absorptive products on surfaces limit layers of linens on bed 9. Turn and reposition every 1-2 hours in bed and every 1 hour in chair as tolerated 10. Weight shifts every 15 minutes while up in chair 11. Offloading with pillows or device to keep heels elevated off bed 12. Monitor skin at least every shift 13. Inspect under medical devices twice a day WOUND TREATMENT RECOMMENDATIONS: Full thickness guidelines: Cleanse right plantar aspect of heel with nss and apply sureprep around the wound therahoney to wound bed and cover with dsd daily and prn for soiling. Consult podiatry since patient follows with Dr. Branch outside of facility. Venous and arterial stuides due to non-healing wound. X-ray to right foot due to non-healing wound. Heel raiser pro boots to bilateral heels while in bed.
--- NOTE | 2019-07-12 10:30 | NUR ---
Oracle Data Warehouse Developer in to talk to patient. Patient states lives at home with her son. She has another son that lives in [place] and a daughter that lives in [place]. There are 0 steps in the home. There is a wheelchair ramp. Physician: Dr. Maximo Leal Pharmacy: [facility] Home health services: she currently has an OV RN and would like to resume those services upon discharge Patient's level of ADLs: MINIMAL ASSIST Patient has working utilities: yes DME: walker, cane, wheelchair Follow-up physician's appointment after d/c: she prefers to make her own follow up appt after discharge Does patient want to access PORTAL?: no Discharge plan discussed with patient. She lives at home with her son. She needs minimal assistance with her ADLs and mostly gets around in a wheelchair. Discussed home health care services and she currently has an OV nurse and would like to resume those services upon discharge. Discussed short term SNF and she refuses. When medically stable she will be discharged to home with the resumption of her [facility] services. Her daughter will transport on discharge. MIKE VILLALTA
--- NOTE | 2019-07-12 12:36 | NUR ---
Contacted Anselmo Lutz for updated med list. Pharmacist to fax.
[2019-07-12] MEDS ORDERED: FEOSOL325 MG PO (13:31)
--- NOTE | 2019-07-12 18:17 | NUR ---
Notified Dr. Valle that patients uterus was prolapsed and patient is c/o not being able to urinate. See new orders.
--- NOTE | 2019-07-12 18:54 | NUR ---
Spoke with Dr. Noble regarding consult for prolasped uterus. Physician cannot see the patient until Tuesday in her office. 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 She asked if somebody was able to bring in her pessary. Physician also stated that if need be, patient can be transferred to [facility] for further treatment.
[2019-07-13 05:32] VITALS: BP 116/68
--- NOTE | 2019-07-13 09:00 | NUR ---
Sports Journalist in to see patient. She is sitting up on the edge of her bed without distress notes. No new needs or request at this time. When medically stable she will be discharged to home with resumption of her OV services.
--- NOTE | 2019-07-13 11:10 | NUR ---
Shannanfran effective. Patient satisfied w/o c/o N/V.
[2019-07-13 12:00] VITALS: BP 124/68
--- NOTE | 2019-07-13 12:27 | NUR ---
Per request of Dr. Lim, Dr. Valle was contacted regarding vascular consult. Per Dr. Valle, patient was seen by Dr. Lucas and refused treatment, also stated that patient was not a condidate for surgery. Relayed the message to Dr. Lim.
[2019-07-13 14:30] VITALS: BP 102/48
[2019-07-13 16:00] VITALS: BP 108/56
--- NOTE | 2019-07-13 17:15 | NUR ---
Uterus was moistened with lubricant. Patient states it is only painful when she sits and pressure is applied. She also stated that she is afraid if la cath is removed because it was so painful to place.
--- NOTE | 2019-07-13 19:50 | NUR ---
PT SLEEPIGN IN BED ON LEFT SIDE, AWAKENS EASILY. NO C/O AT THIS TIME. CALL LIGHT IN REACH. SEE SHIFT ASSESSMENT.
[2019-07-13 20:00] VITALS: BP 104/69
--- NOTE | 2019-07-13 22:00 | NUR ---
PT TOLERATED ROUTINE MED WITH NO PROBLEM. BSG-143, SEE EMAR. PT REFUSES LANTUS 30 UNITS SHE STATES SHE GOES BY THE BLOOD SUGAR. PT WANTED 10 UNITS LANTUS. DRESSING RIGHT HEEL CHANGED PER ORDER, NEW DRESSING APPLIED. CALL LIGHT IN REACH.
[2019-07-14] VITALS: BP 97/51
--- NOTE | 2019-07-14 00:10 | NUR ---
PT SITTING UP AT BEDSIDE COMMODE. PT PULLED MENDEZ OUT WITHOUT KNOWING. BALLOON WAS STILL INFLATED. BED CHANGED AND PT BATHED. CALL LIGHT IN REACH.
--- NOTE | 2019-07-14 00:13 | NUR ---
C/O NAUSEA, MEDICATED WITH ZOFRAN IV PER PRN ORDER, SEE EMAR. CALL LIGHT IN REACH.
--- NOTE | 2019-07-14 01:00 | NUR ---
RESTING IN BED. STATES MEDICATION HELPED. CALL LIGHT IN REACH.
--- NOTE | 2019-07-14 04:00 | NUR ---
PT SLEEPING IN BED. RESP-EASY AND REGULAR. CALL LIGHT IN REACH.
--- NOTE | 2019-07-14 06:20 | NUR ---
BSG-109, SEE EMAR. BP 100/52 HELD HYDRALAZINE FOR THIS AM. PT VOMITED SMALL AMOUNT EMESIS. MEDICATED WITH ZOFRAN IV PER PRN ORDER, SEE EMAR. CALL LIGHT IN REACH,.
--- NOTE | 2019-07-14 06:45 | NUR ---
DR. PERRY IN TO SEE PT. AWARE OF BP AND NAUSEA AND VOMITING. PER DR. PERRY OK TO LEAVE MENDEZ OUT.
[2019-07-14 07:55] LABS: BASO % 0.2 % (0.0-1.0); EOS # 0.1 10*3/uL (0.0-0.4); HEMATOCRIT 27.2 % (37.0-47.0); HEMOGLOBIN 8.3 g/dl (12.0-16.0); LYMPH # 0.7 10*3/uL (1.3-4.4); LYMPH % 12.2 % (27.0-41.0); MEAN CELL VOLUME 88.3 fl (81.0-99.0); MEAN CORPUSCULAR HGB 26.9 pg (27.0-31.0); MEAN CORPUSCULAR HGB CONC 30.5 g/dl (33.0-37.0); MONO # 0.6 10*3/uL (0.1-1.0); MONO % 9.4 % (3.0-9.0); NEUT # 4.7 10*3/uL (2.3-7.9); PLATELET COUNT AUTOMATED 154 10*3/uL (130-400); RED BLOOD COUNT 3.08 10*6/uL (4.10-5.10); RED CELL DISTRI WIDTH 19.7 % (0-14.5); WHITE BLOOD COUNT 6.1 10*3/uL (4.8-10.8)
[2019-07-14 08:08] LABS: CREATININE 2.06 mg/dL (0.55-1.02); POTASSIUM 4.7 mmol/L (3.5-5.1)
[2019-07-14 10:51] VITALS: BP 86/42
--- NOTE | 2019-07-14 11:25 | NUR ---
CALLED AND MADE AWARE OF CONSULT BY SHEKHAR HEATON. AHSAN ALSO CALLED TO IN PODITRY VIA TELEPHONE
[2019-07-14 12:00] VITALS: BP 116/50
--- NOTE | 2019-07-14 12:21 | NUR ---
BGM TAKEN AT THIS TIME OF 63. PATIENT SHE HAS NOT ATE YET, MEAL ON WAY. 2 ORANGE JUICES GIVEN. WILL MONITOR
--- NOTE | 2019-07-14 12:25 | NUR ---
DRESSING CHANGE TO R HEEL COMPLETED AT THIS TIME . NMO DRAINAGE PRESENT. PATIENT TOLERATED WELL. WILL MONITOR
[2019-07-14 16:00] VITALS: BP 122/71
[2019-07-14 20:00] VITALS: BP 113/60
[2019-07-15] VITALS: BP 112/68
[2019-07-15 06:23] LABS: POTASSIUM 4.8 mmol/L (3.5-5.1)
[2019-07-15 06:33] LABS: CREATININE 2.28 mg/dL (0.55-1.02)
--- NOTE | 2019-07-15 06:46 | NUR ---
CRITICAL GLUCOSE REPORTED TO DR PERRY. NEW ORDERS RECEIVED.
[2019-07-15 07:00] LABS: BASO % 0.1 % (0.0-1.0); EOS # 0.1 10*3/uL (0.0-0.4); EOS % 1.4 % (1.0-4.0); HEMATOCRIT 29.5 % (37.0-47.0); HEMOGLOBIN 8.7 g/dl (12.0-16.0); LYMPH % 12.9 % (27.0-41.0); MEAN CELL VOLUME 88.3 fl (81.0-99.0); MEAN CORPUSCULAR HGB CONC 29.5 g/dl (33.0-37.0); MEAN PLATELET VOLUME 11.2 fl (9.6-12.3); MONO # 0.7 10*3/uL (0.1-1.0); MONO % 8.8 % (3.0-9.0); NEUT % 76.5 % (47.0-73.0); PLATELET COUNT AUTOMATED 198 10*3/uL (130-400); RED BLOOD COUNT 3.34 10*6/uL (4.10-5.10); WHITE BLOOD COUNT 7.8 10*3/uL (4.8-10.8)
[2019-07-15 08:00] VITALS: BP 138/78
[2019-07-15 12:00] VITALS: BP 112/59
[2019-07-15 16:00] VITALS: BP 115/67
--- NOTE | 2019-07-15 17:39 | NUR ---
DR LEUNG NOTIFIED THE PATIENT WILL NOT BE ABLE TO BE TRANSFERRED BACK HERE FROM [place] AND HE STATED OK WE WILL WORK AROUND IT.
[2019-07-15 20:00] VITALS: BP 82/53
[2019-07-16] VITALS: BP 109/52
--- NOTE | 2019-07-16 06:29 | NUR ---
REPORT GIVEN TO [facility] NURSE.
[2019-07-16 08:00] VITALS: BP 90/50
--- NOTE | 2019-07-16 09:06 | NUR ---
ATTEMPTED TO CALL SON AND MESSAGE THAT PHONE NOT WORKING AT THIS TIME. ATTEMPTED TO CALL DTG BUT MAILBOX IS FULL & UNABLE TO LEAVE A MESSAGE
--- NOTE | 2019-07-16 09:12 | NUR ---
JUST RECEIVED A CALL FROM [place] THAT THE PROCEDURE IS ON HOLD INDEFINETLY. PMO ANALYST & DR COLLINS MADE AWARE
--- NOTE | 2019-07-16 09:17 | NUR ---
DAUGHTER CHAO AWARE OF TRANSFER SITUATION
[2019-07-16 09:50] LABS: CREATININE 2.35 mg/dL (0.55-1.02); POTASSIUM 4.9 mmol/L (3.5-5.1)
--- NOTE | 2019-07-16 10:00 | NUR ---
DR PERRY CALLED WITH STAT LAB RESULTS ORDERS RECEVIED. PATIENT EATING ON SIDE OF THE BED
--- NOTE | 2019-07-16 10:30 | NUR ---
Quill Winder in to see patient. No new needs or request at this time. When medically stable she will be discharged to home with resumption of her [facility] services.
--- NOTE | 2019-07-16 11:52 | NUR ---
PATIENT UP TO BSC TO VOID CLOUDY URINE 350cc. BLADDER SCANNED AFTERWARDS FOR 140cc. NO STRAIGHT CATH REQUIRED.
[2019-07-16 12:00] VITALS: BP 112/60
[2019-07-16 16:00] VITALS: BP 114/56
[2019-07-16 20:00] VITALS: BP 107/54
[2019-07-17] VITALS: BP 125/68
--- NOTE | 2019-07-17 | NUR ---
PT IS ASLEEP IN BED AT THIS TIME. THERE ARE NO S/S OF DISTRESS NOTED. BED IS LOW, CALL LIGHT WITHIN REACH. WILL CONTINUE TO MONITOR.
--- NOTE | 2019-07-17 04:51 | NUR ---
BLADDER SCANNED PER ORDER. 75CC SHOWING. WILL CONTINUE TO MONITOR.
--- NOTE | 2019-07-17 07:19 | NUR ---
JUST SPOKE WITH [employer] SEMIC[employer]CTOR WAFERS SAW OPERATOR - PATIENT IS TO BE TRANSFERRED TODAY TO [facility] - THEO GUIDRY NOTIFIED.
--- NOTE | 2019-07-17 07:53 | NUR ---
REPORT CALLED TO [facility] - PATIENT AWARE OF TRANSFER
[2019-07-17 07:54] VITALS: BP 100/70
--- NOTE | 2019-07-17 08:01 | NUR ---
PATIENT REFUSING FURTHER DC PICTURES - SHE SAID SHE IS JUST TOO TIRED & FEELING SOB. WANTS TO REST SINCE AMBULANCE IS IN ROUTE TO FACILITY TO PICK HER UP. PICTURES WERE TAKEN YESTERDAY
--- NOTE | 2019-07-17 08:02 | NUR ---
PODIATRY RESIDENT AWARE OF TRANSFER - ENCOURAGE FAMILY TO FOLLOW UP - DR PERRY HERE AND AWARE OF TRANSFER
--- NOTE | 2019-07-17 08:35 | NUR ---
PATIENT TRANSFERRED TO [facility] FOR VASCULAR INTERVENTION
== END 2019-07-17 08:35 | disposition short-term general hospital (02) | DRG 602 ==
LOC: ED 19:42 → EDHOLD 21:33 → 5E 21:33
PROVIDERS: Emergency Medicine; ADMIT Internal Medicine
DX: L03.116 Cellulitis of left lower limb (principal); N17.0 Acute kidney failure with tubular necrosis; I50.22 Chronic systolic (congestive) heart failure; I42.9 Cardiomyopathy, unspecified; I13.0 Hypertensive heart and chronic kidney disease with heart failure and stage 1 through stage 4 chronic kidney disease, or unspecified chronic kidney disease; L97.429 Non-pressure chronic ulcer of left heel and midfoot with unspecified severity; L97.419 Non-pressure chronic ulcer of right heel and midfoot with unspecified severity; N18.3 Chronic kidney disease, stage 3 (moderate); J44.9 Chronic obstructive pulmonary disease, unspecified; R33.9 Retention of urine, unspecified; I70.234 Atherosclerosis of native arteries of right leg with ulceration of heel and midfoot; N81.4 Uterovaginal prolapse, unspecified; E11.22 Type 2 diabetes mellitus with diabetic chronic kidney disease; M17.12 Unilateral primary osteoarthritis, left knee; E11.649 Type 2 diabetes mellitus with hypoglycemia without coma; E11.51 Type 2 diabetes mellitus with diabetic peripheral angiopathy without gangrene; E11.621 Type 2 diabetes mellitus with foot ulcer; I25.10 Atherosclerotic heart disease of native coronary artery without angina pectoris; I48.0 Paroxysmal atrial fibrillation; Z95.1 Presence of aortocoronary bypass graft; Z95.0 Presence of cardiac pacemaker; I25.2 Old myocardial infarction; Z82.49 Family history of ischemic heart disease and other diseases of the circulatory system; Z80.8 Family history of malignant neoplasm of other organs or systems; Z83.3 Family history of diabetes mellitus; Z79.4 Long term (current) use of insulin

== ENCOUNTER 2019-07-24 10:07 | Inpatient (IN) | payer MEDICARE, MEDICAID ==
[~2019-07-24] VITALS: Ht 162.5 cm; Wt 111.6 kg
[2019-07-24 10:07] VITALS: BP 117/60
[~2019-07-24 10:07] MED LIST changes: +FEOSOL325 MG PO
[2019-07-24 11:02] LABS: BASO % 0.1 % (0.0-1.0); EOS # 0.1 10*3/uL (0.0-0.4); EOS % 1.6 % (1.0-4.0); HEMATOCRIT 30.3 % (37.0-47.0); HEMOGLOBIN 9.1 g/dl (12.0-16.0); LYMPH % 14.7 % (27.0-41.0); MEAN CELL VOLUME 89.4 fl (81.0-99.0); MEAN CORPUSCULAR HGB 26.8 pg (27.0-31.0); MEAN PLATELET VOLUME 9.9 fl (9.6-12.3); MONO # 0.7 10*3/uL (0.1-1.0); NEUT # 4.9 10*3/uL (2.3-7.9); NEUT % 73.3 % (47.0-73.0); PLATELET COUNT AUTOMATED 157 10*3/uL (130-400); RED BLOOD COUNT 3.39 10*6/uL (4.10-5.10); RED CELL DISTRI WIDTH 21.2 % (0-14.5); WHITE BLOOD COUNT 6.7 10*3/uL (4.8-10.8)
[2019-07-24 11:21] LABS: ALBUMIN 2.7 gm/dl (3.1-4.5); CREATININE 2.29 mg/dL (0.55-1.02); POTASSIUM 4.7 mmol/L (3.5-5.1); TOTAL PROTEIN 6.2 gm/dL (6.4-8.2)
[2019-07-24 11:27] LABS: TROPONIN I 0.048 ng/ml (<0.045)
--- NOTE | 2019-07-24 11:27 | NUR ---
NOTIFIED BY LAB THAT PTS TROPONIN IS 0.048. DR NIETO NOTIFIED.
--- NOTE | 2019-07-24 12:38 | NUR ---
SPOKE WITH [facility]. THEY ARE ACCEPTING HER AND WILL SEND THERE VAN TO GET HER AT 4PM.
--- NOTE | 2019-07-24 14:00 | NUR ---
WOUND N0TED ON PTS PROLAPSED RECTUM. REFUSED PHOTOGRAPH.
[2019-07-24 14:15] VITALS: BP 134/71
--- NOTE | 2019-07-24 14:19 | NUR ---
A 69, admitted to 5E, under the services of Dr. LEANDRO MCNEILL,LUIZA Euceda with a diagnosis of CHF AND GENERALIZED WEAKNESS. Chief complaint is FALL. Patient arrived via stretcher from ER. Monitor applied. Initial assessment completed. Vital signs taken and recorded. DR. LEANDRO MCNEILL,LUIZA Euceda notified of admission to the unit. Orders received. See assessment for past medical history, medications and allergies. Patient and/or family oriented to unit. visitation policy reviewed. Clothing/patient valuable form completed. MARIA DE JESUS KASPER
[2019-07-24 15:43] VITALS: BP 134/71
[2019-07-24 20:00] VITALS: BP 132/62
--- NOTE | 2019-07-24 22:04 | NUR ---
CALLED AND SPOKE WITH DR. TALAMANTES AND NOTIFIED HER OF PT.CONDITION AND LABS AND SHE WILL SEE PATIENT TOMORROW. DR. TALAMANTES WANTING BLOOD THINNER MEDICATION CLARIFIED PRIOR TO GIVING.
--- NOTE | 2019-07-24 22:20 | NUR ---
CALLED PHARMACIST HERE AT HOSPITAL AND YES XARELTO 2.5MG APPROVED NEW DOSING GUIDELINES FOR HIGH RISK HEART PATIENTS THAT CAN STAY ON XARELTO FOREVER.
[2019-07-25] VITALS (7 sets, daily range): BP systolic 101–148; BP diastolic 48–76
--- NOTE | 2019-07-25 02:04 | NUR ---
24 HR chart check completed.
[2019-07-25 05:46] LABS: CREATININE 2.12 mg/dL (0.55-1.02); POTASSIUM 4.6 mmol/L (3.5-5.1)
--- NOTE | 2019-07-25 06:00 | NUR ---
APRESSOLINE NOT GIVEN BECAUSE LOW BP 101/48.
--- NOTE | 2019-07-25 06:15 | NUR ---
PT. WAS PLACED ON BEDPAN AND VOIDED. URINE FOR UA REFLUX SENT TO LAB.
--- NOTE | 2019-07-25 06:43 | NUR ---
PATIENT HAD LABS DRAWN THIS AM AND SO AM BSG NOT DONE BUT USED AM LAB GLU 89. PATIENT WANTED JUICE MILK AND CRACKER AND THIS WAS GIVEN.
[2019-07-25 06:55] LABS: BILIRUBIN NEGATIVE (NEGATIVE); BLOOD 3+ (NEGATIVE); CLARITY CLOUDY (CLEAR); COLOR YELLOW (YELLOW); GLUCOSE NEGATIVE (NEGATIVE); KETONE NEGATIVE (NEGATIVE); LEUKO ESTERASE 3+ (NEGATIVE); NITRITE NEGATIVE (NEGATIVE); PH 6.5 (5.0-9.0); UROBILINOGEN 0.2 E.U./dl (0.2-1.0)
--- NOTE | 2019-07-25 07:02 | NUR ---
JANELLE NI [id number] Please refer to the physician's history and physical for past medical history, comorbid conditions, and allergies. Diagnosis: CHF GENERALIZED WEKAKNESS Isma Score: 18,AT RISK WOUND DESCRIPTIONS: Wound Number: 1 Location of the wound: right heel Type of wound: unstageable Thickness: Full Size: 1.0cm x 2.2cm x 0.6cm Tunneling: none Undermining: none Sinus Tract: none Presence of Exudate: Serous Amount: Light Color: Yellow, brown Odor: None Periwound Skin Appearance: Normal Wound edges: approximated Pain (associated with wound): none at time of assessment How does patient state this happened? pt stated she has had this for several months and follows with podiatry Wound Number: 2 Location of the wound: left groin Type of wound: surgical Thickness: Partial Size: 0.2cm x 1.7cm x 0.1cm Tunneling: none Undermining: none Sinus Tract: none Presence of Exudate: Sanguineous Amount: Light Color: Red Odor: None Periwound Skin Appearance: ecchymotic Wound edges: approximated Pain (associated with wound): none at time of assessment How does patient state this happened? pt stated she had vascular surgery last week Wound Number: 3 Location of the wound: right groin Type of wound: surgical Thickness: Full Size: 3.5cm x 1.5cm x 0.1cm Tunneling: none Undermining: none Sinus Tract: none Presence of Exudate: Sanguineous Amount: Light Color: Yellow Odor: None Periwound Skin Appearance: eccyhmotic Wound edges: approximated Pain (associated with wound): none at time of assessment How does patient state this happened? 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 Sanguineous drainage noted at time of assessment. No odor at time of assessment. Patient stated she has had this for a while. Surface the patient is resting on: Isoflex SKIN PREVENTION RECOMMENDATION: 1. Pressure redistribution support surface as appropriate 2. Elevate heels 3. Remove boots/TEDS every shift and reapply 4. Head of bed 30 degrees as tolerated 5. Assess nutrition and hydration 6. Manage moisture 7. Avoid the use of containment devices while in bed 8. Use absorptive products on surfaces limit layers of linens on bed 9. Turn and reposition every 1-2 hours in bed and every 1 hour in chair as tolerated 10. Weight shifts every 15 minutes while up in chair 11. Offloading with pillows or device to keep heels elevated off bed 12. Monitor skin at least every shift 13. Inspect under medical devices twice a day WOUND TREATMENT RECOMMENDATIONS: Consult Dr. Geronimo for prolasped uterus partial and full thickness areas noted. Full thickness guidelines: Cleanse right groin and right heel with nss and apply sureprep around the wound therahoney to wound bed and cover with optifoam gentle daily and prn for soiling. Partial thickness guidelines: Cleanse left groin with nss and apply sureprep around the wound therahoney to wound bed and cover with optifoam gentle daily and prn for soiling. Heel raiser pro boots to bilateral heels while in bed. Consult podiatry since patient follows with podiatry outside of here for possible debridement after records are obtain from vascular procedure.
[2019-07-25 07:11] LABS: BACTERIA 4+; EPITHELIAL CELLS 40-50; RBC TNTC rbc/hpf (0-2); WBC TNTC wbc/hpf (0-5)
--- NOTE | 2019-07-25 09:00 | NUR ---
Rotary Drill Operator in to talk to patient. Patient states lives at home alone. She states her son is riding with a friend who is in the isaiah business. She has another son that lives in [place] and a daughter that lives in [place]. There are 0 steps in the home. There is a wheelchair ramp. Physician: Dr. Maximo Leal Pharmacy: [facility] health services: she currently has an OV RN Patient's level of ADLs: MODERATE ASSIST Patient has working utilities: yes DME: walker, cane, wheelchair Follow-up physician's appointment after d/c: she prefers to make her own follow up appt after discharge Does patient want to access PORTAL?: no Discharge plan discussed with patient. She lives at home alone. She needs moderate assistance with her ADLs and mostly gets around in a wheelchair. Discussed home health care services and she currently has an [facility] nurse. Discussed short term SNF and would like to go to [facility]. When medically stable, accepted, and precert is received she will be discharged to [facility]. Her daughter will transport on discharge. galley worker following. MIKE VILLALTA
--- NOTE | 2019-07-25 09:03 | NUR ---
BED CONTROL SPECIALIST spoke with the patient. Patient stated she was home for a few hours. She fell the evening she was released from [place]. Patient stated her niece found her after several hours. The patient stated she was unable to move or grab anything to pull herself up. BED CONTROL SPECIALIST talked to the patient about SNF. Patient stated she would be agreeable to go to [facility]. BED CONTROL SPECIALIST will make referral to [facility]. Will need PT/OT Evals. -EMIL Bonilla
--- NOTE | 2019-07-25 09:13 | NUR ---
YAM CURER faxed referral to [facility]. Patient will require a PRECERT. Will need PT/OT Evals to complete referral. -EMIL Bonilla
--- NOTE | 2019-07-25 09:52 | NUR ---
NOTIFIED OF PODIETRY CONSULT, WILL SEE PATIENT TODAY
--- NOTE | 2019-07-25 11:28 | NUR ---
PHYSICAL THERAPY Physical therapy evaluation complete, 5E. Full evaluation/details to follow. Moderate complexity PT evaluation per chart review and evaluation (82503). PT to progress transfers, gait, LE strength per POC. Recommend SNF at discharge. Thank you. Lelo Nye,PT,DPT
--- NOTE | 2019-07-25 11:28 | NUR ---
Occupational therapy orders received and OT evaluation and POC completed in full on floor five. Patient precautions include fall risk, ww use, and generalized weakness. Per OT eval and POC, OT recommends that patient d/c to SNF. If refused, home with SN, OT, PT, and 23/05 assist. Patient would benefit from OT treatment to maximize independence in ADLs, functional transfers/mobility, and increase UE strength. Thank you for the referral. Jane Hill, OTR/L
--- NOTE | 2019-07-25 13:46 | NUR ---
IN TO SEE PATIENT WILL PUT ORDERS IN FOR CREAM AT HER OFFICE PER
--- NOTE | 2019-07-25 14:00 | NUR ---
AUTOMOBILE RENTAL REPRESENTATIVE faxed over PT/OT Evals and update to [facility]. -EMIL Bonilla
[2019-07-25 14:39] LABS: URINE CREATININE RANDOM 76.1 mg/dL
--- NOTE | 2019-07-25 20:56 | NUR ---
24 HR chart check completed.
--- NOTE | 2019-07-26 01:30 | NUR ---
[id number] PT. C/O NOT ABLE TO BREATH. PULSE OX 100%. LUNG SOUNDS CLEAR BUT SLIGHT DIMINISHED. PT. HAS H. HERNIA AND WAS LAYING MORE FLAT. SAT PATIENT UP RIGHT AND PRESSURE FROM H. HERNIA ON DIAPHRAM WAS RELIEVED AND PT. WAS ABLE TO BREATH EASIER. PATIENT REPOSITIONED AGAIN IN BED MORE UPRIGHT ON HER SIDE AND WAS COMFORTABLE AND ABLE TO BREATH EASY.
--- NOTE | 2019-07-26 02:00 | NUR ---
PATIENT RESTING IN BED. PATIENT STATED SHE IS BREATHING BETTER AND FEELS BETTER. NO SIGNS OR SYMPTOMS OF DISRTESS. CALL LIGHT WITHIN REACH. BED LOCKED AND IN LOWEST POSITION. SIDE RAILS UP X2. WILL CONTINUE TO MONITOR.
[2019-07-26 05:42] VITALS: BP 101/54
--- NOTE | 2019-07-26 05:45 | NUR ---
APRESOLINE NOT GIVEN BECAUSE LOW BP OF 101/54.
[2019-07-26 07:05] LABS: ALBUMIN 2.7 gm/dl (3.1-4.5); CREATININE 2.24 mg/dL (0.55-1.02); PHOSPHOROUS 3.7 mg/dL (2.5-4.9); POTASSIUM 4.6 mmol/L (3.5-5.1)
--- NOTE | 2019-07-26 07:39 | NUR ---
Nurse caring for patient Kia stated she will speak with Dr. Noble about putting orders in for the cream that was in the progress note.
--- NOTE | 2019-07-26 07:44 | NUR ---
EXECUTIVE DIRECTOR SHELTERED WORKSHOP faxed updates to [facility]. Awaiting acceptance. Patient does require a PRECERT. -EMIL Bonilla
[2019-07-26 08:00] VITALS: BP 148/50
--- NOTE | 2019-07-26 09:00 | NUR ---
Chemist Physical in to see patient. No new needs or request at this time. When medically stable and precert is received she will be discharged to [facility]. hide mill worker following.
--- NOTE | 2019-07-26 10:15 | NUR ---
PHYSICAL THERAPY Patient seen this am 1:1 for therapy visit and was sitting up on EOB following a late breakfast upon therapist arrival. Patient identified by name / and presented with R foot surgical shoe. Patient reports mild 1-2/10 R foot pain at rest and was very pleasant this morning. Patient performed seated B LE therex. all planes, x 10 reps each followed by several sit to stand transfers at bedside, MOD A, use of wh walker standing support and tolerated < 45 seconds static stand each trial secondary to increased fatigue. Patient able to side step to L for bed positioning and returned to supine in bed reporting slight increase in R foot pain 3-4 /10. Patient remained in bed with call light, tray table, cell phone and bed alarm for safety. Will continue per POC as tolerated, total treatment time 14 minutes. Dionte Loyola, BEHAVIORAL SCIENCE CHAIR
[2019-07-26 11:04] LABS: MICRO ALBUMIN/CRE RATIO 1180.1 (0.0-30.0)
--- NOTE | 2019-07-26 11:30 | NUR ---
HYDRAULIC BILLET MAKER completed HENs. Patient does require PRECERT which was started this morning. -EMIL Bonilla
[2019-07-26 12:00] VITALS: BP 102/54
--- NOTE | 2019-07-26 12:20 | NUR ---
SALES REPRESENTATIVE MEATS faxed clinicals to Sal with [facility] for SNF Review. -EMIL Bonilla
--- NOTE | 2019-07-26 14:03 | NUR ---
Spoke to Dr. Boyd regarding potential podiatry surgery. The earliest Dr. Wesley could do surgery would be next Tuesday. Patient can be discharged from podiatry standpoint at this time.
--- NOTE | 2019-07-26 14:42 | NUR ---
OT NOTE Pt was seen this P.M. 1:1 for 15 minute OT session. Upon arrival pt was sitting upright on the bedside commode. Pt identified by name and and had no complaints at this other than generalized weakness. Pt completed sit to stand from bedside commode with modA and use of w/w for UE support. Clothing management and toilet hygiene completed with maxA due to pt having severe retrograde LOB and fear of falling when standing without UE support. Then challenged pt's static standing tolerance needed for increased I in self care tasks and functional transfers and pt was able to tolerate aprox 2 minutes before sitting due to fatigue. Pt was requesting to sit up in the recliner where she was left with call light in hand, tray table in place, and body alarm on for safety. Continue with rec D/C plan to SNF. JAGDEEP De La Torre
--- NOTE | 2019-07-26 14:47 | NUR ---
PHYSICAL THERAPY Patient presented to therapy sitting on bedside commode upon this RESERVE OFFICER arriving in the patient's room. Patient was identified by name and on wristband. Patient gives informed consent for treatment. Patient performed sit to stand from bedside commode with MOD A X 1. Patient sit to stand from EOB with CGA X 1. Patient performed ambulation with Wh Walker and CGA X 2 for 10' x 1 verbal cues for upright posture, locking knees into extension to prevent knee buckle and increasing step length. Patient then backed up to bed, due to fatigue, with Wh Walker and CGA X 2 and sat on EOB. Patient stood again with COMPUTER SALESPERSON RETAIL X 2 after short rest period and side stepped up to head of bed with COMPUTER SALESPERSON RETAIL X 2. Patient transferred to supine in bed with MOD A X 2. Patient was left in supine in bed with head of bed elevated, call light within reach, and bed alarm activated. Patient was 1:1 with this RESERVE OFFICER for 17 minutes total. HUMBERTO SHAFER RESERVE OFFICER
--- NOTE | 2019-07-26 15:16 | NUR ---
NOTIFIED OF PATIENTS INABILITY TO FULLY EMPTY BLADDER D/T PROLASPED UTERINE. OK TO INSERT MENDEZ
--- NOTE | 2019-07-26 15:17 | NUR ---
16FR MENDEZ INSERTED USING STERILE TECHINQUE IMMEDIATE REUTRN OF PALE TURBIN URINE 200CC,PT TOLERATED WELL
[2019-07-26 20:00] VITALS: BP 120/60
--- NOTE | 2019-07-26 21:30 | NUR ---
PATIENT IS RESTING IN BED WITH EASY AND REGULAR RESPERS ON ROOM AIR. ASSESSMENT IS COMPLETE WITH NO C/O OR S/S OF DISTRESS NOTED AT THIS TIME. BED IS LOW, LOCKED, AND CALL LIGHT IS WITHIN REACH. WILL CONTINUE TO MONITOR SEE SHIFT ASSESSMENT.
[2019-07-27] VITALS: BP 103/53
--- NOTE | 2019-07-27 02:59 | NUR ---
24 HR chart check completed.
[2019-07-27 06:42] LABS: ALBUMIN 2.4 gm/dl (3.1-4.5); CREATININE 2.27 mg/dL (0.55-1.02); PHOSPHOROUS 3.4 mg/dL (2.5-4.9); POTASSIUM 4.5 mmol/L (3.5-5.1)
[2019-07-27 08:00] VITALS: BP 109/54
[2019-07-27 08:11] VITALS: BP 109/54
--- NOTE | 2019-07-27 08:33 | NUR ---
24 HR chart check completed.
--- NOTE | 2019-07-27 08:42 | NUR ---
EMIL received notice the patient is accepted to [facility]. Patient is able to go today if medically stable. -EMIL Bonilla
--- NOTE | 2019-07-27 09:18 | NUR ---
Nutritional Support Services Note: Wound noted to right heel. Appetite is good for meals, she is eating 100% of meals served. She receives a 2000cal diet as ordered. Receives a night snack daily high protein. Will follow as needed. No other nutritoin intervention needed at this time. Lisa Alaniz Rdn Ld
--- NOTE | 2019-07-27 09:20 | NUR ---
PHYSICAL THERAPY Patient seen this am 1;1 for therapy visit and was sitting up EOB following breakfast upon therapist arrival. Patient identified by name / and reports no new c/o's at this time. Patient transfers sit to stand from low bed surface, MOD A and needed a few seconds to collect herself, prior to ambulating with use of wh walker, Min A, 20'x 1 around bed to bedside chair. Patient demonstrates very slow tc, decreased stide and bouts of increased SOB secondary to reporting history of abdominal hernia which at times makes her breathing difficult. Patient received v/c to stand up tall with shoulders back to improve breathing technique, which seemed to help as patient completed gait ex without further c/o. Patient remained in bedside chair with increased fatigue, call light, tray table, telephone and body alarm for safety. Will continue per POC as tolerated, total treatment time 13 minutes. Dionte Loyola, GAS BLENDER
--- NOTE | 2019-07-27 09:40 | NUR ---
OT NOTE Pt was seen this A.M. 1:1 for 24 minute OT session. Upon arrival pt was sitting upright on the EOB. Pt identified by name and and had no complaints at this time. Pt presented to therapy with R surgical shoe which remained on throughout entire session. Sit to stand completed from bed level with Frank and use of w/w for UE support. Functional mobility compelted around the bed to the recliner with frequent rest breaks throughout due to complaints of feeling SOB. SpO2 within functional limits. Pt then sat in recliner for a seated rest. While seated pt completed BUE towel exercises over all planes of motion for 1 X 10 to increase UE strength needed for increased I in self care tasks and functional transfers. Pt was left sitting upright in the recliner with call light in hand, tray table in place, and body alarm on for safety. Continue with rec D/C plan to SNF. JAGDEEP De La Torre
[2019-07-27 12:00] VITALS: BP 118/54
--- NOTE | 2019-07-27 12:00 | NUR ---
Discussed discharge planning with Dr. Castle. Plan is to discharge patient today to [facility]. template worker following.
--- NOTE | 2019-07-27 13:21 | NUR ---
OT CO-SIGN I APPROVE OF THE NOTES WRITTEN ABOVE. THANK YOU. PATSY HINES, OTR/L
--- NOTE | 2019-07-27 14:20 | NUR ---
MENDEZ CATHETER FOUND LYING ON THE FLOOR AT THIS TIME AFTER PATIENT SCOOTED FORWARD IN CHAIR AND STOOD FOR TRANSFER TO BEDSIDE COMMODE. BALLOON INTACT, PATIENT STATED THAT SHE DIDN'T EVEN FEEL IT COMING OUT, NO BLEEDING NOTED AT THIS TIME, PATIENT ABLE TO VOID URINE WHEN UP ON THE COMMODE.
--- NOTE | 2019-07-27 14:21 | NUR ---
PHYSICAL THERAPY CO-SIGN I approve of the Physical Therapy notes written above. MIKE PIÑA PT,DPT
--- NOTE | 2019-07-27 14:50 | NUR ---
MESSAGE LEFT ON DR. TALAMANTES VOICEMAIL TO RETURN CALL CONCERNING THIS PATIENT. AWAITING CALL BACK FOR FURTHER ORDERS.
--- NOTE | 2019-07-27 15:07 | NUR ---
DR. TALAMANTES RETURNED CALL ORDERS RECEIVED
[2019-07-27 16:00] VITALS: BP 115/66
--- NOTE | 2019-07-27 16:25 | NUR ---
MENDEZ REINSERTED AT THIS TIME PRE DR. TALAMANTES ORDERS, PATIENT TOLERATED WELL AND WITHOUT INCIDENT, WILL CONTINUE TO MONITOR.
[2019-07-27 20:00] VITALS: BP 120/59
[2019-07-28] VITALS: BP 119/62
--- NOTE | 2019-07-28 03:40 | NUR ---
24 HR chart check completed.
--- NOTE | 2019-07-28 03:40 | NUR ---
PATIENT IS SLEEPING WITH EASY AND REGULAR RESPERS ON ROOM AIR. BED IS LOW, LOCKED, ALARMED, AND CALL LIGHT IS WITHIN REACH.
[2019-07-28 06:50] LABS: ALBUMIN 2.3 gm/dl (3.1-4.5); CREATININE 2.07 mg/dL (0.55-1.02); PHOSPHOROUS 3.6 mg/dL (2.5-4.9)
[2019-07-28 08:00] VITALS: BP 112/58
--- NOTE | 2019-07-28 08:42 | NUR ---
24 HR chart check completed.
[2019-07-28] MEDS ORDERED: CIPRO500 MG PO (08:52)
--- NOTE | 2019-07-28 11:15 | NUR ---
PATIENT DISCHARGED AT THIS TIME VIA [facility] TO [facility]. IV SALINE LOCK DISCONTINUED, DRESSING APPLIED, NO BLEEDING NOTED A THIS TIME. PATIENT REFUSED PHOTOS TO BE TAKEN AT THIS TIME STATED "THEY'RE GOING TO HAVE TO TAKE IT OFF THERE ANYWAY AND I DON'T NEED IT DONE TWICE." ALL INFORMATION PROVIDED TO PATIENT AND AMBULANCE CREW. REPORT CALLED TO JANUARY AT [facility] AND NUMBER PROVIDED IF FURTHER INFORMATION IS NEEDED.
--- NOTE | 2019-07-30 09:23 | NUR ---
OCCUPATIONAL THERAPY CO-SIGN I approve of the Occupational Therapy notes written above. MARISOL DE LEON OTR/Aaron
== END 2019-07-28 11:15 | disposition other institution (70) | DRG 683 ==
LOC: ED 10:07 → EDHOLD 12:48 → 5E 12:48
PROVIDERS: Emergency Medicine; Internal Medicine Nephrology; ADMIT Internal Medicine
DX: N17.9 Acute kidney failure, unspecified (principal); I50.22 Chronic systolic (congestive) heart failure; I13.0 Hypertensive heart and chronic kidney disease with heart failure and stage 1 through stage 4 chronic kidney disease, or unspecified chronic kidney disease; L97.419 Non-pressure chronic ulcer of right heel and midfoot with unspecified severity; Z68.41 Body mass index [BMI] 40.0-44.9, adult; M62.82 Rhabdomyolysis; E44.0 Moderate protein-calorie malnutrition; R62.7 Adult failure to thrive; N81.3 Complete uterovaginal prolapse; N76.5 Ulceration of vagina; B96.5 Pseudomonas (aeruginosa) (mallei) (pseudomallei) as the cause of diseases classified elsewhere; N13.6 Pyonephrosis; B96.1 Klebsiella pneumoniae [K. pneumoniae] as the cause of diseases classified elsewhere; N18.4 Chronic kidney disease, stage 4 (severe); W18.30XA Fall on same level, unspecified, initial encounter; E11.22 Type 2 diabetes mellitus with diabetic chronic kidney disease; E11.622 Type 2 diabetes mellitus with other skin ulcer; E11.51 Type 2 diabetes mellitus with diabetic peripheral angiopathy without gangrene; I48.0 Paroxysmal atrial fibrillation; I25.10 Atherosclerotic heart disease of native coronary artery without angina pectoris; J44.9 Chronic obstructive pulmonary disease, unspecified; D63.8 Anemia in other chronic diseases classified elsewhere; N25.81 Secondary hyperparathyroidism of renal origin; Z79.899 Other long term (current) drug therapy; Z83.3 Family history of diabetes mellitus; Z79.01 Long term (current) use of anticoagulants; Z82.49 Family history of ischemic heart disease and other diseases of the circulatory system; Z79.4 Long term (current) use of insulin; Z95.810 Presence of automatic (implantable) cardiac defibrillator; Z95.1 Presence of aortocoronary bypass graft; Y93.89 Activity, other specified; Y92.89 Other specified places as the place of occurrence of the external cause; Y99.8 Other external cause status

== ENCOUNTER 2019-08-02 18:07 | Emergency (ER) | payer MEDICARE, MEDICAID ==
[~2019-08-02] VITALS: Ht 162.5 cm; Wt 87.1 kg
[2019-08-02 18:33] LABS: BASO % 0.2 % (0.0-1.0); EOS # 0.1 10*3/uL (0.0-0.4); HEMATOCRIT 26.9 % (37.0-47.0); HEMOGLOBIN 8.1 g/dl (12.0-16.0); LYMPH # 0.8 10*3/uL (1.3-4.4); LYMPH % 6.9 % (27.0-41.0); MEAN CELL VOLUME 88.8 fl (81.0-99.0); MEAN CORPUSCULAR HGB 26.7 pg (27.0-31.0); MEAN CORPUSCULAR HGB CONC 30.1 g/dl (33.0-37.0); MEAN PLATELET VOLUME 10.6 fl (9.6-12.3); MONO # 0.9 10*3/uL (0.1-1.0); MONO % 8.3 % (3.0-9.0); NEUT # 9.3 10*3/uL (2.3-7.9); NEUT % 83.3 % (47.0-73.0); PLATELET COUNT AUTOMATED 151 10*3/uL (130-400); RED BLOOD COUNT 3.03 10*6/uL (4.10-5.10); RED CELL DISTRI WIDTH 20.8 % (0-14.5); WHITE BLOOD COUNT 11.1 10*3/uL (4.8-10.8)
[2019-08-02 18:47] LABS: ALBUMIN 2.3 gm/dl (3.1-4.5); CREATININE 2.03 mg/dL (0.55-1.02); TOTAL PROTEIN 5.9 gm/dL (6.4-8.2)
== END 2019-08-02 20:26 | disposition home or self-care (01) ==
LOC: ED 18:07
PROVIDERS: Nurse Practitioner Family
DX: F42.4 Excoriation (skin-picking) disorder (principal); N93.9 Abnormal uterine and vaginal bleeding, unspecified; Z79.899 Other long term (current) drug therapy; Z79.82 Long term (current) use of aspirin